=== PATIENT | female | born 1955 | race American Indian/Alaskan Native ===

== ENCOUNTER 2017-03-26 07:38 | Inpatient (IN) | payer OTHER ==
[2017-03-26 07:50] LABS: Hematocrit 38.8 % (30.3-42.9); Hemoglobin 12.8 gm/dl (10.1-14.3); Mean Corpuscular HGB Conc 33 % (30-34); Mean Corpuscular Hemoglobin 29 pg (28-32); Mean Corpuscular Volume 88 fl (79-97); Platelet Count 181 K/mm3 (140-440); Red Cell Distribution Width 19.9 % (13.2-15.2); White Blood Count 5.9 K/mm3 (4.5-11.0)
--- NOTE | 2017-03-26 07:59 | Cat Scan Report ---
CT scan of head without IV contrast: No previous studies available for comparison. History: Neural deficits. Findings: Ventricles are midline in location and dilated. Periventricular areas of low-attenuation. Large ill-defined area of low attenuation left temporoparietal region. No compression of the ventricle. No evidence of hemorrhage. No extra-axial fluid collection. Normal brainstem and cerebellum. Impression: Subacute or chronic ischemia in left temporoparietal region. Clinical correlation and if necessary MRI scan may be advised. Dr. García was informed of the findings at 7:52 AM on 03/26/17. [id number]
[2017-03-26 08:05] LABS: INR 2.21 (0.87-1.13)
[2017-03-26] MEDS ORDERED: BABY ASPIRIN PO ONE (08:06)
--- NOTE | 2017-03-26 08:06 | Emergency Department Report ---
ED Neuro Deficit HPI - General Chief Complaint: Neuro Symptoms/Deficit Stated Complaint: CVA Time Seen by Provider: 03/26/17 07:57 Source: patient, family, EMS (verbal report received from EMS.ems notes not available at time of chart dictation), RN notes reviewed Limitations: Physical Limitation - History of Present Illness Initial Comments: This is a 61-year-old female who was previously unknown to this provider. Primary care physician is with the [facility], has a past medical history of congestive heart failure, unknown what her ejection fraction is, stroke, residual right-sided weakness, currently on pradaxa; the patient's does not know when she last took her dose, and the patient is currently a phasic and not able to tell this provider. Patient is brought to the ER by EMS with concern for stroke. As per verbal report from and EMS, patient last seen normal last night, woke up this morning with left-sided hemiparesis and aphasia. The symptoms are constant, no exacerbating or relieving factors, patient is able to indicate "yes/no" to some questions, indicates no chest pain, shortness of breath is there, no abdominal pain, no urinary symptoms. -: unknown Location: speech, left arm, left leg Presenting Symptoms: Present: Weak/Paralyzed One Side, Unable to Speak Clearly History of same: Yes Place: home Severity: severe On Anticoagulants: Yes Context: other (patient woke up with symptoms) Treatments Prior to Arrival: none - Related Data Allergies/Adverse Reactions: Allergies Allergy/AdvReac Type Severity Reaction Status Date / Time No Known Allergies Allergy Verified 03/26/17 07:39 ED Review of Systems ROS: Stated complaint: CVA Other details as noted in HPI Comment: Unobtainable due to pts medical conditions ED Neuro Physical Exam - General Limitations: Physical Limitation General appearance: alert, anxious, in distress Suspected Stroke: Yes - Head Head exam: Present: atraumatic, normocephalic - Eye Eye exam: Present: normal appearance, PERRL, other (patient moves eyes to the right, but will not follow commands to move ice to the left) - ENT ENT exam: Present: normal orophraynx, mucous membranes moist - Neck Neck exam: Present: normal inspection, full ROM. Absent: tenderness, meningismus - Respiratory Respiratory exam: Present: decreased breath sounds. Absent: respiratory distress - Cardiovascular Cardiovascular Exam: Present: normal rhythm, tachycardia, normal heart sounds. Absent: systolic murmur, diastolic murmur, rubs, gallop - GI/Abdominal GI/Abdominal exam: Present: soft, normal bowel sounds. Absent: distended, tenderness, guarding, rebound, rigid, pulsatile mass - Extremities Exam Extremities exam: Present: normal inspection, pedal edema - Back Exam Back exam: Present: normal inspection. Absent: tenderness - Neurological Exam Neurological exam: Present: alert, motor sensory deficit - NIHSS Assessment Interval: Baseline 1a. Level of Consciousness: alert 1b. LOC Questions: answers no questions correctly 1c. LOC Commands: performs tasks correctly 2. Best Gaze: normal (unable to assess) 3. Visual: no visual loss (unable to assess) 4. Facial Palsy: normal symmetrical movement 5b. Motor Arm Right: no drift 5a. Motor Arm Left: no movement 6a. Motor Leg Left: no movement 6b. Motor Leg Right: no drift 7. Limb Ataxia: amputation 8. Sensory: mild/moderate sensory loss (unable to assess) 9. Best Language: mute/global aphasia 10. Dysarthria: intubated or other barrier 11. Extinction/Inattention: no abnormality - Psychiatric Psychiatric exam: Present: anxious - Skin Skin exam: Present: warm, dry, intact, normal color. Absent: rash ED Course Vital Signs 03/26/17 08:16 Temperature 98.4 F Pulse Rate 115 H Respiratory 18 Rate Blood Pressure 159/115 O2 Sat by Pulse 100 Oximetry - Reevaluation(s) Reevaluation #1: 03/26/17 09:35 Change in plans, [facility] does not have beds available at any of their facilities. [place]/ Dr Allen has authorized the patient to be admitted to this hospital. Case is presented to the nurse practitioner,Jarred Marshall; she accepts the patient' s to the medical service. 03/26/17 09:36 - Lab Data Result diagrams: 03/26/17 07:43 03/26/17 07:43 Lab Results 03/26/17 03/26/17 03/26/17 Range/Units 07:43 07:43 07:43 WBC 5.9 (4.5-11.0) K/mm3 RBC 4.40 (3.65-5.03) M/mm3 Hgb 12.8 (10.1-14.3) gm/dl Hct 38.8 (30.3-42.9) % MCV 88 (79-97) fl MCH 29 (28-32) pg MCHC 33 (30-34) % RDW 19.9 H (13.2-15.2) % Plt Count 181 (140-440) K/mm3 [place] % (Auto) [employer] Caret[employer] PT 25.6 H (12.2-14.9) Sec. INR 2.21 H (0.87-1.13) APTT 122.3 H* (24.2-36.6) Sec. Thrombin Time (15.1-19.6) Sec. Sodium 139 (137-145) mmol/L Potassium 4.1 (3.6-5.0) mmol/L Chloride 101.1 (98-107) mmol/L Carbon Dioxide 27 (22-30) mmol/L Anion Gap 15 mmol/L BUN 13 (7-17) mg/dL Creatinine 1.1 (0.7-1.2) mg/dL Estimated GFR 50 ml/min BUN/Creatinine Ratio 12 % Glucose 93 (65-100) mg/dL Calcium 8.1 L (8.4-10.2) mg/dL Troponin T 0.122 H* (0.00-0.029) ng/mL Triglycerides 80 (2-149) mg/dL Cholesterol 90 (50-199) mg/dL LDL Cholesterol Direct 26 L (50-130) mg/dL HDL Cholesterol 48 (40-59) mg/dL Cholesterol/HDL Ratio 1.87 % 03/26/ Range/Units 08:37 WBC (4.5-11.0) K/mm3 RBC (3.65-5.03) M/mm3 Hgb (10.1-14.3) gm/dl Hct (30.3-42.9) % MCV (79-97) fl MCH (28-32) pg MCHC (30-34) % RDW (13.2-15.2) % Plt Count (140-440) K/mm3 [place] % (Auto) PT (12.2-14.9) Sec. INR (0.87-1.13) APTT (24.2-36.6) Sec. Thrombin Time > 120.0 H (15.1-19.6) Sec. Sodium (137-145) mmol/L Potassium (3.6-5.0) mmol/L Chloride (98-107) mmol/L Carbon Dioxide (22-30) mmol/L Anion Gap mmol/L BUN (7-17) mg/dL Creatinine (0.7-1.2) mg/dL Estimated GFR ml/min BUN/Creatinine Ratio % Glucose (65-100) mg/dL Calcium (8.4-10.2) mg/dL Troponin T (0.00-0.029) ng/mL Triglycerides (2-149) mg/dL Cholesterol (50-199) mg/dL LDL Cholesterol Direct (50-130) mg/dL HDL Cholesterol (40-59) mg/dL Cholesterol/HDL Ratio % - EKG Data -: EKG Interpreted by Md - Radiology Data Radiology results: report reviewed, image reviewed X-ray of the chest demonstrates congestive heart failure. Noncontrast CT scan of the brain suggests subacute left-sided temporoparietal CVA - Medical Decision Making Differential diagnosis: Stroke, pneumonia, congestive heart failure, urinary tract infection Assessment and plan: 61-year-old female with wake-up symptoms, elevated NIH score. Patient has failed swallow screen. She is on systemic anticoagulation, last known ingestion is unknown, INR greater than 2, given wake of symptoms, and the aforementioned, patient is not a TPA candidate for thrombolysis candidate. The patient's CT scan was transmitted to [place], case was discussed with their stroke expert, Dr. Israel, and based on the aforementioned, patient is not deemed to be a candidate for endovascular or rescue salvage therapy. Case is discussed with [facility] physician, Dr. Allen, who in turn has presented the case to their stroke neurologist, Dr. Shah, and the patient is accepted to [facility] for definitive evaluation and management. Also found to be in congestive heart failure, Lasix ordered, rectal aspirin administered. - Core Measures Measure Exclusions: not indicated - Thrombolytic Inclusion/Exclusion Thrombolytic Exclusion Criteria: Symptom Onset > 3 Hours Thrombolytic Contraindications: INR > 1.7 seconds Critical care attestation.: If time is entered above; I have spent that time in minutes in the direct care of this critically ill patient, excluding procedure time. ED Disposition Clinical Impression: CHF (congestive heart failure) CVA (cerebral vascular accident) Qualifiers: CVA mechanism: unspecified Qualified Code(s): I63.9 - Cerebral infarction, unspecified Disposition: DC-09 OP ADMIT IP TO THIS HOSP Is pt being admited?: Yes Does the pt Need Aspirin: Yes Condition: Fair Referrals: HILARIO LOPEZ [Other] - 3-5 Days
[2017-03-26 08:07] LABS: Calcium 8.1 mg/dL (8.4-10.2); Chloride 101.1 mmol/L (98-107); Potassium 4.1 mmol/L (3.6-5.0)
[2017-03-26 08:22] LABS: Partial Thromboplastin Time 122.3 Sec. (24.2-36.6)
--- NOTE | 2017-03-26 08:35 | XRay Report ---
AP CHEST :03/26/17 07:38:00 CLINICAL: Difficulty breathing. COMPARISON:None. FINDINGS: The heart is large. Redistribution of pulmonary blood flow to the upper lobes. Bibasal opacities with silhouetting of the right heart border and opacification of the right costophrenic angle. Less opacification in the left lung base. The left hemidiaphragm is partially imaged and the left costophrenic angle is clear. A band of subsegmental atelectasis in the left lung. No tubes or lines. The bones and soft tissues are normal. IMPRESSION: Congestive heart failure with small pleural effusions, right greater than left. No alveolar pulmonary edema.
[2017-03-26] MEDS ORDERED: ASPIRIN PR ONE (08:59)
[2017-03-26] MEDS ORDERED: LASIX IV ONE (09:13)
[2017-03-26] MEDS ORDERED: MILK OF MAGNESIA PO PRN (10:35)
[2017-03-26] MEDS ORDERED: ZOFRAN IV PRN ×2 (10:35→13:44)
[2017-03-26] MEDS ORDERED: TYLENOL PO PRN (10:35)
[2017-03-26] MEDS ORDERED: DULCOLAX PR PRN (10:35)
[2017-03-26] MEDS ORDERED: REGLAN PO PRN ×2 (11:00→13:53)
[2017-03-26] MEDS ORDERED: PHENERGAN PR PRN (11:00)
[2017-03-26] MEDS ORDERED: SODIUM CHLORIDE FLUSH SYRINGE 10 ML IV PRN (11:00)
--- NOTE | 2017-03-26 11:10 | History and Physical Report ---
<BEBEVI SEXTON - Last Filed: 03/27/17 10:24> History of Present Illness Date of examination: 03/26/17 Date of admission: 03/26/17 10:35 Chief complaint: CVA History of present illness: Patient is a 61 years old female with past medical history hypertension, CHF, hypertension, hyperlipidemia and stroke stroke, residual right-sided weakness, currently on pradaxa. 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 patient is unable to describe exacerbating or relieving factors.Unable to obtain history due to patient's mental status. Per ER physician and charts patient is brought to the ER by EMS with concern for stroke. As per verbal report from and EMS, patient last seen normal last night, woke up this morning with left-sided hemiparesis and aphasia. Past History Past Medical History: heart failure, hypertension, hyperlipidemia Past Surgical History: Other (unable to assess due to patient mental status) Social history: other (unable to assess due to patient mental status) Family history: other (unable to assess due to patient mental status) Medications and Allergies Allergies Allergy/AdvReac Type Severity Reaction Status Date / Time No Known Allergies Allergy Verified 03/26/17 07:39 Home Medications Medication Instructions Recorded Confirmed Last Taken Type AtorvaSTATin [Lipitor] 80 mg PO QHS 03/26/17 03/26/17 Unknown History Dabigatran [Pradaxa] 150 mg PO BID 03/26/17 03/26/17 Unknown History ISOSORBIDE MONOnitrate [Imdur ER] 60 mg PO QDAY 03/26/17 03/26/17 Unknown History Lisinopril [Zestril] 5 mg PO QDAY 03/26/17 03/26/17 Unknown History Metoprolol [Lopressor] 25 mg PO DAILY 03/26/17 03/26/17 Unknown History Potassium Chloride [K-Dur] 20 meq PO QDAY 03/26/17 03/26/17 Unknown History Torsemide [Demadex] 20 mg PO DAILY 03/26/17 03/26/17 Unknown History hydrALAZINE [Apresoline] 25 mg PO BID 03/26/17 03/26/17 Unknown History Active Meds: Active Medications Acetaminophen (Tylenol) 650 mg PO Q4H PRN PRN Reason: Pain MILD(1-3)/Fever >100.5/BURGESS Aspirin (Aspirin) 300 mg GA QDAY KARLENE Atorvastatin Calcium (Lipitor) 80 mg PO QHS KARLENE Bisacodyl (Dulcolax) 10 mg GA QDAY PRN PRN Reason: Constipation unrelieved by MOM Magnesium Hydroxide (Milk Of Magnesia) 30 ml PO Q4H PRN PRN Reason: Constipation Metoclopramide HCl (Reglan) 10 mg PO Q6H PRN PRN Reason: Nausea And Vomiting Ondansetron HCl (Zofran) 4 mg IV Q8H PRN PRN Reason: N/V unrelieved by Reglan Promethazine HCl (Phenergan) 25 mg GA Q6H PRN PRN Reason: Nausea And Vomiting Simvastatin (Zocor) 20 mg PO QHS KARLENE Sodium Chloride (Sodium Chloride Flush Syringe 10 Ml) 10 ml IV PRN PRN PRN Reason: LINE FLUSH Review of Systems ROS unobtainable: due to mental status (unable to assess due to patient mental status) Exam - Constitutional Vitals: Temp Pulse Resp BP Pulse Ox 98.4 F 115 H 18 159/115 100 03/26/17 08:16 03/26/17 08:16 03/26/17 08:16 03/26/17 08:16 03/26/17 08:16 General appearance: Present: other ( Patient aphasic and does not speak) - EENT Eyes: Present: PERRL ENT: hearing intact - Neck Neck: Present: supple - Respiratory Respiratory effort: normal - Cardiovascular Rhythm: regular Heart Sounds: Present: S1 & S2 - Extremities Extremities: abnormal (left side Weakness) Extremity abnormal: other (left-sided weakness) - Abdominal General gastrointestinal: Present: soft, non-tender Female genitourinary: Present: deferred - Rectal Rectal Exam: deferred - Integumentary Integumentary: Present: clear, warm, dry - Musculoskeletal Musculoskeletal: left sided weakness, other (left-sided weakness) - Psychiatric Psychiatric: other (impaired judgment) - Neurologic Neurologic: other (can move right lower and upper extremity) - Allied Health Allied health notes reviewed: nursing Results - Labs CBC & Chem 7: 03/27/17 04:38 03/27/17 04:38 Labs: Laboratory Last Values WBC 5.9 K/mm3 (4.5-11.0) 03/26/17 07:43 RBC 4.40 M/mm3 (3.65-5.03) 03/26/17 07:43 Hgb 12.8 gm/dl (10.1-14.3) 03/26/17 07:43 Hct 38.8 % (30.3-42.9) 03/26/17 07:43 MCV 88 fl (79-97) 03/26/17 07:43 MCH 29 pg (28-32) 03/26/17 07:43 MCHC 33 % (30-34) 03/26/17 07:43 RDW 19.9 % (13.2-15.2) H 03/26/17 07:43 Plt Count 181 K/mm3 (140-440) 03/26/17 07:43 [place] % (Auto) Outreach Consultant 03/26/17 07:43 PT 25.6 Sec. (12.2-14.9) H 03/26/17 07:43 INR 2.21 (0.87-1.13) H 03/26/17 07:43 APTT 122.3 Sec. (24.2-36.6) H* 03/26/17 07:43 Thrombin Time > 120.0 Sec. (15.1-19.6) H 03/26/17 08:37 Sodium 139 mmol/L (137-145) 03/26/17 07:43 Potassium 4.1 mmol/L (3.6-5.0) 03/26/17 07:43 Chloride 101.1 mmol/L (98-107) 03/26/17 07:43 Carbon Dioxide 27 mmol/L (22-30) 03/26/17 07:43 Anion Gap 15 mmol/L 03/26/17 07:43 BUN 13 mg/dL (7-17) 03/26/17 07:43 Creatinine 1.1 mg/dL (0.7-1.2) 03/26/17 07:43 Estimated GFR 50 ml/min 03/26/17 07:43 BUN/Creatinine Ratio 12 % 03/26/17 07:43 Glucose 93 mg/dL (65-100) 03/26/17 07:43 POC Glucose 98 (70-105) 03/26/17 10:07 Calcium 8.1 mg/dL (8.4-10.2) L 03/26/17 07:43 Troponin T 0.122 ng/mL (0.00-0.029) H* 03/26/17 07:43 Triglycerides 80 mg/dL (2-149) 03/26/17 07:43 Cholesterol 90 mg/dL (50-199) 03/26/17 07:43 LDL Cholesterol Direct 26 mg/dL (50-130) L 03/26/17 07:43 HDL Cholesterol 48 mg/dL (40-59) 03/26/17 07:43 Cholesterol/HDL Ratio 1.87 % 03/26/17 07:43 - Imaging and Cardiology CT Scan - head: image reviewed (Noncontrast CT scan of the brain suggests subacute left-sided temporoparietal CVA) Assessment and Plan Assessment and plan: Acute Cerebrovascular accident (CVA) Noncontrast CT scan of the brain suggests subacute left-sided temporoparietal CVA No TPA candidate given wake up with symptoms. In addition, patient not an endovascular candidate given NR greater than 2.. MRI ordered VL carotid ordered Echocardiogram ordered Started on aspirin and hold Pradaxa for Hypercoagulable state Resume statins Frequent neuro checks. Neurology consult Supportive care Left-side Hemiparesis Ethology Cerebrovascular Physical /occupational therapy on board Supportive care Acute on chronic systolic Congestive heart failure Recent Echocardiogram in [place] awaiting for medical report. Restart on Diuresis, beta blockers and ACEI/ARB Strict I&O's and daily weights Low-sodium/cardiac diet/fluid restriction 1200mL in 24 hours. Closely monitor electrolytes Cardiology evaluation Hypertensive urgency/emergency Gently IV hydralazine for SBP> 160 Closely monitor blood pressure Urinary tract infection follow urine cultures Initiated empiric IV Levaquin Gently IV fluid despite of CHF Suspected pneumonia Chest xray shows pleural effusion Initiated empiric IV Levaquin Hypercoagulable state hold Pradaxa for Hypercoagulable state Closely monitor INR DVT prophylaxis SCD for now Advance Directives: Yes VTE prophylaxis?: Mechanical Contraindication Mechanical VTE Prophylaxis: Contraindicated Plan of care discussed with patient/family: Yes <LEE FOSTER R - Last Filed: 03/27/17 10:44> History of Present Illness Date of admission: 03/26/17 10:35 Medications and Allergies Active Meds: Active Medications Acetaminophen (Tylenol) 650 mg PO Q4H PRN PRN Reason: Pain MILD(1-3)/Fever >100.5/BURGESS Atorvastatin Calcium (Lipitor) 80 mg PO QHS [facility] Last Admin: 03/26/17 21:02 Dose: Not Given Bisacodyl (Dulcolax) 10 mg GA QDAY PRN PRN Reason: Constipation unrelieved by MOM Dextrose (D50w (25gm) Syringe) 25 ml IV PRN PRN PRN Reason: Hypoglycemia Levofloxacin/Dextrose (Levaquin 750mg/150ml) 750 mg in 150 mls @ 100 mls/hr IV Q48H KARLENE PRN Reason: Protocol Last Admin: 03/26/17 14:56 Dose: 100 mls/hr Dextrose/Sodium Chloride (D5ns) 1,000 mls @ 75 mls/hr IV DIRECT KARLENE Last Admin: 03/27/17 05:57 Dose: 75 mls/hr Magnesium Hydroxide (Milk Of Magnesia) 30 ml PO Q4H PRN PRN Reason: Constipation Metoclopramide HCl (Reglan) 5 mg PO Q6H PRN PRN Reason: Nausea And Vomiting Ondansetron HCl (Zofran) 4 mg IV Q8H PRN PRN Reason: N/V unrelieved by Reglan Potassium Chloride (K-Dur) 20 meq PO QDAY [facility] Promethazine HCl (Phenergan) 25 mg GA Q6H PRN PRN Reason: Nausea And Vomiting Sodium Chloride (Sodium Chloride Flush Syringe 10 Ml) 10 ml IV PRN PRN PRN Reason: LINE FLUSH Exam - Constitutional Vitals: Temp Pulse Resp BP Pulse Ox 98.1 F 97 H 20 120/66 99 03/27/17 04:39 03/27/17 04:39 03/27/17 04:39 03/27/17 04:39 03/27/17 04:39 Results - Labs CBC & Chem 7: 03/27/17 04:38 03/27/17 04:38 Labs: Laboratory Last Values WBC 5.1 K/mm3 (4.5-11.0) 03/27/17 04:38 RBC 4.37 M/mm3 (3.65-5.03) 03/27/17 04:38 Hgb 12.9 gm/dl (10.1-14.3) 03/27/17 04:38 Hct 38.4 % (30.3-42.9) 03/27/17 04:38 MCV 88 fl (79-97) 03/27/17 04:38 MCH 30 pg (28-32) 03/27/17 04:38 MCHC 34 % (30-34) 03/27/17 04:38 RDW 20.1 % (13.2-15.2) H 03/27/17 04:38 Plt Count 177 K/mm3 (140-440) 03/27/17 04:38 [place] % (Auto) Outreach Consultant 03/27/17 04:38 Add Manual Diff Complete 03/27/17 04:38 Total Counted 100 03/27/17 04:38 Seg Neuts % (Manual) 73.0 % (40.0-70.0) H 03/27/17 04:38 Band Neutrophils % 0 % 03/27/17 04:38 Lymphocytes % (Manual) 18.0 % (13.4-35.0) 03/27/17 04:38 Reactive Lymphs % (Man) 2.0 % 03/27/17 04:38 Monocytes % (Manual) 6.0 % (0.0-7.3) 03/27/17 04:38 Eosinophils % (Manual) 1.0 % (0.0-4.3) 03/27/17 04:38 Basophils % (Manual) 0 % (0.0-1.8) 03/27/17 04:38 Metamyelocytes % 0 % 03/27/17 04:38 Myelocytes % 0 % 03/27/17 04:38 Promyelocytes % 0 % 03/27/17 04:38 Blast Cells % 0 % 03/27/17 04:38 Nucleated RBC % Not Reportable 03/27/17 04:38 Seg Neutrophils # Man 3.7 K/mm3 (1.8-7.7) 03/27/17 04:38 Band Neutrophils # 0.0 K/mm3 03/27/17 04:38 Lymphocytes # (Manual) 0.9 K/mm3 (1.2-5.4) L 03/27/17 04:38 Abs React Lymphs (Man) 0.1 K/mm3 03/27/17 04:38 Monocytes # (Manual) 0.3 K/mm3 (0.0-0.8) 03/27/17 04:38 Eosinophils # (Manual) 0.1 K/mm3 (0.0-0.4) 03/27/17 04:38 Basophils # (Manual) 0.0 K/mm3 (0.0-0.1) 03/27/17 04:38 Metamyelocytes # 0.0 K/mm3 03/27/17 04:38 Myelocytes # 0.0 K/mm3 03/27/17 04:38 Promyelocytes # 0.0 K/mm3 03/27/17 04:38 Blast Cells # 0.0 K/mm3 03/27/17 04:38 WBC Morphology Not Reportable 03/27/17 04:38 Hypersegmented Neuts Not Reportable 03/27/17 04:38 Hyposegmented Neuts Not Reportable 03/27/17 04:38 Hypogranular Neuts Not Reportable 03/27/17 04:38 Smudge Cells Not Reportable 03/27/17 04:38 Toxic Granulation Not Reportable 03/27/17 04:38 Toxic Vacuolation Not Reportable 03/27/17 04:38 Dohle Bodies Not Reportable 03/27/17 04:38 Pelger-Huet Anomaly Not Reportable 03/27/17 04:38 Kristin Rods Not Reportable 03/27/17 04:38 Platelet Estimate Consistent w auto 03/27/17 04:38 Clumped Platelets Not Reportable 03/27/17 04:38 Plt Clumps, EDTA Not Reportable 03/27/17 04:38 Large Platelets Few 03/27/17 04:38 Giant Platelets Not Reportable 03/27/17 04:38 Platelet Satelliting Not Reportable 03/27/17 04:38 Plt Morphology Comment Not Reportable 03/27/17 04:38 RBC Morphology Not Reportable 03/27/17 04:38 Dimorphic RBCs Not Reportable 03/27/17 04:38 Polychromasia Not Reportable 03/27/17 04:38 Hypochromasia 1+ 03/27/17 04:38 Poikilocytosis Not Reportable 03/27/17 04:38 Anisocytosis 1+ 03/27/17 04:38 Microcytosis Not Reportable 03/27/17 04:38 Macrocytosis 1+ 03/27/17 04:38 Spherocytes Not Reportable 03/27/17 04:38 Pappenheimer Bodies Not Reportable 03/27/17 04:38 Sickle Cells Not Reportable 03/27/17 04:38 Target Cells 1+ 03/27/17 04:38 Tear Drop Cells Not Reportable 03/27/17 04:38 Ovalocytes Not Reportable 03/27/17 04:38 Helmet Cells Not Reportable 03/27/17 04:38 [place] Bodies Not Reportable 03/27/17 04:38 [place] Rings Not Reportable 03/27/17 04:38 [place] Cells Not Reportable 03/27/17 04:38 Bite Cells Not Reportable 03/27/17 04:38 Crenated Cell Not Reportable 03/27/17 04:38 Elliptocytes Not Reportable 03/27/17 04:38 Acanthocytes (Spur) Not Reportable 03/27/17 04:38 Rouleaux Not Reportable 03/27/17 04:38 Hemoglobin C Crystals Not Reportable 03/27/17 04:38 Schistocytes Not Reportable 03/27/17 04:38 Malaria parasites Not Reportable 03/27/17 04:38 Wilver Bodies Not Reportable 03/27/17 04:38 Hem Pathologist Commnt No 03/27/17 04:38 PT 22.8 Sec. (12.2-14.9) H 03/27/17 04:38 INR 1.91 (0.87-1.13) H 03/27/17 04:38 APTT 107.4 Sec. (24.2-36.6) H* 03/27/17 04:38 Thrombin Time > 120.0 Sec. (15.1-19.6) H 03/26/17 08:37 Sodium 142 mmol/L (137-145) 03/27/17 04:38 Potassium 3.9 mmol/L (3.6-5.0) 03/27/17 04:38 Chloride 100.0 mmol/L (98-107) 03/27/17 04:38 Carbon Dioxide 27 mmol/L (22-30) 03/27/17 04:38 Anion Gap 19 mmol/L 03/27/17 04:38 BUN 13 mg/dL (7-17) 03/27/17 04:38 Creatinine 1.2 mg/dL (0.7-1.2) 03/27/17 04:38 Estimated GFR 55 ml/min 03/27/17 04:38 BUN/Creatinine Ratio 11 % 03/27/17 04:38 Glucose 120 mg/dL (65-100) H 03/27/17 04:38 POC Glucose 113 (70-105) H 03/27/17 07:32 Calcium 8.2 mg/dL (8.4-10.2) L 03/27/17 04:38 Total Bilirubin 0.90 mg/dL (0.1-1.2) 03/27/17 04:38 AST 39 units/L (5-40) 03/27/17 04:38 ALT 30 units/L (7-56) 03/27/17 04:38 Alkaline Phosphatase 118 units/L (35-129) 03/27/17 04:38 Total Creatine Kinase 84 units/L (30-135) 03/27/17 04:38 CK-MB (CK-2) 2.3 ng/mL (0.0-4.0) 03/27/17 04:38 CK-MB (CK-2) Rel Index 2.7 (0-4) 03/27/17 04:38 Troponin T 0.074 ng/mL (0.00-0.029) H D 03/26/17 14:51 Total Protein 6.0 g/dL (6.3-8.2) L 03/27/17 04:38 Albumin 2.3 g/dL (3.9-5) L 03/27/17 04:38 Albumin/Globulin Ratio 0.6 % 03/27/17 04:38 Triglycerides 80 mg/dL (2-149) 03/26/17 07:43 Cholesterol 90 mg/dL (50-199) 03/26/17 07:43 LDL Cholesterol Direct 26 mg/dL (50-130) L 03/26/17 07:43 HDL Cholesterol 48 mg/dL (40-59) 03/26/17 07:43 Cholesterol/HDL Ratio 1.87 % 03/26/17 07:43 Urine Color Red (Yellow) 03/26/17 12:06 Urine Turbidity Clear (Clear) 03/26/17 12:06 Urine pH 7.0 (5.0-7.0) 03/26/17 12:06 Ur Specific [place] 1.010 (1.003-1.030) 03/26/17 12:06 Urine Protein 100 mg/dl mg/dL (Negative) 03/26/17 12:06 Urine Glucose (UA) Neg mg/dL (Negative) 03/26/17 12:06 Urine Ketones Neg mg/dL (Negative) 03/26/17 12:06 Urine Blood Lg (Negative) 03/26/17 12:06 Urine Nitrite Neg (Negative) 03/26/17 12:06 Urine Bilirubin Neg (Negative) 03/26/17 12:06 Urine Urobilinogen < 2.0 mg/dL (<2.0) 03/26/17 12:06 Ur Leukocyte Esterase Sm (Negative) 03/26/17 12:06 Urine WBC (Auto) > 182.0 /HPF (0.0-6.0) H 03/26/17 12:06 Urine RBC (Auto) > 182.0 /HPF (0.0-6.0) 03/26/17 12:06 U Epithel Cells (Auto) 11.0 /HPF (0-13.0) 03/26/17 12:06 Urine Bacteria (Auto) 1+ /HPF (Negative) 03/26/17 12:06 Assessment and Plan Assessment and plan: I saw and evaluated the patient on 03/26/17. I agree with the findings and the plan of care as documented in the Nurse Practitioner's~note. Will hold aspirin , pradaxa for for Hypercoagulable state .
[2017-03-26 11:44] LABS: Blastocytes % (Manual) 0 %
[2017-03-26 11:45] LABS: Basophils % (Manual) 0 % (0.0-1.8)
[2017-03-26 11:47] LABS: Anisocytosis 1+; Hypochromasia 1+; Macrocytosis 1+
[2017-03-26 11:48] LABS: Diff Status Complete
[2017-03-26 13:24] LABS: Bacteria,Urine 1+ /HPF (Negative); Bilirubin,Urine NEG (Negative); Blood,Urine LG (Negative); Ketones,Urine NEG (Negative); Leukocyte Esterase,Urine SM (Negative); Nitrite,Urine NEG (Negative); Urobilinogen,Urine < 2.0 mg/dL (<2.0)
[2017-03-26 13:34] LABS: RBC,Urine > 182.0 /HPF (0.0-6.0); WBC,Urine > 182.0 /HPF (0.0-6.0)
[2017-03-26] MEDS ORDERED: LEVAQUIN 750MG/150ML 750 MG/150 ML BAG IV SCH (14:15)
[2017-03-26] MEDS ORDERED: D50W (25GM) Vial IV PRN (20:37)
[2017-03-26] MEDS ORDERED: D50W (25GM) Syringe IV ONE (20:49)
[2017-03-26] MEDS ORDERED: D50W (25GM) Syringe IV PRN (20:50)
[2017-03-26] MEDS: D5NS 1,000 ML IV SCH (20:51)
[2017-03-26] MEDS ORDERED: ZOCOR PO SCH (22:00)
[2017-03-27 05:28] LABS: Hematocrit 38.4 % (30.3-42.9); Hemoglobin 12.9 gm/dl (10.1-14.3); Mean Corpuscular HGB Conc 34 % (30-34); Mean Corpuscular Hemoglobin 30 pg (28-32); Mean Corpuscular Volume 88 fl (79-97); Platelet Count 177 K/mm3 (140-440); Red Blood Count 4.37 M/mm3 (3.65-5.03); White Blood Count 5.1 K/mm3 (4.5-11.0)
[2017-03-27 05:31] LABS: Red Cell Distribution Width 20.1 % (13.2-15.2)
[2017-03-27 05:35] LABS: INR 1.91 (0.87-1.13)
[2017-03-27 05:45] LABS: Creatine Kinase MB 2.3 ng/mL (0.0-4.0)
[2017-03-27 05:55] LABS: Albumin 2.3 g/dL (3.9-5); Albumin/Globulin Ratio 0.6 %; Bilirubin,Total 0.9 mg/dL (0.1-1.2); Calcium 8.2 mg/dL (8.4-10.2); Potassium 3.9 mmol/L (3.6-5.0)
[2017-03-27] MEDS: D5NS 1,000 ML IV SCH (05:57)
[2017-03-27 06:07] LABS: Partial Thromboplastin Time 107.4 Sec. (24.2-36.6)
[2017-03-27 07:27] LABS: Blastocytes % (Manual) 0 %
[2017-03-27 07:28] LABS: Anisocytosis 1+; Basophils % (Manual) 0 % (0.0-1.8); Hypochromasia 1+; Macrocytosis 1+; Target Cells 1+
[2017-03-27 07:29] LABS: Diff Status Complete; Large Platelets Few; Platelet Estimate Consistent w Auto
--- NOTE | 2017-03-27 07:33 | Progress Note ---
Hospitalist Physical - Constitutional Vitals: Temp Pulse Resp BP Pulse Ox 98.1 F 97 H 20 120/66 99 03/27/17 04:39 03/27/17 04:39 03/27/17 04:39 03/27/17 04:39 03/27/17 04:39 General appearance: Present: other ( Patient aphasic and does not speak) Results - Labs CBC & Chem 7: 03/27/17 04:38 03/27/17 04:38 Labs: Laboratory Last Values WBC 5.1 K/mm3 (4.5-11.0) 03/27/17 04:38 RBC 4.37 M/mm3 (3.65-5.03) 03/27/17 04:38 Hgb 12.9 gm/dl (10.1-14.3) 03/27/17 04:38 Hct 38.4 % (30.3-42.9) 03/27/17 04:38 MCV 88 fl (79-97) 03/27/17 04:38 MCH 30 pg (28-32) 03/27/17 04:38 MCHC 34 % (30-34) 03/27/17 04:38 RDW 20.1 % (13.2-15.2) H 03/27/17 04:38 Plt Count 177 K/mm3 (140-440) 03/27/17 04:38 [place] % (Auto) Butter Fat Tester 03/27/17 04:38 Add Manual Diff Complete 03/27/17 04:38 Total Counted 100 03/27/17 04:38 Seg Neuts % (Manual) 73.0 % (40.0-70.0) H 03/27/17 04:38 Band Neutrophils % 0 % 03/27/17 04:38 Lymphocytes % (Manual) 18.0 % (13.4-35.0) 03/27/17 04:38 Reactive Lymphs % (Man) 2.0 % 03/27/17 04:38 Monocytes % (Manual) 6.0 % (0.0-7.3) 03/27/17 04:38 Eosinophils % (Manual) 1.0 % (0.0-4.3) 03/27/17 04:38 Basophils % (Manual) 0 % (0.0-1.8) 03/27/17 04:38 Metamyelocytes % 0 % 03/27/17 04:38 Myelocytes % 0 % 03/27/17 04:38 Promyelocytes % 0 % 03/27/17 04:38 Blast Cells % 0 % 03/27/17 04:38 Nucleated RBC % Not Reportable 03/27/17 04:38 Seg Neutrophils # Man 3.7 K/mm3 (1.8-7.7) 03/27/17 04:38 Band Neutrophils # 0.0 K/mm3 03/27/17 04:38 Lymphocytes # (Manual) 0.9 K/mm3 (1.2-5.4) L 03/27/17 04:38 Abs React Lymphs (Man) 0.1 K/mm3 03/27/17 04:38 Monocytes # (Manual) 0.3 K/mm3 (0.0-0.8) 03/27/17 04:38 Eosinophils # (Manual) 0.1 K/mm3 (0.0-0.4) 03/27/17 04:38 Basophils # (Manual) 0.0 K/mm3 (0.0-0.1) 03/27/17 04:38 Metamyelocytes # 0.0 K/mm3 03/27/17 04:38 Myelocytes # 0.0 K/mm3 03/27/17 04:38 Promyelocytes # 0.0 K/mm3 03/27/17 04:38 Blast Cells # 0.0 K/mm3 03/27/17 04:38 WBC Morphology Not Reportable 03/27/17 04:38 Hypersegmented Neuts Not Reportable 03/27/17 04:38 Hyposegmented Neuts Not Reportable 03/27/17 04:38 Hypogranular Neuts Not Reportable 03/27/17 04:38 Smudge Cells Not Reportable 03/27/17 04:38 Toxic Granulation Not Reportable 03/27/17 04:38 Toxic Vacuolation Not Reportable 03/27/17 04:38 Dohle Bodies Not Reportable 03/27/17 04:38 Pelger-Huet Anomaly Not Reportable 03/27/17 04:38 Kristin Rods Not Reportable 03/27/17 04:38 Platelet Estimate Consistent w auto 03/27/17 04:38 Clumped Platelets Not Reportable 03/27/17 04:38 Plt Clumps, EDTA Not Reportable 03/27/17 04:38 Large Platelets Few 03/27/17 04:38 Giant Platelets Not Reportable 03/27/17 04:38 Platelet Satelliting Not Reportable 03/27/17 04:38 Plt Morphology Comment Not Reportable 03/27/17 04:38 RBC Morphology Not Reportable 03/27/17 04:38 Dimorphic RBCs Not Reportable 03/27/17 04:38 Polychromasia Not Reportable 03/27/17 04:38 Hypochromasia 1+ 03/27/17 04:38 Poikilocytosis Not Reportable 03/27/17 04:38 Anisocytosis 1+ 03/27/17 04:38 Microcytosis Not Reportable 03/27/17 04:38 Macrocytosis 1+ 03/27/17 04:38 Spherocytes Not Reportable 03/27/17 04:38 Pappenheimer Bodies Not Reportable 03/27/17 04:38 Sickle Cells Not Reportable 03/27/17 04:38 Target Cells 1+ 03/27/17 04:38 Tear Drop Cells Not Reportable 03/27/17 04:38 Ovalocytes Not Reportable 03/27/17 04:38 Helmet Cells Not Reportable 03/27/17 04:38 [place] Bodies Not Reportable 03/27/17 04:38 [place] Rings Not Reportable 03/27/17 04:38 Lul Cells Not Reportable 03/27/17 04:38 Bite Cells Not Reportable 03/27/17 04:38 Crenated Cell Not Reportable 03/27/17 04:38 Elliptocytes Not Reportable 03/27/17 04:38 Acanthocytes (Spur) Not Reportable 03/27/17 04:38 Rouleaux Not Reportable 03/27/17 04:38 Hemoglobin C Crystals Not Reportable 03/27/17 04:38 Schistocytes Not Reportable 03/27/17 04:38 Malaria parasites Not Reportable 03/27/17 04:38 Wilver Bodies Not Reportable 03/27/17 04:38 Hem Pathologist Commnt No 03/27/17 04:38 PT 22.8 Sec. (12.2-14.9) H 03/27/17 04:38 INR 1.91 (0.87-1.13) H 03/27/17 04:38 APTT 107.4 Sec. (24.2-36.6) H* 03/27/17 04:38 Thrombin Time > 120.0 Sec. (15.1-19.6) H 03/26/17 08:37 Sodium 142 mmol/L (137-145) 03/27/17 04:38 Potassium 3.9 mmol/L (3.6-5.0) 03/27/17 04:38 Chloride 100.0 mmol/L (98-107) 03/27/17 04:38 Carbon Dioxide 27 mmol/L (22-30) 03/27/17 04:38 Anion Gap 19 mmol/L 03/27/17 04:38 BUN 13 mg/dL (7-17) 03/27/17 04:38 Creatinine 1.2 mg/dL (0.7-1.2) 03/27/17 04:38 Estimated GFR 55 ml/min 03/27/17 04:38 BUN/Creatinine Ratio 11 % 03/27/17 04:38 Glucose 120 mg/dL (65-100) H 03/27/17 04:38 POC Glucose 130 (70-105) H 03/26/17 21:30 Calcium 8.2 mg/dL (8.4-10.2) L 03/27/17 04:38 Total Bilirubin 0.90 mg/dL (0.1-1.2) 03/27/17 04:38 AST 39 units/L (5-40) 03/27/17 04:38 ALT 30 units/L (7-56) 03/27/17 04:38 Alkaline Phosphatase 118 units/L (35-129) 03/27/17 04:38 Total Creatine Kinase 84 units/L (30-135) 03/27/17 04:38 CK-MB (CK-2) 2.3 ng/mL (0.0-4.0) 03/27/17 04:38 CK-MB (CK-2) Rel Index 2.7 (0-4) 03/27/17 04:38 Troponin T 0.074 ng/mL (0.00-0.029) H D 03/26/17 14:51 Total Protein 6.0 g/dL (6.3-8.2) L 03/27/17 04:38 Albumin 2.3 g/dL (3.9-5) L 03/27/17 04:38 Albumin/Globulin Ratio 0.6 % 03/27/17 04:38 Triglycerides 80 mg/dL (2-149) 03/26/17 07:43 Cholesterol 90 mg/dL (50-199) 03/26/17 07:43 LDL Cholesterol Direct 26 mg/dL (50-130) L 03/26/17 07:43 HDL Cholesterol 48 mg/dL (40-59) 03/26/17 07:43 Cholesterol/HDL Ratio 1.87 % 03/26/17 07:43 Urine Color Red (Yellow) 03/26/17 12:06 Urine Turbidity Clear (Clear) 03/26/17 12:06 Urine pH 7.0 (5.0-7.0) 03/26/17 12:06 Ur Specific [place] 1.010 (1.003-1.030) 03/26/17 12:06 Urine Protein 100 mg/dl mg/dL (Negative) 03/26/17 12:06 Urine Glucose (UA) Neg mg/dL (Negative) 03/26/17 12:06 Urine Ketones Neg mg/dL (Negative) 03/26/17 12:06 Urine Blood Lg (Negative) 03/26/17 12:06 Urine Nitrite Neg (Negative) 03/26/17 12:06 Urine Bilirubin Neg (Negative) 03/26/17 12:06 Urine Urobilinogen < 2.0 mg/dL (<2.0) 03/26/17 12:06 Ur Leukocyte Esterase Sm (Negative) 03/26/17 12:06 Urine WBC (Auto) > 182.0 /HPF (0.0-6.0) H 03/26/17 12:06 Urine RBC (Auto) > 182.0 /HPF (0.0-6.0) 03/26/17 12:06 U Epithel Cells (Auto) 11.0 /HPF (0-13.0) 03/26/17 12:06 Urine Bacteria (Auto) 1+ /HPF (Negative) 03/26/17 12:06
[2017-03-27] MEDS ORDERED: ASPIRIN PR SCH (10:00)
[2017-03-27] MEDS ORDERED: K-DUR PO SCH (10:00)
--- NOTE | 2017-03-27 13:05 | Magnetic Resonance Report ---
MRI OF THE BRAIN WITHOUT CONTRAST: HISTORY: CVA PROCEDURE: Multiplanar, multisequence MR imaging of the brain without IV contrast was performed. FINDINGS: The CT head without contrast dated 03/26/17 was reviewed. MRI demonstrates a large area of diffusion restriction throughout most of the right MCA distribution measuring 10.5 x 4.9 cm in axial plane. There is diffusion restriction throughout the posterior right frontal lobe, right temporal lobe, right parietal lobe and right basal ganglia. There is mild edema in these areas on the T2 weighted images but no evidence for hemorrhage or significant mass effect. Moderate volume loss and chronic white matter changes are identified. Chronic lacunar infarcts are identified in the bilateral thalami and bilateral ankur. An approximate 4 cm cortical infarct is identified in the left parietal lobe The midline structures are central. The basal cisterns are patent. Normal ventricular size. The orbital cavities and sella turcica demonstrate no abnormality. The visualized paranasal sinuses and mastoid air cells are well aerated. IMPRESSION: Large area diffusion restriction throughout most of the right MCA distribution consistent with a subacute ischemic infarct. Chronic white matter changes and volume loss. Chronic lacunar infarcts in the basal ganglia and ankur. Chronic cortical infarct in the left parietal lobe.
--- NOTE | 2017-03-27 15:08 | Progress Note ---
Assessment and Plan Assessment and plan: Patient is a 61 years old female with past medical history hypertension, CHF, hypertension, hyperlipidemia and stroke stroke, residual right-sided weakness, currently on pradaxa. 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 patient is unable to describe exacerbating or relieving factors.Unable to obtain history due to patient's mental status. Per ER physician and charts patient is brought to the ER by EMS with concern for stroke. As per verbal report from and EMS, patient last seen normal last night, woke up this morning with left-sided hemiparesis and aphasia. Acute Cerebrovascular accident (CVA) Noncontrast CT scan of the brain suggests subacute left-sided temporoparietal CVA No TPA candidate given wake up with symptoms. In addition, patient not an endovascular candidate given NR greater than 2.. MRI revealed large area of diffusion restriction throughout the right MCA distribution consistent with subacute ischemic infarct . VL carotid Echocardiogram with Ef of 10-15% on 03/27/2017 Started on aspirin and hold Pradaxa for Hypercoagulable state Continue statins Frequent neuro checks. Failed swallow evaluation and placed NG tube for now Neurology consult Supportive care Left-side Hemiparesis Ethology Cerebrovascular Physical /occupational therapy on board Supportive care Acute on chronic systolic Congestive heart failure Recent Echocardiogram Ef of 10-15% on 03/27/2017 Restart on Diuresis, beta blockers and ACEI/ARB Strict I&O's and daily weights Low-sodium/cardiac diet/fluid restriction 1200mL in 24 hours. 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 Hospitalist Physical - Constitutional Vitals: Temp Pulse Resp BP Pulse Ox 98.1 F 97 H 20 120/66 99 03/27/17 04:39 03/27/17 04:39 03/27/17 04:39 03/27/17 04:39 03/27/17 04:39 General appearance: Present: other ( Patient aphasic and does not speak) - EENT Eyes: Present: PERRL ENT: hearing intact - Neck Neck: Present: supple - Respiratory Respiratory: bilateral: CTA - Cardiovascular Rhythm: regular Heart Sounds: Present: S1 & S2 - Extremities Extremity abnormal: other (upper and lower extremity weakness) - Abdominal General gastrointestinal: soft, non-tender - Integumentary Integumentary: Present: clear, warm, dry - Psychiatric Psychiatric: other (impiared judgment) - Neurologic Neurologic: other (can move right lower and upper extremity)) - Allied Health Allied health notes reviewed: nursing Results - Labs CBC & Chem 7: 03/27/17 04:38 03/27/17 04:38 Labs: Laboratory Last Values WBC 5.1 K/mm3 (4.5-11.0) 03/27/17 04:38 RBC 4.37 M/mm3 (3.65-5.03) 03/27/17 04:38 Hgb 12.9 gm/dl (10.1-14.3) 03/27/17 04:38 Hct 38.4 % (30.3-42.9) 03/27/17 04:38 MCV 88 fl (79-97) 03/27/17 04:38 MCH 30 pg (28-32) 03/27/17 04:38 MCHC 34 % (30-34) 03/27/17 04:38 RDW 20.1 % (13.2-15.2) H 03/27/17 04:38 Plt Count 177 K/mm3 (140-440) 03/27/17 04:38 [place] % (Auto) Protective Signal Repairer 03/27/17 04:38 Add Manual Diff Complete 03/27/17 04:38 Total Counted 100 03/27/17 04:38 Seg Neuts % (Manual) 73.0 % (40.0-70.0) H 03/27/17 04:38 Band Neutrophils % 0 % 03/27/17 04:38 Lymphocytes % (Manual) 18.0 % (13.4-35.0) 03/27/17 04:38 Reactive Lymphs % (Man) 2.0 % 03/27/17 04:38 Monocytes % (Manual) 6.0 % (0.0-7.3) 03/27/17 04:38 Eosinophils % (Manual) 1.0 % (0.0-4.3) 03/27/17 04:38 Basophils % (Manual) 0 % (0.0-1.8) 03/27/17 04:38 Metamyelocytes % 0 % 03/27/17 04:38 Myelocytes % 0 % 03/27/17 04:38 Promyelocytes % 0 % 03/27/17 04:38 Blast Cells % 0 % 03/27/17 04:38 Nucleated RBC % Not Reportable 03/27/17 04:38 Seg Neutrophils # Man 3.7 K/mm3 (1.8-7.7) 03/27/17 04:38 Band Neutrophils # 0.0 K/mm3 03/27/17 04:38 Lymphocytes # (Manual) 0.9 K/mm3 (1.2-5.4) L 03/27/17 04:38 Abs React Lymphs (Man) 0.1 K/mm3 03/27/17 04:38 Monocytes # (Manual) 0.3 K/mm3 (0.0-0.8) 03/27/17 04:38 Eosinophils # (Manual) 0.1 K/mm3 (0.0-0.4) 03/27/17 04:38 Basophils # (Manual) 0.0 K/mm3 (0.0-0.1) 03/27/17 04:38 Metamyelocytes # 0.0 K/mm3 03/27/17 04:38 Myelocytes # 0.0 K/mm3 03/27/17 04:38 Promyelocytes # 0.0 K/mm3 03/27/17 04:38 Blast Cells # 0.0 K/mm3 03/27/17 04:38 WBC Morphology Not Reportable 03/27/17 04:38 Hypersegmented Neuts Not Reportable 03/27/17 04:38 Hyposegmented Neuts Not Reportable 03/27/17 04:38 Hypogranular Neuts Not Reportable 03/27/17 04:38 Smudge Cells Not Reportable 03/27/17 04:38 Toxic Granulation Not Reportable 03/27/17 04:38 Toxic Vacuolation Not Reportable 03/27/17 04:38 Dohle Bodies Not Reportable 03/27/17 04:38 Pelger-Huet Anomaly Not Reportable 03/27/17 04:38 Kristin Rods Not Reportable 03/27/17 04:38 Platelet Estimate Consistent w auto 03/27/17 04:38 Clumped Platelets Not Reportable 03/27/17 04:38 Plt Clumps, EDTA Not Reportable 03/27/17 04:38 Large Platelets Few 03/27/17 04:38 Giant Platelets Not Reportable 03/27/17 04:38 Platelet Satelliting Not Reportable 03/27/17 04:38 Plt Morphology Comment Not Reportable 03/27/17 04:38 RBC Morphology Not Reportable 03/27/17 04:38 Dimorphic RBCs Not Reportable 03/27/17 04:38 Polychromasia Not Reportable 03/27/17 04:38 Hypochromasia 1+ 03/27/17 04:38 Poikilocytosis Not Reportable 03/27/17 04:38 Anisocytosis 1+ 03/27/17 04:38 Microcytosis Not Reportable 03/27/17 04:38 Macrocytosis 1+ 03/27/17 04:38 Spherocytes Not Reportable 03/27/17 04:38 Pappenheimer Bodies Not Reportable 03/27/17 04:38 Sickle Cells Not Reportable 03/27/17 04:38 Target Cells 1+ 03/27/17 04:38 Tear Drop Cells Not Reportable 03/27/17 04:38 Ovalocytes Not Reportable 03/27/17 04:38 Helmet Cells Not Reportable 03/27/17 04:38 [place] Bodies Not Reportable 03/27/17 04:38 [place] Rings Not Reportable 03/27/17 04:38 Lul Cells Not Reportable 03/27/17 04:38 Bite Cells Not Reportable 03/27/17 04:38 Crenated Cell Not Reportable 03/27/17 04:38 Elliptocytes Not Reportable 03/27/17 04:38 Acanthocytes (Spur) Not Reportable 03/27/17 04:38 Rouleaux Not Reportable 03/27/17 04:38 Hemoglobin C Crystals Not Reportable 03/27/17 04:38 Schistocytes Not Reportable 03/27/17 04:38 Malaria parasites Not Reportable 03/27/17 04:38 Wilver Bodies Not Reportable 03/27/17 04:38 Hem Pathologist Commnt No 03/27/17 04:38 PT 22.8 Sec. (12.2-14.9) H 03/27/17 04:38 INR 1.91 (0.87-1.13) H 03/27/17 04:38 APTT 107.4 Sec. (24.2-36.6) H* 03/27/17 04:38 Thrombin Time > 120.0 Sec. (15.1-19.6) H 03/26/17 08:37 Sodium 142 mmol/L (137-145) 03/27/17 04:38 Potassium 3.9 mmol/L (3.6-5.0) 03/27/17 04:38 Chloride 100.0 mmol/L (98-107) 03/27/17 04:38 Carbon Dioxide 27 mmol/L (22-30) 03/27/17 04:38 Anion Gap 19 mmol/L 03/27/17 04:38 BUN 13 mg/dL (7-17) 03/27/17 04:38 Creatinine 1.2 mg/dL (0.7-1.2) 03/27/17 04:38 Estimated GFR 55 ml/min 03/27/17 04:38 BUN/Creatinine Ratio 11 % 03/27/17 04:38 Glucose 120 mg/dL (65-100) H 03/27/17 04:38 POC Glucose 95 (70-105) 03/27/17 11:50 Calcium 8.2 mg/dL (8.4-10.2) L 03/27/17 04:38 Total Bilirubin 0.90 mg/dL (0.1-1.2) 03/27/17 04:38 AST 39 units/L (5-40) 03/27/17 04:38 ALT 30 units/L (7-56) 03/27/17 04:38 Alkaline Phosphatase 118 units/L (35-129) 03/27/17 04:38 Total Creatine Kinase 84 units/L (30-135) 03/27/17 04:38 CK-MB (CK-2) 2.3 ng/mL (0.0-4.0) 03/27/17 04:38 CK-MB (CK-2) Rel Index 2.7 (0-4) 03/27/17 04:38 Troponin T 0.074 ng/mL (0.00-0.029) H D 03/26/17 14:51 NT-Pro-B Natriuret Pep 15629 pg/mL (0-900) H 03/27/17 04:38 Total Protein 6.0 g/dL (6.3-8.2) L 03/27/17 04:38 Albumin 2.3 g/dL (3.9-5) L 03/27/17 04:38 Albumin/Globulin Ratio 0.6 % 03/27/17 04:38 Triglycerides 80 mg/dL (2-149) 03/26/17 07:43 Cholesterol 90 mg/dL (50-199) 03/26/17 07:43 LDL Cholesterol Direct 26 mg/dL (50-130) L 03/26/17 07:43 HDL Cholesterol 48 mg/dL (40-59) 03/26/17 07:43 Cholesterol/HDL Ratio 1.87 % 03/26/17 07:43 Urine Color Red (Yellow) 03/26/17 12:06 Urine Turbidity Clear (Clear) 03/26/17 12:06 Urine pH 7.0 (5.0-7.0) 03/26/17 12:06 Ur Specific [place] 1.010 (1.003-1.030) 03/26/17 12:06 Urine Protein 100 mg/dl mg/dL (Negative) 03/26/17 12:06 Urine Glucose (UA) Neg mg/dL (Negative) 03/26/17 12:06 Urine Ketones Neg mg/dL (Negative) 03/26/17 12:06 Urine Blood Lg (Negative) 03/26/17 12:06 Urine Nitrite Neg (Negative) 03/26/17 12:06 Urine Bilirubin Neg (Negative) 03/26/17 12:06 Urine Urobilinogen < 2.0 mg/dL (<2.0) 03/26/17 12:06 Ur Leukocyte Esterase Sm (Negative) 03/26/17 12:06 Urine WBC (Auto) > 182.0 /HPF (0.0-6.0) H 03/26/17 12:06 Urine RBC (Auto) > 182.0 /HPF (0.0-6.0) 03/26/17 12:06 U Epithel Cells (Auto) 11.0 /HPF (0-13.0) 03/26/17 12:06 Urine Bacteria (Auto) 1+ /HPF (Negative) 03/26/17 12:06
--- NOTE | 2017-03-27 15:20 | Event Note ---
Date: 03/27/17 Detailed cardiology consultation dictated. Pt is followed by [facility] cardiology. Pt recently discharged from [place] on 03/25/2017 following tx for HF. A: #1: Acute CVA #3: Acute combined systolic and diastolic HF #4: NSTEMI type II - troponins trending down; ECG with NAF #5: Dilated CMP - EF 10-15%; no thrombus visualized on current echo. #6: H/O LV thrombus (diagnosed 07/2016) - has been on Pradaxa #7: CAD, s/p STEMI with PCI of LAD which was 100% occluded, 90% circ, 40% RCA, EF 40% - [place] [facility] [place] #8: CKD #9: Hypercoagulability - INR 2.21 on admission #10: H/o CVA with residual right sided weakness and aphasia #11: DM #12: Accelerated HTN #13: h/o noncompliance due to financial difficulties P: Cont ASA, statin, BB, ACEI, nitrates, IV diuretics. Hold Pradaxa in setting of recent CVA and elevated INR. Await neuro consultation. Dimple PARIS NP / DR. MATAMOROS
[2017-03-27 16:35] VITALS: BP 149/91
--- NOTE | 2017-03-27 17:25 | Consultation ---
History of Present Illness - Reason for Consult Consult date: 03/27/17 stroke - History of Present Illness spoke with Dr. Patel and exam shows lefts ided weakness that is very severe gaze to the right and will not look to the left side.... she is chronically aphasic and not speaking but very lert.... no seizures at present and very much slow to respond the CT/ MRI/ECHO were all reviewed and there are major issues with left and right heart failure as well as valvve dysfunction on the HILDA the pattern of old and new infarcts is considerable.... especially in the new infarct right MCA proxinal due to embolus there is old infarct in the left hemisphere two by my count both appear to be embolic she was recently discharged from [facility] for heart failure in my view needs more effective anticoagulation on transfer back to [facility] Past History Past Medical History: heart failure, hypertension, hyperlipidemia Past Surgical History: Other (unable to assess due to patient mental status) Social history: other (unable to assess due to patient mental status) Family history: other (unable to assess due to patient mental status) Medications and Allergies Allergies Allergy/AdvReac Type Severity Reaction Status Date / Time No Known Allergies Allergy Verified 03/26/17 07:39 Home Medications Medication Instructions Recorded Confirmed Last Taken Type AtorvaSTATin [Lipitor] 80 mg PO QHS 03/26/17 03/26/17 Unknown History Dabigatran [Pradaxa] 150 mg PO BID 03/26/17 03/26/17 Unknown History ISOSORBIDE MONOnitrate [Imdur ER] 60 mg PO QDAY 03/26/17 03/26/17 Unknown History Lisinopril [Zestril] 5 mg PO QDAY 03/26/17 03/26/17 Unknown History Metoprolol [Lopressor] 25 mg PO DAILY 03/26/17 03/26/17 Unknown History Potassium Chloride [K-Dur] 20 meq PO QDAY 03/26/17 03/26/17 Unknown History Torsemide [Demadex] 20 mg PO DAILY 03/26/17 03/26/17 Unknown History hydrALAZINE [Apresoline] 25 mg PO BID 03/26/17 03/26/17 Unknown History Active Meds: Active Medications Acetaminophen (Tylenol) 650 mg PO Q4H PRN PRN Reason: Pain MILD(1-3)/Fever >100.5/BURGESS Aspirin (Aspirin) 300 mg KS QDAY KARLENE Atorvastatin Calcium (Lipitor) 80 mg PO QHS [facility] Last Admin: 03/26/17 21:02 Dose: Not Given Bisacodyl (Dulcolax) 10 mg KS QDAY PRN PRN Reason: Constipation unrelieved by MOM Dextrose (D50w (25gm) Syringe) 25 ml IV PRN PRN PRN Reason: Hypoglycemia Furosemide (Lasix) 20 mg IV QDAY [facility] Levofloxacin/Dextrose (Levaquin 750mg/150ml) 750 mg in 150 mls @ 100 mls/hr IV Q48H KARLENE PRN Reason: Protocol Last Admin: 03/26/17 14:56 Dose: 100 mls/hr Dextrose/Sodium Chloride (D5ns) 1,000 mls @ 75 mls/hr IV DIRECT KARLENE Last Admin: 03/27/17 05:57 Dose: 75 mls/hr Lisinopril (Zestril) 5 mg PO QDAY [facility] Magnesium Hydroxide (Milk Of Magnesia) 30 ml PO Q4H PRN PRN Reason: Constipation Metoclopramide HCl (Reglan) 5 mg PO Q6H PRN PRN Reason: Nausea And Vomiting Metoprolol Succinate (Toprol Xl) 25 mg PO QDAY [facility] Nitroglycerin (Nitro-Bid 2%) 1 inch TP BIDNTG [facility] PRN Reason: Protocol Ondansetron HCl (Zofran) 4 mg IV Q8H PRN PRN Reason: N/V unrelieved by Reglan Potassium Chloride (K-Dur) 20 meq PO QDAY [facility] Promethazine HCl (Phenergan) 25 mg KS Q6H PRN PRN Reason: Nausea And Vomiting Sodium Chloride (Sodium Chloride Flush Syringe 10 Ml) 10 ml IV PRN PRN PRN Reason: LINE FLUSH Exam - Constitutional Vitals: Temp Pulse Resp BP Pulse Ox 99.3 F 50 L 20 149/91 94 03/27/17 16:33 03/27/17 16:33 03/27/17 16:33 03/27/17 16:33 03/27/17 16:33 Results - Labs CBC & Chem 7: 03/27/17 04:38 03/27/17 04:38 Labs: Abnormal lab results 03/26/17 03/26/17 03/27/17 Range/Units 20:35 21:30 04:38 RDW 20.1 H (13.2-15.2) % Seg Neuts % (Manual) 73.0 H (40.0-70.0) % Lymphocytes # (Manual) 0.9 L (1.2-5.4) K/mm3 PT (12.2-14.9) Sec. INR (0.87-1.13) APTT (24.2-36.6) Sec. Glucose (65-100) mg/dL POC Glucose 66 L 130 H (70-105) Calcium (8.4-10.2) mg/dL NT-Pro-B Natriuret Pep (0-900) pg/mL Total Protein (6.3-8.2) g/dL Albumin (3.9-5) g/dL 03/27/17 03/27/17 03/27/17 Range/Units 04:38 04:38 04:38 RDW (13.2-15.2) % Seg Neuts % (Manual) (40.0-70.0) % Lymphocytes # (Manual) (1.2-5.4) K/mm3 PT 22.8 H (12.2-14.9) Sec. INR 1.91 H (0.87-1.13) APTT 107.4 H* (24.2-36.6) Sec. Glucose 120 H (65-100) mg/dL POC Glucose (70-105) Calcium 8.2 L (8.4-10.2) mg/dL NT-Pro-B Natriuret Pep 55539 H (0-900) pg/mL Total Protein 6.0 L (6.3-8.2) g/dL Albumin 2.3 L (3.9-5) g/dL 03/27/17 03/27/17 Range/Units 07:32 15:23 RDW (13.2-15.2) % Seg Neuts % (Manual) (40.0-70.0) % Lymphocytes # (Manual) (1.2-5.4) K/mm3 PT (12.2-14.9) Sec. INR (0.87-1.13) APTT (24.2-36.6) Sec. Glucose (65-100) mg/dL POC Glucose 113 H 116 H (70-105) Calcium (8.4-10.2) mg/dL NT-Pro-B Natriuret Pep (0-900) pg/mL Total Protein (6.3-8.2) g/dL Albumin (3.9-5) g/dL
--- NOTE | 2017-03-27 17:26 | Discharge Summary ---
<LEE FOSTER - Last Filed: 03/27/17 17:23> Providers - Providers Date of Admission: 03/26/17 10:35 Date of discharge: 03/27/17 Attending physician: LEE FOSTER 03/26/17 10:42 Consult to Case Management [CONS] Routine Services Needed at Discharge: Physical Therapy Occupational Therapy Other Notified:: correctional case managermedical affairs manager Therapy Evaluate and Treat [CONS] Routine Comment: Reason For Exam: Neuro deficits Physical Therapy Evaluation and Treat [CONS] Routine Comment: Reason For Exam: Neuro deficits 03/26/17 10:49 Speech Therapy Evaluation and Treat [CONS] Routine Reason For Exam: swallow eval 03/26/17 13:44 Consult to Case Management [CONS] Routine Services Needed at Discharge: Hand Wrapper Operator Notified:: correctional case managermedical affairs manager Therapy Evaluate and Treat [CONS] Routine Comment: Reason For Exam: Neuro deficits Physical Therapy Evaluation and Treat [CONS] Routine Comment: Reason For Exam: Neuro deficits 03/26/17 17:22 Consult to Physician [CONS] Routine Consulting Provider: LETA BELTRAN Reason For Exam: CVA Place consult to:: yes Notified:: y Phone number called:: yes 03/27/17 11:33 Consult to Physician [CONS] Routine Consulting Provider: SHIRA HOLLINS Reason For Exam: elevated troponin Place consult to:: hubert Notified:: yes If yes, spoke with:: fartun Time called:: 13:20 03/27/17 15:53 Consult to Dietitian/Nutrition [CONS] Routine Physician Instructions: Reason For Exam: Reason for Consult: Write/Manage Tube Feeding Hospitalization Condition: Fair Disposition: DC/TX-70 ANOTHER TYPE HLTHCARE Exam - Constitutional Vitals: Temp Pulse Resp BP Pulse Ox 99.3 F 50 L 20 149/91 94 03/27/17 16:33 03/27/17 16:33 03/27/17 16:33 03/27/17 16:33 03/27/17 16:33 Plan Activity: other (bedrest) Diet: per dietitian instruction Follow up with: HILARIO LOPEZ [Other] - 3-5 Days <VI GOMEZ - Last Filed: 03/27/17 21:25> Providers - Providers Date of Admission: 03/26/17 10:35 Attending physician: LEE FOSTER 03/26/17 10:42 Consult to Case Management [CONS] Routine Services Needed at Discharge: Physical Therapy Occupational Therapy Other Notified:: correctional case managermedical affairs manager Therapy Evaluate and Treat [CONS] Routine Comment: Reason For Exam: Neuro deficits Physical Therapy Evaluation and Treat [CONS] Routine Comment: Reason For Exam: Neuro deficits 03/26/17 10:49 Speech Therapy Evaluation and Treat [CONS] Routine Reason For Exam: swallow eval 03/26/17 13:44 Consult to Case Management [CONS] Routine Services Needed at Discharge: Hand Wrapper Operator Notified:: correctional case managermedical affairs manager Therapy Evaluate and Treat [CONS] Routine Comment: Reason For Exam: Neuro deficits Physical Therapy Evaluation and Treat [CONS] Routine Comment: Reason For Exam: Neuro deficits 03/26/17 17:22 Consult to Physician [CONS] Routine Consulting Provider: LETA BELTRAN Reason For Exam: CVA Place consult to:: yes Notified:: y Phone number called:: yes 03/27/17 11:33 Consult to Physician [CONS] Routine Consulting Provider: SHIRA HOLLINS Reason For Exam: elevated troponin Place consult to:: hubert Notified:: yes If yes, spoke with:: fartun Time called:: 13:20 03/27/17 15:53 Consult to Dietitian/Nutrition [CONS] Routine Physician Instructions: Reason For Exam: Reason for Consult: Write/Manage Tube Feeding Exam - Constitutional Vitals: Temp Pulse Resp BP Pulse Ox 99.3 F 50 L 20 149/91 94 03/27/17 16:33 03/27/17 16:33 03/27/17 16:33 03/27/17 16:33 03/27/17 16:33
--- NOTE | 2017-03-27 17:28 | Consultation ---
History of Present Illness - Reason for Consult Consult date: 03/27/17 neuro - History of Present Illness since patient going back to [place] I would perfer they decide on the pradaxa question noted INR is 2.2 in past did have documented ventricular thrombus Past History Past Medical History: heart failure, hypertension, hyperlipidemia Past Surgical History: Other (unable to assess due to patient mental status) Social history: other (unable to assess due to patient mental status) Family history: other (unable to assess due to patient mental status) Medications and Allergies Allergies Allergy/AdvReac Type Severity Reaction Status Date / Time No Known Allergies Allergy Verified 03/26/17 07:39 Home Medications Medication Instructions Recorded Confirmed Last Taken Type AtorvaSTATin [Lipitor] 80 mg PO QHS 03/26/17 03/26/17 Unknown History Dabigatran [Pradaxa] 150 mg PO BID 03/26/17 03/26/17 Unknown History ISOSORBIDE MONOnitrate [Imdur ER] 60 mg PO QDAY 03/26/17 03/26/17 Unknown History Lisinopril [Zestril] 5 mg PO QDAY 03/26/17 03/26/17 Unknown History Metoprolol [Lopressor] 25 mg PO DAILY 03/26/17 03/26/17 Unknown History Potassium Chloride [K-Dur] 20 meq PO QDAY 03/26/17 03/26/17 Unknown History Torsemide [Demadex] 20 mg PO DAILY 03/26/17 03/26/17 Unknown History hydrALAZINE [Apresoline] 25 mg PO BID 03/26/17 03/26/17 Unknown History Aspirin [Aspirin SUPPOS] 300 mg AZ QDAY supp.rect 03/27/17 Unknown Rx D5w/0.9% NaCl [D5ns] 50 ml IV DIRECT #1 bag 03/27/17 Unknown Rx Lisinopril [Zestril TAB] 5 mg PO QDAY tablet 03/27/17 Unknown Rx Metoprolol Xl [Metoprolol 25 mg PO QDAY tablet 03/27/17 Unknown Rx SUCCINATE ER TAB] Active Meds: Active Medications Acetaminophen (Tylenol) 650 mg PO Q4H PRN PRN Reason: Pain MILD(1-3)/Fever >100.5/BURGESS Aspirin (Aspirin) 300 mg AZ QDAY KARLENE Atorvastatin Calcium (Lipitor) 80 mg PO QHS [facility] Last Admin: 03/26/17 21:02 Dose: Not Given Bisacodyl (Dulcolax) 10 mg AZ QDAY PRN PRN Reason: Constipation unrelieved by MOM Dextrose (D50w (25gm) Syringe) 25 ml IV PRN PRN PRN Reason: Hypoglycemia Furosemide (Lasix) 20 mg IV QDAY [facility] Levofloxacin/Dextrose (Levaquin 750mg/150ml) 750 mg in 150 mls @ 100 mls/hr IV Q48H KARLENE PRN Reason: Protocol Last Admin: 03/26/17 14:56 Dose: 100 mls/hr Dextrose/Sodium Chloride (D5ns) 1,000 mls @ 75 mls/hr IV DIRECT KARLENE Last Admin: 03/27/17 05:57 Dose: 75 mls/hr Lisinopril (Zestril) 5 mg PO QDAY [facility] Magnesium Hydroxide (Milk Of Magnesia) 30 ml PO Q4H PRN PRN Reason: Constipation Metoclopramide HCl (Reglan) 5 mg PO Q6H PRN PRN Reason: Nausea And Vomiting Metoprolol Succinate (Toprol Xl) 25 mg PO QDAY [facility] Nitroglycerin (Nitro-Bid 2%) 1 inch TP BIDNTG KARLENE PRN Reason: Protocol Ondansetron HCl (Zofran) 4 mg IV Q8H PRN PRN Reason: N/V unrelieved by Reglan Potassium Chloride (K-Dur) 20 meq PO QDAY [facility] Promethazine HCl (Phenergan) 25 mg AZ Q6H PRN PRN Reason: Nausea And Vomiting Sodium Chloride (Sodium Chloride Flush Syringe 10 Ml) 10 ml IV PRN PRN PRN Reason: LINE FLUSH Exam - Constitutional Vitals: Temp Pulse Resp BP Pulse Ox 99.3 F 50 L 20 149/91 94 03/27/17 16:33 03/27/17 16:33 03/27/17 16:33 03/27/17 16:33 03/27/17 16:33 Results - Labs CBC & Chem 7: 03/27/17 04:38 03/27/17 04:38 Labs: Abnormal lab results 03/26/17 03/26/17 03/27/17 Range/Units 20:35 21:30 04:38 RDW 20.1 H (13.2-15.2) % Seg Neuts % (Manual) 73.0 H (40.0-70.0) % Lymphocytes # (Manual) 0.9 L (1.2-5.4) K/mm3 PT (12.2-14.9) Sec. INR (0.87-1.13) APTT (24.2-36.6) Sec. Glucose (65-100) mg/dL POC Glucose 66 L 130 H (70-105) Calcium (8.4-10.2) mg/dL NT-Pro-B Natriuret Pep (0-900) pg/mL Total Protein (6.3-8.2) g/dL Albumin (3.9-5) g/dL 03/27/17 03/27/17 03/27/17 Range/Units 04:38 04:38 04:38 RDW (13.2-15.2) % Seg Neuts % (Manual) (40.0-70.0) % Lymphocytes # (Manual) (1.2-5.4) K/mm3 PT 22.8 H (12.2-14.9) Sec. INR 1.91 H (0.87-1.13) APTT 107.4 H* (24.2-36.6) Sec. Glucose 120 H (65-100) mg/dL POC Glucose (70-105) Calcium 8.2 L (8.4-10.2) mg/dL NT-Pro-B Natriuret Pep 66204 H (0-900) pg/mL Total Protein 6.0 L (6.3-8.2) g/dL Albumin 2.3 L (3.9-5) g/dL 03/27/17 03/27/17 Range/Units 07:32 15:23 RDW (13.2-15.2) % Seg Neuts % (Manual) (40.0-70.0) % Lymphocytes # (Manual) (1.2-5.4) K/mm3 PT (12.2-14.9) Sec. INR (0.87-1.13) APTT (24.2-36.6) Sec. Glucose (65-100) mg/dL POC Glucose 113 H 116 H (70-105) Calcium (8.4-10.2) mg/dL NT-Pro-B Natriuret Pep (0-900) pg/mL Total Protein (6.3-8.2) g/dL Albumin (3.9-5) g/dL
--- NOTE | 2017-03-27 21:34 | Discharge Summary ---
Providers - Providers Date of Admission: 03/26/17 10:35 Date of discharge: 03/27/17 Attending physician: LEE FOSTER 03/26/17 10:42 Consult to Case Management [CONS] Routine Services Needed at Discharge: Physical Therapy Occupational Therapy Other Notified:: piano case and bench assemblerclinical research manager Therapy Evaluate and Treat [CONS] Routine Comment: Reason For Exam: Neuro deficits Physical Therapy Evaluation and Treat [CONS] Routine Comment: Reason For Exam: Neuro deficits 03/26/17 10:49 Speech Therapy Evaluation and Treat [CONS] Routine Reason For Exam: swallow eval 03/26/17 13:44 Consult to Case Management [CONS] Routine Services Needed at Discharge: Certified Juvenile Probation Officer Notified:: piano case and bench assemblerclinical research manager Therapy Evaluate and Treat [CONS] Routine Comment: Reason For Exam: Neuro deficits Physical Therapy Evaluation and Treat [CONS] Routine Comment: Reason For Exam: Neuro deficits 03/26/17 17:22 Consult to Physician [CONS] Routine Consulting Provider: LETA BELTRAN Reason For Exam: CVA Place consult to:: nikki Notified:: y Phone number called:: yes 03/27/17 11:33 Consult to Physician [CONS] Routine Consulting Provider: SHIRA HOLLINS Reason For Exam: elevated troponin Place consult to:: hubert Notified:: yes If yes, spoke with:: fartun Time called:: 13:20 03/27/17 15:53 Consult to Dietitian/Nutrition [CONS] Routine Physician Instructions: Reason For Exam: Reason for Consult: Write/Manage Tube Feeding Hospitalization Reason for admission: CVA Condition: Fair Hospital course: Patient is a 61 years old female with past medical history hypertension, CHF, hypertension, hyperlipidemia and stroke, residual right-sided weakness, currently on pradaxa. Patient primary care physician is with the [facility]. [facility] does not have beds available at any of their facilities yesterday. [place]/ Dr Allen has authorized the patient to be admitted to [facility]. Patient currently stares off and aphasic and does not speak, but is able to follow commands such as hand business operations coordinator. patient is unable to describe exacerbating or relieving factors. Per ER physician and charts patient is brought to the ER by EMS with concern for stroke. As per verbal report from and EMS, patient last seen normal last night, woke up this morning with left-sided hemiparesis and aphasia. Patient diagnosed with Acute Cerebrovascular accident ( CVA), Left-side Hemiparesis, Acute on chronic systolic Congestive heart failure , Hypertensive urgency/emergency, Urinary tract infection,Hypercoagulable state and Suspected pneumonia. MRI revealed large area of diffusion restriction throughout the right MCA distribution consistent with subacute ischemic infarct. Non contrast CT scan of the brain suggests subacute left-sided temporoparietal CVA. No TPA candidate given wake up with symptoms. In addition, patient not an endovascular candidate given NR greater than 2. Echocardiogram with Ef of 10-15%. VL carotid WNL. Chest xray shows pleural effusion. She was treated with ASA, Statins, Diuresis, beta blockers and ACEI/ARB and IV antibiotics. Hold Pradaxa due to Hypercoagulable state. Patient failed swallow evaluation and placed on NG tube. Yovana co-managed with Neurology.Patient clinically improved and stable for transfer. She is being transferred to [facility] per patient insurance request. Discharged diagnosed Acute Cerebrovascular accident (CVA) Left-side Hemiparesis Acute on chronic systolic Congestive heart failure Hypertensive urgency/emergency Urinary tract infection Hypercoagulable state Disposition: DC/TX-70 ANOTHER TYPE HLTHCARE Time spent for discharge: 37 minutes Core Measure Documentation - Palliative Care Palliative Care/ Comfort Measures: Not Applicable - Core Measures Any of the following diagnoses?: stroke - Stroke Discharge Requirements Statin for LDL = or >70 mg/dl on DC: Yes Anticoag for atrial fib/atrial flutter: Not Applicable (INR 2.4) Antithrombotic for ischemic stroke: No Reason for no antithrombotic on DC: Medical Contraindication (INR>2) Exam - Constitutional Vitals: Temp Pulse Resp BP Pulse Ox 99.3 F 50 L 20 149/91 94 03/27/17 16:33 03/27/17 16:33 03/27/17 16:33 03/27/17 16:33 03/27/17 16:33 General appearance: Present: other (Weak/Paralyzed One Side, Unable to Speak Clearly) - EENT Eyes: Present: PERRL (patient moves eyes to the right, but will not follow commands to move ice to the left)) ENT: hearing intact - Neck Neck: Present: supple - Respiratory Respiratory effort: normal Respiratory: bilateral: CTA - Cardiovascular Rhythm: regular Heart Sounds: Present: S1 & S2 - Extremities Extremities: abnormal (Weak/Paralyzed on left-side) - Abdominal General gastrointestinal: Present: soft, non-tender Female genitourinary: Present: deferred - Rectal Rectal Exam: deferred - Integumentary Integumentary: Present: clear, warm, dry - Musculoskeletal Musculoskeletal: left sided weakness - Psychiatric Psychiatric: other (impaired judgment) - Neurologic Neurologic: focal deficits, other (Moves right upper and lower extremities) - Allied Health Allied health notes reviewed: nursing Plan Activity: fall precautions Diet: low fat, low cholesterol, low salt Follow up with: HILARIO LOPEZ [Other] - 3-5 Days
[2017-03-28] MEDS ORDERED: NITRO-BID 2% TP SCH (06:00)
[2017-03-28] MEDS ORDERED: ZESTRIL PO SCH (10:00)
[2017-03-28] MEDS ORDERED: LASIX IV SCH (10:00)
[2017-03-28] MEDS ORDERED: IMDUR PO SCH (10:00)
[2017-03-28] MEDS ORDERED: ASPIRIN PR SCH (10:00)
[2017-03-28] MEDS ORDERED: TOPROL XL PO SCH (10:00)
--- NOTE | 2017-03-28 15:46 | Consultation ---
DATE OF SERVICE: 03/27/2017 Consultation is requested by Dr. Veronica Patel. CONSULTING PHYSICIAN: Dr. Jeremie Torres. HISTORY OF PRESENT ILLNESS: This is a 61-year-old female, who was admitted to the hospital on 03/26/2017 with history of sudden onset of weakness of the left upper and lower extremities as well as aphasia for further evaluation and management. History is now primarily obtained from the review of records. Family is not available at this time. The patient is also not able to give any history because of the aphasia. The patient was recently admitted to [facility] and was discharged only on 03/25/2017. At the time of discharge, the patient was doing well, although she has prior history of cerebrovascular accident and right hemiparesis. According to the at the time of admission, he told the ER physician that the patient went to bed normally, but in the morning, they found that she was not able to talk and she has weakness on the left upper and lower extremities, so EMS was called and the patient was brought to the Emergency Room. Workup revealed cerebrovascular accident with facial left hemiparesis. The patient is known to have coronary artery disease and has had coronary angioplasty with stent placement and she is also known to have ischemic cardiomyopathy with a history of congestive heart failure, hence cardiac evaluation is requested. At this time, the patient does not appear to be in any acute distress. PAST MEDICAL HISTORY: Includes history of cerebrovascular accident with right hemiparesis, history of coronary artery disease with ST elevation myocardial infarction and PCI of the left anterior descending artery, which was 100% occluded in 07/2016. At that time, the patient also had a 40% right coronary artery lesion. Ejection fraction then was 40%. The patient has history of hypertension, diabetes mellitus, hyperlipidemia, chronic kidney disease. The patient was noted to have dilated cardiomyopathy with ejection fraction of 20% during her most recent admission. The patient apparently had mural thrombus at the time of cerebrovascular accident and so was placed on anticoagulation. FAMILY HISTORY: Unremarkable. SOCIAL HISTORY: The patient is unable to give any history at this time. She is a nonsmoker, nonalcoholic currently. REVIEW OF SYSTEMS: Could not be obtained. ALLERGIES: None known to medications. MEDICATIONS: The patient was on Imdur 60 mg daily, lisinopril 5 mg daily, metoprolol 25 mg daily, KCl 20 mEq daily, torsemide 20 mg daily, hydralazine 25 mg b.i.d., aspirin 81 mg daily, simvastatin 20 mg daily, atorvastatin 80 mg daily. PHYSICAL EXAMINATION: GENERAL: This is a 61-year-old female, well built, well nourished, no acute distress at the present time. The patient is aphasic, unable to give any history. SKIN: Warm and dry. HEENT: Pupils reacting. NECK: Supple. Both carotids well palpable. Faint bilateral carotid bruit noted. No JVD. CHEST: Breath sounds are heard equally well on both sides. No rales or rhonchi. HEART: S1, S2 heard well. She does have a grade 2/6 systolic murmur best heard at the aortic area and left sternal border. No diastolic murmur. No gallop rhythm. ABDOMEN: Soft, nontender. Liver and spleen not palpable. Bowel sounds well heard normally. EXTREMITIES: No edema, no calf tenderness. Good pedal pulses. NEUROLOGICAL: Evaluation revealed left-sided weakness. The patient also has some weakness on the right side. She is aphasic. RECTAL: Not done at this time. PELVIC: Not done at this time. LABORATORY DATA: The patient's hemoglobin was 12.8, hematocrit 38.8. BUN was 13 and creatinine 1.2. Sugar was 120. DIAGNOSTIC DATA: The patient's CT scan of the head suggests subacute left-sided temporoparietal cerebrovascular accident. IMPRESSION: 1. Acute cerebrovascular accident, left sided, with left hemiparesis and aphasia. 2. Buvjv-do-gmyifob systolic heart failure. 3. Accelerated hypertension. 4. History of diabetes mellitus. 5. History of coronary artery disease, status post coronary angioplasty with a stent placement of the left anterior descending in 07/2016. 6. Ischemic cardiomyopathy with ejection fraction of 10% to 15%. 7. History of mural thrombus. PLAN: At this time, the patient's cardiovascular ____ appears stable. Agree with the present management. Monitor the blood pressure and continue medications, keep it under control. Resume medications to treat congestive heart failure and monitor the renal function and potassium closely. I reviewed the echocardiogram. Ejection fraction is down to 10% to 15%. The patient has severe tricuspid regurgitation and moderate mitral regurgitation, but I do not see any definite mural thrombus on the echocardiogram at this time. So, the exact etiology of cerebrovascular accident is unclear. The patient was on anticoagulation. Agree with obtaining carotid studies. Monitor the rhythm closely. Rest of the plan as per orders. Thank you very much for this consultation. We will follow the patient along with you. JOB# [id number] SKYLA/NICHOLE
== END 2017-03-27 17:53 | disposition other institution (70) | DRG 64 ==
LOC: ED 07:38 → 4A 10:35
PROVIDERS: ADMIT Internal Medicine; ATTEND Internal Medicine
DX: I63.9 Cerebral infarction, unspecified (principal); I50.23 Acute on chronic systolic (congestive) heart failure; G81.94 Hemiplegia, unspecified affecting left nondominant side; I16.1 Hypertensive emergency; I11.0 Hypertensive heart disease with heart failure; N39.0 Urinary tract infection, site not specified; D68.59 Other primary thrombophilia; I16.0 Hypertensive urgency; E78.5 Hyperlipidemia, unspecified; I25.5 Ischemic cardiomyopathy; E11.9 Type 2 diabetes mellitus without complications; I25.10 Atherosclerotic heart disease of native coronary artery without angina pectoris; Z98.61 Coronary angioplasty status
CPT/HCPCS: 36415; 70450; 70551; 71010; 80048; 80053; 80061; 81001; 82550; 82553; 82962; 83880; 84484; 85007; 85025; 85610; 85670; 85730; 87086; 93005; 93010; 93306; 93880; 96374; 99285; J1940; J1956; J7042

== ENCOUNTER 2017-07-20 13:57 | Inpatient (IN) | payer MEDICAID, OTHER ==
[2017-07-20 15:10] LABS: Basophils % (Auto) 0.3 % (0.0-1.8); Eosinophils % (Auto) 0.6 % (0.0-4.3); Hemoglobin 12.6 gm/dl (10.1-14.3); Lymphocytes # (Auto) 0.3 K/mm3 (1.2-5.4); Lymphocytes % (Auto) 5.1 % (13.4-35.0); Mean Corpuscular HGB Conc 33 % (30-34); Mean Corpuscular Hemoglobin 29 pg (28-32); Mean Corpuscular Volume 87 fl (79-97); Monocytes # (Auto) 0.9 K/mm3 (0.0-0.8); Monocytes % (Auto) 15.4 % (0.0-7.3); Platelet Count 172 K/mm3 (140-440); Red Blood Count 4.38 M/mm3 (3.65-5.03); Red Cell Distribution Width 17.3 % (13.2-15.2)
[2017-07-20 15:21] LABS: Calcium 9.2 mg/dL (8.4-10.2)
[2017-07-20] MEDS ORDERED: NACL 0.9% 1000 ML 1,000 ML IV ONE (15:29)
--- NOTE | 2017-07-20 15:46 | Emergency Department Report ---
- General Chief complaint: Weakness Stated complaint: GENERAL WEAKNESS Time Seen by Provider: 07/20/17 14:46 Source: patient, EMS Mode of arrival: Stretcher Limitations: Physical Limitation - History of Present Illness Initial comments: Patient is a 61-year-old [place] female past medical history of stroke with residual dyphasia and dysphagia and left sided residual weakness who is ambulatory now at baseline who is presenting with weakness. Patient's states that starting yesterday she was unable to stand on her own and he noticed that she was generally weak. Patient is getting tube feeds because of dysphagia. Patient's states that he doesn't think that she is getting a note nutrients at this time. Patient was weak and dizzy upon standing today and fell backwards. Patient states she has had a dry mouth he denies any nausea vomiting diarrhea fevers or chills. Patient's states that her weakness in her arms and legs relatively at baseline but she is unable to walk without assistance - Related Data Home Medications Medication Instructions Recorded Confirmed Last Taken AtorvaSTATin [Lipitor] 80 mg PO QHS 03/26/17 03/26/17 Unknown Dabigatran [Pradaxa] 150 mg PO BID 03/26/17 03/26/17 Unknown ISOSORBIDE MONOnitrate [Imdur ER] 60 mg PO QDAY 03/26/17 03/26/17 Unknown Lisinopril [Zestril] 5 mg PO QDAY 03/26/17 03/26/17 Unknown Metoprolol [Lopressor] 25 mg PO DAILY 03/26/17 03/26/17 Unknown Potassium Chloride [K-Dur] 20 meq PO QDAY 03/26/17 03/26/17 Unknown Torsemide [Demadex] 20 mg PO DAILY 03/26/17 03/26/17 Unknown hydrALAZINE [Apresoline] 25 mg PO BID 03/26/17 03/26/17 Unknown Previous Rx's Medication Instructions Recorded Last Taken Type Aspirin [Aspirin SUPPOS] 300 mg MS QDAY supp.rect 03/27/17 Unknown Rx D5w/0.9% NaCl [D5ns] 50 ml IV DIRECT #1 bag 03/27/17 Unknown Rx Lisinopril [Zestril TAB] 5 mg PO QDAY tablet 03/27/17 Unknown Rx Metoprolol Xl [Metoprolol 25 mg PO QDAY tablet 03/27/17 Unknown Rx SUCCINATE ER TAB] Allergies Allergy/AdvReac Type Severity Reaction Status Date / Time No Known Allergies Allergy Verified 03/26/17 07:39 ED Review of Systems ROS: Stated complaint: GENERAL WEAKNESS Other details as noted in HPI Comment: All other systems reviewed and negative Constitutional: denies: chills, fever Eyes: denies: eye pain, eye discharge, vision change ENT: denies: ear pain, throat pain Respiratory: denies: cough, shortness of breath, wheezing Cardiovascular: denies: chest pain, palpitations Endocrine: no symptoms reported Gastrointestinal: denies: abdominal pain, nausea, diarrhea Genitourinary: denies: urgency, dysuria, discharge Musculoskeletal: denies: back pain, joint swelling, arthralgia Skin: denies: rash, lesions Neurological: denies: headache, weakness, paresthesias Psychiatric: denies: anxiety, depression Hematological/Lymphatic: denies: easy bleeding, easy bruising ED Past Medical Hx - Past Medical History Previous Medical History?: Yes Hx Hypertension: Yes Hx CVA: Yes (x 2 (last one in 03/2017); dysphasia, G-tube) Hx Heart Attack/AMI: Yes (07/2016) Hx Congestive Heart Failure: Yes Hx Diabetes: Yes Hx Deep Vein Thrombosis: Yes Hx Pulmonary Embolism: No Hx GERD: No Hx Liver Disease: No Hx Renal Disease: No Hx Sickle Cell Disease: No Hx Arthritis: No Hx Headaches / Migraines: No Hx Seizures: No Hx Kidney Stones: No Hx Psychiatric Treatment: No Hx Asthma: No Hx COPD: No Hx Tuberculosis: No Hx HIV: No - Surgical History Hx Open Heart Surgery: No (arterial stent) - Social History Smoking Status: Former Smoker - Medications Home Medications: Home Medications Medication Instructions Recorded Confirmed Last Taken Type AtorvaSTATin [Lipitor] 80 mg PO QHS 03/26/17 03/26/17 Unknown History Dabigatran [Pradaxa] 150 mg PO BID 03/26/17 03/26/17 Unknown History ISOSORBIDE MONOnitrate [Imdur ER] 60 mg PO QDAY 03/26/17 03/26/17 Unknown History Lisinopril [Zestril] 5 mg PO QDAY 03/26/17 03/26/17 Unknown History Metoprolol [Lopressor] 25 mg PO DAILY 03/26/17 03/26/17 Unknown History Potassium Chloride [K-Dur] 20 meq PO QDAY 03/26/17 03/26/17 Unknown History Torsemide [Demadex] 20 mg PO DAILY 03/26/17 03/26/17 Unknown History hydrALAZINE [Apresoline] 25 mg PO BID 03/26/17 03/26/17 Unknown History Aspirin [Aspirin SUPPOS] 300 mg MS QDAY supp.rect 03/27/17 Unknown Rx D5w/0.9% NaCl [D5ns] 50 ml IV DIRECT #1 bag 03/27/17 Unknown Rx Lisinopril [Zestril TAB] 5 mg PO QDAY tablet 03/27/17 Unknown Rx Metoprolol Xl [Metoprolol 25 mg PO QDAY tablet 03/27/17 Unknown Rx SUCCINATE ER TAB] ED Physical Exam - General Limitations: Language Barrier, Physical Limitation General appearance: alert, in no apparent distress - Head Head exam: Present: atraumatic, normocephalic - Eye Eye exam: Present: normal appearance - ENT ENT exam: Present: mucous membranes dry - Neck Neck exam: Present: normal inspection - Respiratory Respiratory exam: Present: normal lung sounds bilaterally. Absent: respiratory distress, wheezes, rales, rhonchi - Cardiovascular Cardiovascular Exam: Present: normal rhythm, tachycardia. Absent: systolic murmur, diastolic murmur, rubs, gallop - GI/Abdominal GI/Abdominal exam: Present: soft, normal bowel sounds. Absent: distended, tenderness, guarding - Extremities Exam Extremities exam: Present: normal inspection - Back Exam Back exam: Present: normal inspection - Neurological Exam Neurological exam: Present: alert, oriented X3, CN II-XII intact, other ( patient is moving all extremities at baseline she has 5 out of 5 strength on the right arm and leg 4 out of 5 strength in the left arm and leg as she is unable to speak words scan makes sounds however. Cranial nerves within normal limits) - Psychiatric Psychiatric exam: Present: normal affect, normal mood - Skin Skin exam: Present: warm, dry, intact, normal color. Absent: rash ED Course Vital Signs 07/20/17 14:17 Pulse Rate 135 H Respiratory 20 Rate Blood Pressure 140/90 O2 Sat by Pulse 99 Oximetry ED Medical Decision Making - Lab Data Result diagrams: 07/20/17 14:51 07/20/17 14:51 - EKG Data -: EKG Interpreted by Me EKG shows normal: axis, intervals, QRS complexes, ST-T waves Rate: tachycardia - Medical Decision Making Patient's is a 61-year-old asthmatic female is on tube feedings secondary to aphasia from a stroke. Patient is unable to stand without assistance today. Patient is noted to have acute renal failure compared to her baseline and her albumin and creatinine are elevated. Patient will be started on fluids in emergency Department be admitted to Dr. Mccall at this time Critical care attestation.: If time is entered above; I have spent that time in minutes in the direct care of this critically ill patient, excluding procedure time. ED Disposition Clinical Impression: Dehydration, Acute renal insufficiency Disposition: DC09 OP ADMIT IP TO THIS HOSP Is pt being admited?: Yes Does the pt Need Aspirin: No Condition: Serious
[2017-07-20] MEDS ORDERED: NACL 0.9% 500 ML 500 ML IV ONE (17:38)
[2017-07-20 18:46] LABS: Hematocrit 34.3 % (30.3-42.9); Hemoglobin 11.4 gm/dl (10.1-14.3); Mean Corpuscular HGB Conc 33 % (30-34); Mean Corpuscular Hemoglobin 29 pg (28-32); Mean Corpuscular Volume 86 fl (79-97); Platelet Count 186 K/mm3 (140-440); Red Blood Count 3.97 M/mm3 (3.65-5.03); Red Cell Distribution Width 17.4 % (13.2-15.2)
[2017-07-20 19:00] LABS: INR 1.08 (0.87-1.13)
[2017-07-20 19:03] LABS: Albumin 3.4 g/dL (3.9-5); Calcium 8.3 mg/dL (8.4-10.2)
[2017-07-20] MEDS ORDERED: TYLENOL PO PRN (19:09)
[2017-07-20] MEDS ORDERED: TYLENOL ONE (19:12)
[2017-07-20] MEDS ORDERED: NACL 0.9% 1000 ML 1,000 ML ONE (19:39)
[2017-07-20 19:58] LABS: Band Neutrophils # (Manual) 0.1 K/mm3; Eosinophils % (Manual) 0 % (0.0-4.3); Myelocytes # (Manual) 0.1 K/mm3; Total Cells Counted 100
[2017-07-20 20:00] LABS: Platelet Estimate Consistent w Auto
[2017-07-20 21:53] LABS: Bilirubin,Urine NEG (Negative); Blood,Urine NEG (Negative); Color,Urine Yellow (Yellow); Nitrite,Urine NEG (Negative)
[2017-07-20] MEDS: HEPARIN SUB-Q SCH (22:49)
--- NOTE | 2017-07-20 23:22 | XRay Report ---
FINAL REPORT PROCEDURE: XR CHEST 1V AP TECHNIQUE: Chest radiograph anteroposterior view. CPT 20358 HISTORY: possible Sepsis COMPARISON: No prior studies are available for comparison. FINDINGS: Heart: Normal. Mediastinum/Vessels: Normal. Lungs/Pleural space: Normal. Bony thorax: No acute osseous abnormality. Life support devices: None. IMPRESSION: No acute cardiopulmonary abnormality.
--- NOTE | 2017-07-20 23:34 | History and Physical Report ---
History of Present Illness Date of examination: 07/20/17 Date of admission: 07/20/17 15:51 Chief complaint: Cc Severe weakness History of present illness: History of Present Illness 61-year-old female with past medical history of stroke with residual dyphasia and dysphagia and left sided residual weakness especially left upper extremity who is ambulatory now at baseline is presenting with weakness and difficulty standing . Patient's states that starting yesterday she was unable to stand on her own and he noticed that she was generally weak. Patient is getting tube feeds because of dysphagia. Patient's states that he doesn't think that she is getting enough nutrients at this time. Patient was weak and dizzy upon standing today and fell backwards. Patient states she has had a dry mouth he denies any nausea vomiting diarrhea fevers or chills. Patient's states that her weakness in her arms and legs relatively at baseline but she is unable to walk without assistance.No fever or chills. Past History Past Medical History: atrial fib, heart failure, hypertension, hyperlipidemia, stroke Past Surgical History: Other (Peg tube) Social history: smoking (in the past) Family history: hypertension Medications and Allergies Allergies Allergy/AdvReac Type Severity Reaction Status Date / Time No Known Allergies Allergy Verified 03/26/17 07:39 Home Medications Medication Instructions Recorded Confirmed Last Taken Type Metoprolol [Lopressor] 12.5 mg PO DAILY 03/26/17 07/20/17 07/06/17 History hydrALAZINE [Apresoline] 25 mg PO TID 03/26/17 07/20/17 07/06/17 History AtorvaSTATin [Lipitor] 40 mg PO QHS 07/20/17 07/20/17 07/06/17 History Rivaroxaban [Xarelto] 15 mg PO DAILY 07/20/17 07/20/17 07/06/17 History Active Meds: Active Medications Acetaminophen (Tylenol) 650 mg PO Q4H PRN PRN Reason: Pain, Mild (1-3) Heparin Sodium (Porcine) (Heparin) 5,000 unit SUB-Q Q8HR KARLENE Last Admin: 07/20/17 22:49 Dose: 5,000 unit Sodium Chloride (Nacl 0.9% 1000 Ml) 1,000 mls @ 150 mls/hr IV DIRECT KARLENE Review of Systems All systems: negative Constitutional: weight loss, no fever, no chills Ears, nose, mouth and throat: no sore throat, no swelling in mouth, no swelling in throat Breasts: deferred Cardiovascular: no chest pain, no orthopnea, no palpitations, no rapid/ irregular heart beat, no edema, no syncope, no lightheadedness, no shortness of breath Respiratory: no cough, no cough with sputum, no excessive sputum, no hemoptysis , no shortness of breath, no dyspnea on exertion Gastrointestinal: no abdominal pain, no nausea, no vomiting, no diarrhea, no constipation, no change in bowel habits, no hematemesis, no coffee ground emesis Genitourinary Female: no pelvic pain, no flank pain, no menorrhagia, no dysuria , no urinary frequency, no urgency, no stress incontinence, no post void dribbling Menstruation: ammenorrhea Rectal: no pain Musculoskeletal: muscle weakness, frequent falls, no neck stiffness, no neck pain, no shooting arm pain, no arm numbness/tingling Integumentary: no rash, no pruritis, no redness, no sores Neurological: balance difficulties, no head injury, no seizures, no syncope Psychiatric: no anxiety, no memory loss, no change in sleep habits, no sleep disturbances, no insomnia Endocrine: no cold intolerance, no heat intolerance, no polyphagia, no excessive thirst Hematologic/Lymphatic: no easy bruising, no easy bleeding Allergic/Immunologic: no urticaria, no allergic rhinitis, no wheezing Exam - Physical Exam Narrative exam: lying in bed comfortably - Constitutional Vitals: Temp Pulse Resp BP Pulse Ox 99.7 F H 108 H 18 135/84 95 07/20/17 21:48 07/20/17 21:48 07/20/17 21:48 07/20/17 21:48 07/20/17 21:48 General appearance: Present: no acute distress, well-nourished - EENT Eyes: Present: PERRL ENT: hearing intact, clear oral mucosa - Neck Neck: Present: supple, normal ROM - Respiratory Respiratory effort: normal Respiratory: bilateral: CTA - Cardiovascular Heart rate: 76 Rhythm: regular Heart Sounds: Present: S1 & S2. Absent: rub, click - Extremities Extremities: no ischemia, pulses intact, pulses symmetrical, No edema Peripheral Pulses: within normal limits - Abdominal General gastrointestinal: Present: soft, non-tender, non-distended, normal bowel sounds, other (Peg tube in place) Female genitourinary: Present: normal - Rectal Rectal Exam: deferred - Integumentary Integumentary: Present: clear, warm, dry - Musculoskeletal Musculoskeletal: strength equal bilaterally, left sided weakness ([place] LUE 2/5 LLE 4/5), generalized weakness - Psychiatric Psychiatric: appropriate mood/affect, intact judgment & insight - Neurologic Neurologic: CNII-XII intact, moves all extremities - Allied Health Allied health notes reviewed: nursing, case management Results - Labs CBC & Chem 7: 07/21/17 00:54 07/21/17 00:54 Labs: Laboratory Last Values WBC 5.2 K/mm3 (4.5-11.0) 07/20/17 18:19 RBC 3.97 M/mm3 (3.65-5.03) 07/20/17 18:19 Hgb 11.4 gm/dl (10.1-14.3) 07/20/17 18:19 Hct 34.3 % (30.3-42.9) 07/20/17 18:19 MCV 86 fl (79-97) 07/20/17 18:19 MCH 29 pg (28-32) 07/20/17 18:19 MCHC 33 % (30-34) 07/20/17 18:19 RDW 17.4 % (13.2-15.2) H 07/20/17 18:19 Plt Count 186 K/mm3 (140-440) 07/20/17 18:19 Lymph % (Auto) 5.1 % (13.4-35.0) L 07/20/17 14:51 [place] % (Auto) [employer] 07/20/17 18:19 Eos % (Auto) 0.6 % (0.0-4.3) 07/20/17 14:51 Baso % (Auto) 0.3 % (0.0-1.8) 07/20/17 14:51 Lymph # 0.3 K/mm3 (1.2-5.4) L 07/20/17 14:51 [place] # 0.9 K/mm3 (0.0-0.8) H 07/20/17 14:51 Eos # 0.0 K/mm3 (0.0-0.4) 07/20/17 14:51 Baso # 0.0 K/mm3 (0.0-0.1) 07/20/17 14:51 Add Manual Diff Complete 07/20/17 18:19 Total Counted 100 07/20/17 18:19 Seg Neutrophils % 78.6 % (40.0-70.0) H 07/20/17 14:51 Seg Neuts % (Manual) 90.0 % (40.0-70.0) H 07/20/17 18:19 Band Neutrophils % 1.0 % 07/20/17 18:19 Lymphocytes % (Manual) 2.0 % (13.4-35.0) L 07/20/17 18:19 Reactive Lymphs % (Man) 0 % 07/20/17 18:19 Monocytes % (Manual) 5.0 % (0.0-7.3) 07/20/17 18:19 Eosinophils % (Manual) 0 % (0.0-4.3) 07/20/17 18:19 Basophils % (Manual) 1.0 % (0.0-1.8) 07/20/17 18:19 Metamyelocytes % 0 % 07/20/17 18:19 Myelocytes % 1.0 % 07/20/17 18:19 Promyelocytes % 0 % 07/20/17 18:19 Blast Cells % 0 % 07/20/17 18:19 Nucleated RBC % Not Reportable 07/20/17 18:19 Seg Neutrophils # 4.4 K/mm3 (1.8-7.7) 07/20/17 14:51 Seg Neutrophils # Man 4.7 K/mm3 (1.8-7.7) 07/20/17 18:19 Band Neutrophils # 0.1 K/mm3 07/20/17 18:19 Lymphocytes # (Manual) 0.1 K/mm3 (1.2-5.4) L 07/20/17 18:19 Abs React Lymphs (Man) 0.0 K/mm3 07/20/17 18:19 Monocytes # (Manual) 0.3 K/mm3 (0.0-0.8) 07/20/17 18:19 Eosinophils # (Manual) 0.0 K/mm3 (0.0-0.4) 07/20/17 18:19 Basophils # (Manual) 0.1 K/mm3 (0.0-0.1) 07/20/17 18:19 Metamyelocytes # 0.0 K/mm3 07/20/17 18:19 Myelocytes # 0.1 K/mm3 07/20/17 18:19 Promyelocytes # 0.0 K/mm3 07/20/17 18:19 Blast Cells # 0.0 K/mm3 07/20/17 18:19 WBC Morphology Not Reportable 07/20/17 18:19 Hypersegmented Neuts Not Reportable 07/20/17 18:19 Hyposegmented Neuts Not Reportable 07/20/17 18:19 Hypogranular Neuts Not Reportable 07/20/17 18:19 Smudge Cells Not Reportable 07/20/17 18:19 Toxic Granulation Not Reportable 07/20/17 18:19 Toxic Vacuolation Not Reportable 07/20/17 18:19 Dohle Bodies Not Reportable 07/20/17 18:19 Pelger-Huet Anomaly Not Reportable 07/20/17 18:19 Kristin Rods Not Reportable 07/20/17 18:19 Platelet Estimate Consistent w auto 07/20/17 18:19 Clumped Platelets Not Reportable 07/20/17 18:19 Plt Clumps, EDTA Not Reportable 07/20/17 18:19 Large Platelets Not Reportable 07/20/17 18:19 Giant Platelets Not Reportable 07/20/17 18:19 Platelet Satelliting Not Reportable 07/20/17 18:19 Plt Morphology Comment Not Reportable 07/20/17 18:19 RBC Morphology Not Reportable 07/20/17 18:19 Dimorphic RBCs Not Reportable 07/20/17 18:19 Polychromasia Not Reportable 07/20/17 18:19 Hypochromasia Not Reportable 07/20/17 18:19 Poikilocytosis Not Reportable 07/20/17 18:19 Anisocytosis Not Reportable 07/20/17 18:19 Microcytosis Not Reportable 07/20/17 18:19 Macrocytosis Not Reportable 07/20/17 18:19 Spherocytes Not Reportable 07/20/17 18:19 Pappenheimer Bodies Not Reportable 07/20/17 18:19 Sickle Cells Not Reportable 07/20/17 18:19 Target Cells Not Reportable 07/20/17 18:19 Tear Drop Cells Not Reportable 07/20/17 18:19 Ovalocytes Not Reportable 07/20/17 18:19 Helmet Cells Not Reportable 07/20/17 18:19 [place] Bodies Not Reportable 07/20/17 18:19 [place] Rings Not Reportable 07/20/17 18:19 Lul Cells Not Reportable 07/20/17 18:19 Bite Cells Not Reportable 07/20/17 18:19 Crenated Cell Not Reportable 07/20/17 18:19 Elliptocytes Not Reportable 07/20/17 18:19 Acanthocytes (Spur) Not Reportable 07/20/17 18:19 Rouleaux Not Reportable 07/20/17 18:19 Hemoglobin C Crystals Not Reportable 07/20/17 18:19 Schistocytes Not Reportable 07/20/17 18:19 Malaria parasites Not Reportable 07/20/17 18:19 Wilver Bodies Not Reportable 07/20/17 18:19 Hem Pathologist Commnt No 07/20/17 18:19 PT 14.6 Sec. (12.2-14.9) 07/20/17 18:19 INR 1.08 (0.87-1.13) 07/20/17 18:19 VBG pH 7.413 (7.320-7.420) 07/20/17 18:19 Sodium 136 mmol/L (137-145) L 07/20/17 18:19 Potassium 4.8 mmol/L (3.6-5.0) 07/20/17 18:19 Chloride 99.0 mmol/L (98-107) 07/20/17 18:19 Carbon Dioxide 21 mmol/L (22-30) L 07/20/17 18:19 Anion Gap 21 mmol/L 07/20/17 18:19 BUN 39 mg/dL (7-17) H 07/20/17 18:19 Creatinine 1.3 mg/dL (0.7-1.2) H 07/20/17 18:19 Estimated GFR 50 ml/min 07/20/17 18:19 BUN/Creatinine Ratio 30 % 07/20/17 18:19 Glucose 111 mg/dL (65-100) H 07/20/17 18:19 POC Glucose 113 (70-105) H 07/20/17 20:39 Lactic Acid 0.80 mmol/L (0.7-2.0) 07/20/17 21:02 Calcium 8.3 mg/dL (8.4-10.2) L 07/20/17 18:19 Total Bilirubin 0.30 mg/dL (0.1-1.2) 07/20/17 18:19 AST 73 units/L (5-40) H 07/20/17 18:19 ALT 63 units/L (7-56) H 07/20/17 18:19 Alkaline Phosphatase 192 units/L (35-129) H 07/20/17 18:19 Total Protein 7.1 g/dL (6.3-8.2) 07/20/17 18:19 Albumin 3.4 g/dL (3.9-5) L 07/20/17 18:19 Albumin/Globulin Ratio 0.9 % 07/20/17 18:19 Urine Color Yellow (Yellow) 07/20/17 21:33 Urine Turbidity Clear (Clear) 07/20/17 21:33 Urine pH 6.0 (5.0-7.0) 07/20/17 21:33 Ur Specific [place] 1.015 (1.003-1.030) 07/20/17 21:33 Urine Protein 30 mg/dl mg/dL (Negative) 07/20/17 21:33 Urine Glucose (UA) Neg mg/dL (Negative) 07/20/17 21:33 Urine Ketones Neg mg/dL (Negative) 07/20/17 21:33 Urine Blood Neg (Negative) 07/20/17 21:33 Urine Nitrite Neg (Negative) 07/20/17 21:33 Urine Bilirubin Neg (Negative) 07/20/17 21:33 Urine Urobilinogen 2.0 mg/dL (<2.0) 07/20/17 21:33 Ur Leukocyte Esterase Neg (Negative) 07/20/17 21:33 Urine WBC (Auto) 1.0 /HPF (0.0-6.0) 07/20/17 21:33 Urine RBC (Auto) 2.0 /HPF (0.0-6.0) 07/20/17 21:33 - Imaging and Cardiology EKG: report reviewed Chest x-ray: report reviewed Assessment and Plan Advance Directives: Yes (Full code) VTE prophylaxis?: Chemical Plan of care discussed with patient/family: Yes - Patient Problems (1) DENISE (acute kidney injury) Current Visit: Yes Status: Acute Plan to address problem: IV fluids for now Possible ATN /Vasomotor nephropathy (2) Myopathy Current Visit: Yes Status: Acute Plan to address problem: Sec to Statins Will stop statins Transaminases high sec to statins Check Creatine kinase (3) Hyperkalemia Current Visit: Yes Status: Acute Plan to address problem: Should correct with IV fluids. Mild. No Kayexalate or calcium gluconate given (4) Dehydration Current Visit: Yes Status: Acute Plan to address problem: iV fluids for now (5) CHF (congestive heart failure) Current Visit: No Status: Acute (6) CVA (cerebral vascular accident) Current Visit: No Status: Chronic Qualifiers: CVA mechanism: thrombosis Laterality of affected vessel: right Plan to address problem: With Left sided weakness PT ordered (7) HTN (hypertension) Current Visit: Yes Status: Chronic Qualifiers: Hypertension type: essential hypertension Qualified Code(s): I10 - Essential (primary) hypertension Plan to address problem: Cont antihypertensives (8) Hyperlipidemia Current Visit: Yes Status: Chronic Qualifiers: Hyperlipidemia type: mixed hyperlipidemia Qualified Code(s): E78.2 - Mixed hyperlipidemia Plan to address problem: Stop statins--- may be causing myopathy. (9) Transaminitis Current Visit: Yes Status: Acute Plan to address problem: Secondary to statins. Stop statins. Check hepatitis profile to make sure there is no hepatitis B or C (10) DVT prophylaxis Current Visit: Yes Status: Acute Plan to address problem: Patient already on xarelto
[2017-07-21] MEDS ORDERED: TYLENOL PO PRN (00:35)
[2017-07-21] MEDS ORDERED: MORPHINE IV PRN (00:35)
[2017-07-21] MEDS ORDERED: DULCOLAX PR PRN (00:35)
[2017-07-21] MEDS ORDERED: ZOFRAN IV PRN (00:35)
[2017-07-21] MEDS ORDERED: DILAUDID IV PRN (00:35)
[2017-07-21] MEDS ORDERED: MILK OF MAGNESIA PO PRN (00:35)
[2017-07-21] MEDS: PEPCID IV SCH ×3 (01:28→21:55)
[2017-07-21] MEDS: D5NS 1,000 ML IV SCH ×3 (01:29→15:07)
[2017-07-21 01:45] LABS: Hematocrit 28.2 % (30.3-42.9); Hemoglobin 9.1 gm/dl (10.1-14.3); Mean Corpuscular HGB Conc 32 % (30-34); Mean Corpuscular Hemoglobin 29 pg (28-32); Mean Corpuscular Volume 88 fl (79-97); Platelet Count 137 K/mm3 (140-440); Red Blood Count 3.19 M/mm3 (3.65-5.03); Red Cell Distribution Width 17.1 % (13.2-15.2)
[2017-07-21 02:03] LABS: Alanine Aminotransferase 42 units/L (7-56); BUN/Creatinine Ratio 29; Blood Urea Nitrogen 26 mg/dL (7-17); Calcium 6.2 mg/dL (8.4-10.2); Hemolysis Index 24
[2017-07-21 03:04] LABS: Eosinophils % (Manual) 0 % (0.0-4.3); Platelet Estimate Consistent w Auto; Total Cells Counted 100
[2017-07-21] MEDS: HEPARIN SUB-Q SCH (06:00)
[2017-07-21] MEDS ORDERED: SIMPLE SYRUP FEEDTUBE PRN ×4 (07:43→14:35)
[2017-07-21] MEDS ORDERED: PANCREAZE DR 10,500 UNIT FEEDTUBE PRN ×2 (07:43→14:35)
[2017-07-21] MEDS ORDERED: SODIUM BICARBONATE FEEDTUBE PRN ×2 (07:43→14:35)
[2017-07-21] MEDS: APRESOLINE PO SCH ×3 (08:00→21:56)
--- NOTE | 2017-07-21 08:03 | Progress Note ---
Assessment and Plan - Patient Problems (1) DENISE (acute kidney injury) Current Visit: Yes Status: Acute Plan to address problem: IV fluids for now Possible ATN /Vasomotor nephropathy BUN/creatinine improved from 41/1.4-to 26/0.9 (2) Myopathy Current Visit: Yes Status: Acute Plan to address problem: Sec to Statins Will stop statins Transaminases high sec to statins Check Creatine kinase (3) Hyperkalemia Current Visit: Yes Status: Acute Plan to address problem: Should correct with IV fluids. Mild. No Kayexalate or calcium gluconate given (4) Dehydration Current Visit: Yes Status: Acute Plan to address problem: iV fluids for now (5) CHF (congestive heart failure) Current Visit: No Status: Acute (6) CVA (cerebral vascular accident) Current Visit: No Status: Chronic Qualifiers: CVA mechanism: thrombosis Laterality of affected vessel: right Plan to address problem: With Left sided weakness PT ordered (7) HTN (hypertension) Current Visit: Yes Status: Chronic Qualifiers: Hypertension type: essential hypertension Qualified Code(s): I10 - Essential (primary) hypertension Plan to address problem: Cont antihypertensives (8) Hyperlipidemia Current Visit: Yes Status: Chronic Qualifiers: Hyperlipidemia type: mixed hyperlipidemia Plan to address problem: Stop statins--- may be causing myopathy. (9) Transaminitis Current Visit: Yes Status: Acute Plan to address problem: Secondary to statins. Stop statins. Check hepatitis profile to make sure there is no hepatitis B or C. liver enzymes improved (10) Hypokalemia Current Visit: Yes Status: Acute Plan to address problem: Supplement with potassium (11) DVT prophylaxis Current Visit: Yes Status: Acute Plan to address problem: Patient already on xarelto Subjective Date of service: 07/21/17 Principal diagnosis: Acute kidney injury, myopathy and transaminitis Interval history: Patient doing better. Says that she feels stronger. Objective - Exam Narrative Exam: lying in bed comfortably - Constitutional Vitals: Vital Signs - 12hr 07/20/17 07/20/17 07/20/17 20:00 20:10 20:14 Temperature 103.0 F H Pulse Rate 120 H Respiratory 20 Rate Respiratory Rate [Denies Pain] Blood Pressure 123/82 123/82 Blood Pressure 141/95 [Right] O2 Sat by Pulse 100 99 98 Oximetry 07/20/17 07/20/1718 20:30 20:45 21:00 Temperature Pulse Rate Respiratory Rate Respiratory Rate [Denies Pain] Blood Pressure 122/79 127/80 126/81 Blood Pressure [Right] O2 Sat by Pulse Oximetry 07/20/17 07/20/17 07/20/17 21:15 21:24 21:31 Temperature Pulse Rate Respiratory Rate Respiratory Rate [Denies Pain] Blood Pressure 129/75 129/75 129/75 Blood Pressure [Right] O2 Sat by Pulse 90 73 L Oximetry 07/20/17 07/20/17 07/20/17 21:48 22:00 23:31 Temperature 99.7 F H 98.8 F Pulse Rate 108 H 103 H Respiratory 18 18 17 Rate Respiratory 18 Rate [Denies Pain] Blood Pressure 135/84 126/83 Blood Pressure [Right] O2 Sat by Pulse 95 99 Oximetry 07/21/17 04:18 Temperature 99.2 F Pulse Rate 116 H Respiratory 16 Rate Respiratory Rate [Denies Pain] Blood Pressure 134/95 Blood Pressure [Right] O2 Sat by Pulse 96 Oximetry General appearance: Present: no acute distress, well-nourished - EENT Eyes: PERRL, EOM intact ENT: hearing intact, clear oral mucosa Ears: bilateral: normal - Neck Neck: supple, normal ROM - Respiratory Respiratory effort: normal Respiratory: bilateral: CTA - Breasts Breasts: normal - Cardiovascular Heart rate: 100 Rhythm: regular Heart Sounds: Present: S1 & S2. Absent: gallop, rub Extremities: no ischemia, pulses intact, No edema, normal color, Full ROM - Gastrointestinal General gastrointestinal: Present: soft, non-tender, non-distended, normal bowel sounds - Genitourinary Female genitourinary: normal - Integumentary Integumentary: clear, warm, dry - Musculoskeletal Musculoskeletal: 1, strength equal bilaterally - Neurologic Neurologic: CNII-XII intact, focal deficits (left upper extremity weakness 2/5 power left lower extremity 4/5 power), moves all extremities, gait normal (able to walk but with circumduction gait and slowly) - Psychiatric Psychiatric: memory intact, appropriate mood/affect, intact judgment & insight - Allied health notes Allied health notes reviewed: nursing, case management - Labs CBC & Chem 7: 07/21/17 00:54 07/21/17 00:54 Labs: Abnormal lab results 07/20/17 07/20/17 07/20/17 Range/Units 14:51 14:51 18:19 WBC (4.5-11.0) K/mm3 RBC (3.65-5.03) M/mm3 Hgb (10.1-14.3) gm/dl Hct (30.3-42.9) % RDW 17.3 H 17.4 H (13.2-15.2) % Plt Count (140-440) K/mm3 Lymph % (Auto) 5.1 L (13.4-35.0) % [place] % (Auto) 15.4 H (0.0-7.3) % Lymph # 0.3 L (1.2-5.4) K/mm3 [place] # 0.9 H (0.0-0.8) K/mm3 Seg Neutrophils % 78.6 H (40.0-70.0) % Seg Neuts % (Manual) 90.0 H (40.0-70.0) % Lymphocytes % (Manual) 2.0 L (13.4-35.0) % Monocytes % (Manual) (0.0-7.3) % Lymphocytes # (Manual) 0.1 L (1.2-5.4) K/mm3 Sodium 136 L (137-145) mmol/L Potassium 5.3 H (3.6-5.0) mmol/L Chloride 97.8 L (98-107) mmol/L Carbon Dioxide (22-30) mmol/L BUN 41 H (7-17) mg/dL Creatinine 1.4 H (0.7-1.2) mg/dL Glucose 129 H (65-100) mg/dL POC Glucose (70-105) Calcium (8.4-10.2) mg/dL AST (5-40) units/L ALT (7-56) units/L Alkaline Phosphatase (35-129) units/L Total Protein (6.3-8.2) g/dL Albumin (3.9-5) g/dL 07/20/17 07/20/17 07/21/17 Range/Units 18:19 20:39 00:54 WBC 3.1 L (4.5-11.0) K/mm3 RBC 3.19 L (3.65-5.03) M/mm3 Hgb 9.1 L (10.1-14.3) gm/dl Hct 28.2 L D (30.3-42.9) % RDW 17.1 H (13.2-15.2) % Plt Count 137 L (140-440) K/mm3 Lymph % (Auto) (13.4-35.0) % [place] % (Auto) (0.0-7.3) % Lymph # (1.2-5.4) K/mm3 [place] # (0.0-0.8) K/mm3 Seg Neutrophils % (40.0-70.0) % Seg Neuts % (Manual) 80.0 H (40.0-70.0) % Lymphocytes % (Manual) 5.0 L (13.4-35.0) % Monocytes % (Manual) 14.0 H (0.0-7.3) % Lymphocytes # (Manual) 0.2 L (1.2-5.4) K/mm3 Sodium 136 L (137-145) mmol/L Potassium (3.6-5.0) mmol/L Chloride (98-107) mmol/L Carbon Dioxide 21 L (22-30) mmol/L BUN 39 H (7-17) mg/dL Creatinine 1.3 H (0.7-1.2) mg/dL Glucose 111 H (65-100) mg/dL POC Glucose 113 H (70-105) Calcium 8.3 L (8.4-10.2) mg/dL AST 73 H (5-40) units/L ALT 63 H (7-56) units/L Alkaline Phosphatase 192 H (35-129) units/L Total Protein (6.3-8.2) g/dL Albumin 3.4 L (3.9-5) g/dL 07/21/17 Range/Units 00:54 WBC (4.5-11.0) K/mm3 RBC (3.65-5.03) M/mm3 Hgb (10.1-14.3) gm/dl Hct (30.3-42.9) % RDW (13.2-15.2) % Plt Count (140-440) K/mm3 Lymph % (Auto) (13.4-35.0) % [place] % (Auto) (0.0-7.3) % Lymph # (1.2-5.4) K/mm3 [place] # (0.0-0.8) K/mm3 Seg Neutrophils % (40.0-70.0) % Seg Neuts % (Manual) (40.0-70.0) % Lymphocytes % (Manual) (13.4-35.0) % Monocytes % (Manual) (0.0-7.3) % Lymphocytes # (Manual) (1.2-5.4) K/mm3 Sodium (137-145) mmol/L Potassium 3.4 L D (3.6-5.0) mmol/L Chloride 109.3 H (98-107) mmol/L Carbon Dioxide 19 L (22-30) mmol/L BUN 26 H (7-17) mg/dL Creatinine (0.7-1.2) mg/dL Glucose (65-100) mg/dL POC Glucose (70-105) Calcium 6.2 L D (8.4-10.2) mg/dL AST 49 H (5-40) units/L ALT (7-56) units/L Alkaline Phosphatase (35-129) units/L Total Protein 5.3 L D (6.3-8.2) g/dL Albumin 2.0 L (3.9-5) g/dL - Imaging and cardiology EKG: report reviewed (sinus tachycardia nonspecific ST-T wave changes)
[2017-07-21] MEDS: XARELTO PO SCH (10:00)
[2017-07-21] MEDS: LOPRESSOR PO SCH (10:00)
[2017-07-21 11:40] LABS: Hepatitis A Antibody IgM Non-Reactive (NonReactive); Hepatitis B Core IgM Non-Reactive (NonReactive); Hepatitis B Surface Antigen Non-Reactive (Negative); Hepatitis C Virus Antibody Non-Reactive (NonReactive)
[2017-07-22] MEDS: D5NS 1,000 ML IV SCH (02:47)
[2017-07-22 04:33] LABS: Hematocrit 39.9 % (30.3-42.9); Hemoglobin 13.3 gm/dl (10.1-14.3); Mean Corpuscular HGB Conc 33 % (30-34); Mean Corpuscular Hemoglobin 29 pg (28-32); Mean Corpuscular Volume 86 fl (79-97); Platelet Count 186 K/mm3 (140-440); Red Blood Count 4.63 M/mm3 (3.65-5.03); Red Cell Distribution Width 17.5 % (13.2-15.2)
[2017-07-22 04:58] LABS: BUN/Creatinine Ratio 25; Blood Urea Nitrogen 27 mg/dL (7-17); Calcium 8.2 mg/dL (8.4-10.2); Hemolysis Index 19
[2017-07-22 05:35] LABS: Band Neutrophils # (Manual) 0.4 K/mm3; Eosinophils % (Manual) 0 % (0.0-4.3); Total Cells Counted 100
[2017-07-22 05:36] LABS: Platelet Estimate Consistent w Auto
[2017-07-22] MEDS: APRESOLINE PO SCH ×3 (08:35→21:53)
[2017-07-22] MEDS: PEPCID PO SCH ×2 (10:00→21:48)
[2017-07-22] MEDS: LOPRESSOR PO SCH (10:00)
[2017-07-22] MEDS: XARELTO PO SCH (10:00)
--- NOTE | 2017-07-22 12:54 | Progress Note ---
<ALLYN ROSADO - Last Filed: 07/22/17 16:13> Assessment and Plan Assessment and plan: 61-year-old female with past medical history of stroke with residual dysphagia and left sided residual weakness especially left upper extremity who is ambulatory now at baseline is presenting with weakness and difficulty standing . Patient's states that starting the day before hospital admission she was unable to stand on her own and he noticed that she was generally weak. Patient is getting tube feeds because of dysphagia. Patient's states that he doesn't think that she is getting enough nutrients at this time. Patient was weak and dizzy upon standing day of admission and fell backwards. Patient states she has had a dry mouth he denies any nausea vomiting diarrhea fevers or chills. Patient's states that her weakness in her arms and legs relatively at baseline but she is unable to walk without assistance.No fever or chills. Sepsis likely viral Start IV antibiotics, antipyretics, supportive care, Flu antigen neg ID consulted DENISE (acute kidney injury) Possible ATN /Vasomotor nephropathy BUN/creatinine stable for now will continue to monitor improved from 41/1.4-to 26/0.9 Hyperglycemia A1C5.4, likely secondary to D5 administration, D5 d/cd Hyperkalemia Now stable continue to monitor, corrected with IV fluids, Mild. No Kayexalate or calcium gluconate given Dehydration from Continue iV fluids for now CHF (congestive heart failure) Echo 1017 showed ejection fraction 10-15% with combined systolic and diastolic heart failure Continue Beta Teresa Strict I&O's and daily weights Low-sodium/cardiac diet/fluid restriction 1200mL in 24 hours. Closely monitor electrolytes CVA (cerebral vascular accident) With Left sided weakness CT head, PT ordered HTN (hypertension) Cont antihypertensives Hyperlipidemia Stop statins--- may be causing myopathy. Transaminitis Secondary to statins. Stop statins. negative hepatitis panel to make sure there is no hepatitis B or C. liver enzymes improved Hypokalemia Stable now, Supplement with potassium PRN Severe Malnutrition Nutrition consulted DVT prophylaxis Patient already on xarelto History Interval history: Patient was seen and examined. Follow up on chief complaint of weakness. She denies chest pain, shortness of breath, nausea vomiting. Labs and nursing notes reviewed. Hospitalist Physical - Constitutional Vitals: Temp Pulse Resp BP Pulse Ox 98.3 F 101 H 20 114/77 100 07/22/17 07:24 07/22/17 07:24 07/22/17 07:24 07/22/17 08:35 07/22/17 07:24 General appearance: Present: no acute distress, well-nourished - EENT Eyes: Present: PERRL, EOM intact ENT: hearing intact, clear oral mucosa - Neck Neck: Present: supple, normal ROM - Respiratory Respiratory effort: normal Respiratory: bilateral: CTA - Cardiovascular Rhythm: regular Heart Sounds: Present: S1 & S2 - Extremities Extremities: no ischemia, No edema - Abdominal General gastrointestinal: soft, non-tender, non-distended - Integumentary Integumentary: Present: clear, warm, dry - Psychiatric Psychiatric: cooperative - Neurologic Neurologic: CNII-XII intact, focal deficits (LUE weakness L>R) - Allied Health Allied health notes reviewed: nursing Results - Labs CBC & Chem 7: 07/22/17 04:12 07/22/17 04:12 Labs: Laboratory Last Values WBC 2.8 K/mm3 (4.5-11.0) L 07/22/17 04:12 RBC 4.63 M/mm3 (3.65-5.03) 07/22/17 04:12 Hgb 13.3 gm/dl (10.1-14.3) D 07/22/17 04:12 Hct 39.9 % (30.3-42.9) D 07/22/17 04:12 MCV 86 fl (79-97) 07/22/17 04:12 MCH 29 pg (28-32) 07/22/17 04:12 MCHC 33 % (30-34) 07/22/17 04:12 RDW 17.5 % (13.2-15.2) H 07/22/17 04:12 Plt Count 186 K/mm3 (140-440) 07/22/17 04:12 Lymph % (Auto) 5.1 % (13.4-35.0) L 07/20/17 14:51 Benson % (Auto) Election Clerk 07/22/17 04:12 Eos % (Auto) 0.6 % (0.0-4.3) 07/20/17 14:51 Baso % (Auto) 0.3 % (0.0-1.8) 07/20/17 14:51 Lymph # 0.3 K/mm3 (1.2-5.4) L 07/20/17 14:51 Benson # 0.9 K/mm3 (0.0-0.8) H 07/20/17 14:51 Eos # 0.0 K/mm3 (0.0-0.4) 07/20/17 14:51 Baso # 0.0 K/mm3 (0.0-0.1) 07/20/17 14:51 Add Manual Diff Complete 07/22/17 04:12 Total Counted 100 07/22/17 04:12 Seg Neutrophils % 78.6 % (40.0-70.0) H 07/20/17 14:51 Seg Neuts % (Manual) 58.0 % (40.0-70.0) 07/22/17 04:12 Band Neutrophils % 13.0 % 07/22/17 04:12 Lymphocytes % (Manual) 21.0 % (13.4-35.0) 07/22/17 04:12 Reactive Lymphs % (Man) 0 % 07/22/17 04:12 Monocytes % (Manual) 7.0 % (0.0-7.3) 07/22/17 04:12 Eosinophils % (Manual) 0 % (0.0-4.3) 07/22/17 04:12 Basophils % (Manual) 1.0 % (0.0-1.8) 07/22/17 04:12 Metamyelocytes % 0 % 07/22/17 04:12 Myelocytes % 0 % 07/22/17 04:12 Promyelocytes % 0 % 07/22/17 04:12 Blast Cells % 0 % 07/22/17 04:12 Nucleated RBC % Not Reportable 07/22/17 04:12 Seg Neutrophils # 4.4 K/mm3 (1.8-7.7) 07/20/17 14:51 Seg Neutrophils # Man 1.6 K/mm3 (1.8-7.7) L 07/22/17 04:12 Band Neutrophils # 0.4 K/mm3 07/22/17 04:12 Lymphocytes # (Manual) 0.6 K/mm3 (1.2-5.4) L 07/22/17 04:12 Abs React Lymphs (Man) 0.0 K/mm3 07/22/17 04:12 Monocytes # (Manual) 0.2 K/mm3 (0.0-0.8) 07/22/17 04:12 Eosinophils # (Manual) 0.0 K/mm3 (0.0-0.4) 07/22/17 04:12 Basophils # (Manual) 0.0 K/mm3 (0.0-0.1) 07/22/17 04:12 Metamyelocytes # 0.0 K/mm3 07/22/17 04:12 Myelocytes # 0.0 K/mm3 07/22/17 04:12 Promyelocytes # 0.0 K/mm3 07/22/17 04:12 Blast Cells # 0.0 K/mm3 07/22/17 04:12 WBC Morphology Not Reportable 07/22/17 04:12 Hypersegmented Neuts Not Reportable 07/22/17 04:12 Hyposegmented Neuts Not Reportable 07/22/17 04:12 Hypogranular Neuts Not Reportable 07/22/17 04:12 Smudge Cells Not Reportable 07/22/17 04:12 Toxic Granulation Not Reportable 07/22/17 04:12 Toxic Vacuolation Not Reportable 07/22/17 04:12 Dohle Bodies Not Reportable 07/22/17 04:12 Pelger-Huet Anomaly Not Reportable 07/22/17 04:12 Kristin Rods Not Reportable 07/22/17 04:12 Platelet Estimate Consistent w auto 07/22/17 04:12 Clumped Platelets Not Reportable 07/22/17 04:12 Plt Clumps, EDTA Not Reportable 07/22/17 04:12 Large Platelets Not Reportable 07/22/17 04:12 Giant Platelets Not Reportable 07/22/17 04:12 Platelet Satelliting Not Reportable 07/22/17 04:12 Plt Morphology Comment Not Reportable 07/22/17 04:12 RBC Morphology Not Reportable 07/22/17 04:12 Dimorphic RBCs Not Reportable 07/22/17 04:12 Polychromasia Not Reportable 07/22/17 04:12 Hypochromasia Not Reportable 07/22/17 04:12 Poikilocytosis Not Reportable 07/22/17 04:12 Anisocytosis Not Reportable 07/22/17 04:12 Microcytosis Not Reportable 07/22/17 04:12 Macrocytosis Not Reportable 07/22/17 04:12 Spherocytes Not Reportable 07/22/17 04:12 Pappenheimer Bodies Not Reportable 07/22/17 04:12 Sickle Cells Not Reportable 07/22/17 04:12 Target Cells Not Reportable 07/22/17 04:12 Tear Drop Cells Not Reportable 07/22/17 04:12 Ovalocytes Not Reportable 07/22/17 04:12 Helmet Cells Not Reportable 07/22/17 04:12 [place] Bodies Not Reportable 07/22/17 04:12 Edison Rings Not Reportable 07/22/17 04:12 [place] Cells Not Reportable 07/22/17 04:12 Bite Cells Not Reportable 07/22/17 04:12 Crenated Cell Not Reportable 07/22/17 04:12 Elliptocytes Not Reportable 07/22/17 04:12 Acanthocytes (Spur) Not Reportable 07/22/17 04:12 Rouleaux Not Reportable 07/22/17 04:12 Hemoglobin C Crystals Not Reportable 07/22/17 04:12 Schistocytes Not Reportable 07/22/17 04:12 Malaria parasites Not Reportable 07/22/17 04:12 Wilver Bodies Not Reportable 07/22/17 04:12 Hem Pathologist Commnt No 07/22/17 04:12 PT 14.6 Sec. (12.2-14.9) 07/20/17 18:19 INR 1.08 (0.87-1.13) 07/20/17 18:19 VBG pH 7.413 (7.320-7.420) 07/20/17 18:19 Sodium 136 mmol/L (137-145) L 07/22/17 04:12 Potassium 4.4 mmol/L (3.6-5.0) D 07/22/17 04:12 Chloride 104.1 mmol/L (98-107) 07/22/17 04:12 Carbon Dioxide 20 mmol/L (22-30) L 07/22/17 04:12 Anion Gap 16 mmol/L 07/22/17 04:12 BUN 27 mg/dL (7-17) H 07/22/17 04:12 Creatinine 1.1 mg/dL (0.7-1.2) 07/22/17 04:12 Estimated GFR > 60 ml/min 07/22/17 04:12 BUN/Creatinine Ratio 25 % 07/22/17 04:12 Glucose 134 mg/dL (65-100) H 07/22/17 04:12 POC Glucose 167 (70-105) H 07/22/17 11:20 Hemoglobin A1c 5.4 % (4-6) 07/21/17 00:54 Lactic Acid 0.80 mmol/L (0.7-2.0) 07/20/17 21:02 Calcium 8.2 mg/dL (8.4-10.2) L D 07/22/17 04:12 Phosphorus 2.70 mg/dL (2.5-4.5) 07/22/17 04:12 Magnesium 1.90 mg/dL (1.7-2.3) 07/22/17 04:12 Total Bilirubin 0.30 mg/dL (0.1-1.2) 07/21/17 00:54 AST 49 units/L (5-40) H 07/21/17 00:54 ALT 42 units/L (7-56) 07/21/17 00:54 Alkaline Phosphatase 124 units/L (35-129) 07/21/17 00:54 Total Creatine Kinase 175 units/L (30-135) H 07/21/17 09:22 Total Protein 5.3 g/dL (6.3-8.2) L D 07/21/17 00:54 Albumin 2.0 g/dL (3.9-5) L 07/21/17 00:54 Albumin/Globulin Ratio 0.6 % 07/21/17 00:54 Urine Color Yellow (Yellow) 07/20/17 21:33 Urine Turbidity Clear (Clear) 07/20/17 21:33 Urine pH 6.0 (5.0-7.0) 07/20/17 21:33 Ur Specific [place] 1.015 (1.003-1.030) 07/20/17 21:33 Urine Protein 30 mg/dl mg/dL (Negative) 07/20/17 21:33 Urine Glucose (UA) Neg mg/dL (Negative) 07/20/17 21:33 Urine Ketones Neg mg/dL (Negative) 07/20/17 21:33 Urine Blood Neg (Negative) 07/20/17 21:33 Urine Nitrite Neg (Negative) 07/20/17 21:33 Urine Bilirubin Neg (Negative) 07/20/17 21:33 Urine Urobilinogen 2.0 mg/dL (<2.0) 07/20/17 21:33 Ur Leukocyte Esterase Neg (Negative) 07/20/17 21:33 Urine WBC (Auto) 1.0 /HPF (0.0-6.0) 07/20/17 21:33 Urine RBC (Auto) 2.0 /HPF (0.0-6.0) 07/20/17 21:33 Hepatitis A IgM Ab Non-reactive (NonReactive) 07/21/17 09:22 Hep Bs Antigen Non-reactive (Negative) 07/21/17 09:22 Hep B Core IgM Ab Non-reactive (NonReactive) 07/21/17 09:22 Hepatitis C Antibody Non-reactive (NonReactive) 07/21/17 09:22 <BETHANY PAVON R - Last Filed: 07/22/17 18:37> Assessment and Plan Assessment and plan: I saw and evaluated the patient. I agree with the findings and the plan of care as documented in the Nurse Practitioner's~note, with the following corrections and additions. Hospitalist Physical - Constitutional Vitals: Temp Pulse Resp BP Pulse Ox 101.1 F H 111 H 20 129/86 92 07/22/17 16:20 07/22/17 16:20 07/22/17 16:20 07/22/17 16:20 07/22/17 16:20 Results - Labs CBC & Chem 7: 07/22/17 04:12 07/22/17 04:12 Labs: Laboratory Last Values WBC 2.8 K/mm3 (4.5-11.0) L 07/22/17 04:12 RBC 4.63 M/mm3 (3.65-5.03) 07/22/17 04:12 Hgb 13.3 gm/dl (10.1-14.3) D 07/22/17 04:12 Hct 39.9 % (30.3-42.9) D 07/22/17 04:12 MCV 86 fl (79-97) 07/22/17 04:12 MCH 29 pg (28-32) 07/22/17 04:12 MCHC 33 % (30-34) 07/22/17 04:12 RDW 17.5 % (13.2-15.2) H 07/22/17 04:12 Plt Count 186 K/mm3 (140-440) 07/22/17 04:12 Lymph % (Auto) 5.1 % (13.4-35.0) L 07/20/17 14:51 Benson % (Auto) Election Clerk 07/22/17 04:12 Eos % (Auto) 0.6 % (0.0-4.3) 07/20/17 14:51 Baso % (Auto) 0.3 % (0.0-1.8) 07/20/17 14:51 Lymph # 0.3 K/mm3 (1.2-5.4) L 07/20/17 14:51 Benson # 0.9 K/mm3 (0.0-0.8) H 07/20/17 14:51 Eos # 0.0 K/mm3 (0.0-0.4) 07/20/17 14:51 Baso # 0.0 K/mm3 (0.0-0.1) 07/20/17 14:51 Add Manual Diff Complete 07/22/17 04:12 Total Counted 100 07/22/17 04:12 Seg Neutrophils % 78.6 % (40.0-70.0) H 07/20/17 14:51 Seg Neuts % (Manual) 58.0 % (40.0-70.0) 07/22/17 04:12 Band Neutrophils % 13.0 % 07/22/17 04:12 Lymphocytes % (Manual) 21.0 % (13.4-35.0) 07/22/17 04:12 Reactive Lymphs % (Man) 0 % 07/22/17 04:12 Monocytes % (Manual) 7.0 % (0.0-7.3) 07/22/17 04:12 Eosinophils % (Manual) 0 % (0.0-4.3) 07/22/17 04:12 Basophils % (Manual) 1.0 % (0.0-1.8) 07/22/17 04:12 Metamyelocytes % 0 % 07/22/17 04:12 Myelocytes % 0 % 07/22/17 04:12 Promyelocytes % 0 % 07/22/17 04:12 Blast Cells % 0 % 07/22/17 04:12 Nucleated RBC % Not Reportable 07/22/17 04:12 Seg Neutrophils # 4.4 K/mm3 (1.8-7.7) 07/20/17 14:51 Seg Neutrophils # Man 1.6 K/mm3 (1.8-7.7) L 07/22/17 04:12 Band Neutrophils # 0.4 K/mm3 07/22/17 04:12 Lymphocytes # (Manual) 0.6 K/mm3 (1.2-5.4) L 07/22/17 04:12 Abs React Lymphs (Man) 0.0 K/mm3 07/22/17 04:12 Monocytes # (Manual) 0.2 K/mm3 (0.0-0.8) 07/22/17 04:12 Eosinophils # (Manual) 0.0 K/mm3 (0.0-0.4) 07/22/17 04:12 Basophils # (Manual) 0.0 K/mm3 (0.0-0.1) 07/22/17 04:12 Metamyelocytes # 0.0 K/mm3 07/22/17 04:12 Myelocytes # 0.0 K/mm3 07/22/17 04:12 Promyelocytes # 0.0 K/mm3 07/22/17 04:12 Blast Cells # 0.0 K/mm3 07/22/17 04:12 WBC Morphology Not Reportable 07/22/17 04:12 Hypersegmented Neuts Not Reportable 07/22/17 04:12 Hyposegmented Neuts Not Reportable 07/22/17 04:12 Hypogranular Neuts Not Reportable 07/22/17 04:12 Smudge Cells Not Reportable 07/22/17 04:12 Toxic Granulation Not Reportable 07/22/17 04:12 Toxic Vacuolation Not Reportable 07/22/17 04:12 Dohle Bodies Not Reportable 07/22/17 04:12 Pelger-Huet Anomaly Not Reportable 07/22/17 04:12 Kristin Rods Not Reportable 07/22/17 04:12 Platelet Estimate Consistent w auto 07/22/17 04:12 Clumped Platelets Not Reportable 07/22/17 04:12 Plt Clumps, EDTA Not Reportable 07/22/17 04:12 Large Platelets Not Reportable 07/22/17 04:12 Giant Platelets Not Reportable 07/22/17 04:12 Platelet Satelliting Not Reportable 07/22/17 04:12 Plt Morphology Comment Not Reportable 07/22/17 04:12 RBC Morphology Not Reportable 07/22/17 04:12 Dimorphic RBCs Not Reportable 07/22/17 04:12 Polychromasia Not Reportable 07/22/17 04:12 Hypochromasia Not Reportable 07/22/17 04:12 Poikilocytosis Not Reportable 07/22/17 04:12 Anisocytosis Not Reportable 07/22/17 04:12 Microcytosis Not Reportable 07/22/17 04:12 Macrocytosis Not Reportable 07/22/17 04:12 Spherocytes Not Reportable 07/22/17 04:12 Pappenheimer Bodies Not Reportable 07/22/17 04:12 Sickle Cells Not Reportable 07/22/17 04:12 Target Cells Not Reportable 07/22/17 04:12 Tear Drop Cells Not Reportable 07/22/17 04:12 Ovalocytes Not Reportable 07/22/17 04:12 Helmet Cells Not Reportable 07/22/17 04:12 [place] Bodies Not Reportable 07/22/17 04:12 Edison Rings Not Reportable 07/22/17 04:12 [place] Cells Not Reportable 07/22/17 04:12 Bite Cells Not Reportable 07/22/17 04:12 Crenated Cell Not Reportable 07/22/17 04:12 Elliptocytes Not Reportable 07/22/17 04:12 Acanthocytes (Spur) Not Reportable 07/22/17 04:12 Rouleaux Not Reportable 07/22/17 04:12 Hemoglobin C Crystals Not Reportable 07/22/17 04:12 Schistocytes Not Reportable 07/22/17 04:12 Malaria parasites Not Reportable 07/22/17 04:12 Wilver Bodies Not Reportable 07/22/17 04:12 Hem Pathologist Commnt No 07/22/17 04:12 PT 14.6 Sec. (12.2-14.9) 07/20/17 18:19 INR 1.08 (0.87-1.13) 07/20/17 18:19 VBG pH 7.413 (7.320-7.420) 07/20/17 18:19 Sodium 136 mmol/L (137-145) L 07/22/17 04:12 Potassium 4.4 mmol/L (3.6-5.0) D 07/22/17 04:12 Chloride 104.1 mmol/L (98-107) 07/22/17 04:12 Carbon Dioxide 20 mmol/L (22-30) L 07/22/17 04:12 Anion Gap 16 mmol/L 07/22/17 04:12 BUN 27 mg/dL (7-17) H 07/22/17 04:12 Creatinine 1.1 mg/dL (0.7-1.2) 07/22/17 04:12 Estimated GFR > 60 ml/min 07/22/17 04:12 BUN/Creatinine Ratio 25 % 07/22/17 04:12 Glucose 134 mg/dL (65-100) H 07/22/17 04:12 POC Glucose 115 (70-105) H 07/22/17 17:03 Hemoglobin A1c 5.4 % (4-6) 07/21/17 00:54 Lactic Acid 0.80 mmol/L (0.7-2.0) 07/20/17 21:02 Calcium 8.2 mg/dL (8.4-10.2) L D 07/22/17 04:12 Phosphorus 2.70 mg/dL (2.5-4.5) 07/22/17 04:12 Magnesium 1.90 mg/dL (1.7-2.3) 07/22/17 04:12 Total Bilirubin 0.30 mg/dL (0.1-1.2) 07/21/17 00:54 AST 49 units/L (5-40) H 07/21/17 00:54 ALT 42 units/L (7-56) 07/21/17 00:54 Alkaline Phosphatase 124 units/L (35-129) 07/21/17 00:54 Total Creatine Kinase 175 units/L (30-135) H 07/21/17 09:22 Total Protein 5.3 g/dL (6.3-8.2) L D 07/21/17 00:54 Albumin 2.0 g/dL (3.9-5) L 07/21/17 00:54 Albumin/Globulin Ratio 0.6 % 07/21/17 00:54 Urine Color Yellow (Yellow) 07/20/17 21:33 Urine Turbidity Clear (Clear) 07/20/17 21:33 Urine pH 6.0 (5.0-7.0) 07/20/17 21:33 Ur Specific [place] 1.015 (1.003-1.030) 07/20/17 21:33 Urine Protein 30 mg/dl mg/dL (Negative) 07/20/17 21:33 Urine Glucose (UA) Neg mg/dL (Negative) 07/20/17 21:33 Urine Ketones Neg mg/dL (Negative) 07/20/17 21:33 Urine Blood Neg (Negative) 07/20/17 21:33 Urine Nitrite Neg (Negative) 07/20/17 21:33 Urine Bilirubin Neg (Negative) 07/20/17 21:33 Urine Urobilinogen 2.0 mg/dL (<2.0) 07/20/17 21:33 Ur Leukocyte Esterase Neg (Negative) 07/20/17 21:33 Urine WBC (Auto) 1.0 /HPF (0.0-6.0) 07/20/17 21:33 Urine RBC (Auto) 2.0 /HPF (0.0-6.0) 07/20/17 21:33 Hepatitis A IgM Ab Non-reactive (NonReactive) 07/21/17 09:22 Hep Bs Antigen Non-reactive (Negative) 07/21/17 09:22 Hep B Core IgM Ab Non-reactive (NonReactive) 07/21/17 09:22 Hepatitis C Antibody Non-reactive (NonReactive) 07/21/17 09:22
[2017-07-22] MEDS ORDERED: TAMIFLU PO SCH (14:00)
[2017-07-22] MEDS: NACL 0.9% 1000 ML 1,000 ML IV SCH (18:01)
--- NOTE | 2017-07-22 19:18 | Consultation ---
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 Patient's did not note any fever, chills, cough, runny nose, abdominal pain, N/V/D at home. She has a PEG tube for feedings. In the ED, temp 103.2, HR 135, R20, O2 sat 99%, BP 140/90/ WBC 5.6. Hg 12.6. Plat 172. Sodium 136. K 5.3. Creat 1.4. AST 73. ALT 63. UA neg. Viral hepatitis panel neg. CXR neg. Influenza antigen neg. Microbiology: Blood cultures: 07/20 ngtd Influenza 07/20 neg Current Antimicrobials: Tamiflu 07/22 Previous Antimicrobials: Past History Past Medical History: atrial fib, heart failure, hypertension, hyperlipidemia, stroke Past Surgical History: Other (Peg tube) Social history: smoking (in the past) Family history: hypertension Medications and Allergies Allergies Allergy/AdvReac Type Severity Reaction Status Date / Time No Known Allergies Allergy Verified 03/26/17 07:39 Home Medications Medication Instructions Recorded Confirmed Last Taken Type Metoprolol [Lopressor] 12.5 mg PO DAILY 03/26/17 07/20/17 07/06/17 History hydrALAZINE [Apresoline] 25 mg PO TID 03/26/17 07/20/17 07/06/17 History AtorvaSTATin [Lipitor] 40 mg PO QHS 07/20/17 07/20/17 07/06/17 History Rivaroxaban [Xarelto] 15 mg PO DAILY 07/20/17 07/20/17 07/06/17 History Active Meds: Active Medications Acetaminophen (Tylenol) 650 mg PO Q4H PRN PRN Reason: Pain MILD(1-3)/Fever >100.5/BURGESS Last Admin: 07/21/17 16:09 Dose: 650 mg Lipase/Protease/Amylase (Pancreaze Dr 10,500 Unit) 1 each FEEDTUBE PRN PRN PRN Reason: For Clogged Feeding Tube Bisacodyl (Dulcolax) 10 mg ND QDAY PRN PRN Reason: Constipation unrelieved by MOM Famotidine (Pepcid) 10 mg PO BID [facility] Hydralazine HCl (Apresoline) 25 mg PO TID [facility] Last Admin: 07/22/17 08:35 Dose: 25 mg Hydromorphone HCl (Dilaudid) 0.5 mg IV Q3H PRN PRN Reason: Pain , Severe (7-10) Sodium Chloride (Nacl 0.9% 1000 Ml) 1,000 mls @ 150 mls/hr IV DIRECT [facility] Last Admin: 07/22/17 18:01 Dose: 150 mls/hr Magnesium Hydroxide (Milk Of Magnesia) 30 ml PO Q4H PRN PRN Reason: Constipation Metoprolol Tartrate (Lopressor) 12.5 mg PO DAILY [facility] Last Admin: 07/21/17 10:00 Dose: Not Given Morphine Sulfate (Morphine) 2 mg IV Q4H PRN PRN Reason: Pain, Moderate (4-6) Ondansetron HCl (Zofran) 4 mg IV Q8H PRN PRN Reason: N/V unrelieved by Reglan Oseltamivir Phosphate (Tamiflu) 75 mg PO BID [facility] Stop: 07/26/17 22:01 Rivaroxaban (Xarelto) 15 mg PO DAILY [facility] PRN Reason: Protocol Last Admin: 07/21/17 10:00 Dose: Not Given Simple Syrup (Simple Syrup) 15 ml FEEDTUBE PRN PRN PRN Reason: Hypoglycemia Simple Syrup (Simple Syrup) 30 ml FEEDTUBE PRN PRN PRN Reason: Hypoglycemia Sodium Bicarbonate (Sodium Bicarbonate) 325 mg FEEDTUBE PRN PRN PRN Reason: For Clogged Feeding Tube Physical Examination - Physical Exam Narrative exam: General appearance: alert non verbal Eyes: anicteric right sclerae edema, moist conjunctivae; no lid-lag; PERRLA HENT: Atraumatic; oropharynx limited Neck: Trachea midline; supple, no thyromegaly or lymphadenopathy Lungs: CV: RRR, + murmurs Abdomen: Soft, non-tender; no masses or hepatosplenomegaly +PEG Extremities: mildly contracted minimal edema Skin: Normal temperature, turgor and texture; no rash, ulcers or subcutaneous nodules Psych: non verbal. Neuro: alert hemiplegia Lines: - Constitutional Vitals: Vital Signs Temp Pulse Resp BP Pulse Ox 101.1 F H 111 H 20 129/86 92 07/22/17 16:20 07/22/17 16:20 07/22/17 16:20 07/22/17 16:20 07/22/17 16:20 Temperature -Last 24 Hours Temperature 101.1 F Temperature 99.9 F Temperature 98.3 F Temperature 100.5 F Temperature 100.1 F Temperature 99.0 F Results - Labs CBC & Chem 7: 07/22/17 04:12 07/22/17 04:12 Labs: Abnormal lab results 07/22/17 07/22/17 07/22/17 Range/Units 04:12 04:12 06:56 WBC 2.8 L (4.5-11.0) K/mm3 RDW 17.5 H (13.2-15.2) % Seg Neutrophils # Man 1.6 L (1.8-7.7) K/mm3 Lymphocytes # (Manual) 0.6 L (1.2-5.4) K/mm3 Sodium 136 L (137-145) mmol/L Carbon Dioxide 20 L (22-30) mmol/L BUN 27 H (7-17) mg/dL Glucose 134 H (65-100) mg/dL POC Glucose 152 H (70-105) Calcium 8.2 L D (8.4-10.2) mg/dL 07/22/17 07/22/17 Range/Units 11:20 17:03 WBC (4.5-11.0) K/mm3 RDW (13.2-15.2) % Seg Neutrophils # Man (1.8-7.7) K/mm3 Lymphocytes # (Manual) (1.2-5.4) K/mm3 Sodium (137-145) mmol/L Carbon Dioxide (22-30) mmol/L BUN (7-17) mg/dL Glucose (65-100) mg/dL POC Glucose 167 H 115 H (70-105) Calcium (8.4-10.2) mg/dL Assessment and Plan Assessment: 1) SIRS: Present on admission, manifested by fever, tachycardi. Etiology Unclear. DDx likely more Influenza vs asp pneumonia 2) Presumed influenza: despite influenza antigen negative (false negative are common) 3) Recent CVA with dysathria and dysphagia s/p PEG 4) Hyponatremia 5) Elevated LFTs: from viral infection, viral hepatitis panel neg Plan: -follow-up blood cultures -check C-reactive protein (CRP) -check influenza antigen PCR in nasopharinx -repeat CXR -continue tamiflu - day 1 of 5 -add clindamycin - will stop if repeat CXR neg -monitor fever which is already improving -droplets precautions Thank you for your consultation, will follow up with you. Nahomi Hadley MD Infectious Diseases Specialist [facility] [phone] O [phone]
[2017-07-22] MEDS: CLEOCIN 600 MG/50 mL 600 MG/50 ML BAG IV SCH (21:46)
[2017-07-22] MEDS ORDERED: TYLENOL PO PRN (22:00)
[2017-07-23] MEDS: TAMIFLU PO SCH ×3 (00:23→23:13)
--- NOTE | 2017-07-23 02:20 | XRay Report ---
FINAL REPORT PROCEDURE: XR CHEST ROUTINE 2V TECHNIQUE: PA and lateral chest radiographs were obtained. CPT 00685 HISTORY: eval for asp pneumonia COMPARISON: 07/20/2017 FINDINGS: Heart: Normal. Mediastinum/Vessels: Normal. Lungs/Pleural space: Mild atelectasis bilateral lower lungs. No effusion or pneumothorax. Bony thorax: No acute osseous abnormality. Other: IMPRESSION: Mild atelectasis bilateral lower lungs..
[2017-07-23] MEDS: NACL 0.9% 1000 ML 1,000 ML IV SCH ×2 (06:22→21:51)
[2017-07-23] MEDS: CLEOCIN 600 MG/50 mL 600 MG/50 ML BAG IV SCH (06:22)
[2017-07-23] MEDS: LOPRESSOR PO SCH (09:34)
[2017-07-23] MEDS: APRESOLINE PO SCH ×3 (09:35→21:46)
[2017-07-23] MEDS: XARELTO PO SCH (09:36)
[2017-07-23] MEDS: PEPCID PO SCH ×2 (09:36→21:44)
--- NOTE | 2017-07-23 10:32 | Progress Note ---
Assessment and Plan Assessment: 1) SIRS: still fever, tachycardia. Etiology Unclear. Suspicion for Influenza -repeat CX-ray 07/22 showed mild atelectasis in bilateral lungs -blood cultures 07/20 ngtd -CRP = 2.5 2) Presumed influenza: despite influenza antigen negative (false negative are common) 3) Recent CVA with dysathria and dysphagia s/p PEG 4) Hyponatremia, not better 5) Elevated LFTs: from viral infection, viral hepatitis panel neg Plan: -check influenza antigen PCR in nasopharinx -pending, it takes 3 days to result -continue tamiflu - day 2 of 5, pt refused todays dose -stop clindamycin - in view of negative c x-ray -continue to monitor fever -droplets precautions -if no fever for 48 hrs ok to discharge Thank you for your consultation, will follow up with you. Bob Cordero NP-C for Dr. Nahomi Hadley MD Infectious Diseases Specialist [facility] M [phone] O [phone] Subjective Date of service: 07/23/17 Principal diagnosis: Acute kidney injury, myopathy and transaminitis Interval history: spouse stated that he doesn't want his taking any tamiflu if she does not have the flu Microbiology: Blood cultures: 07/20 ngtd Influenza 07/20 neg Current Antimicrobials: Tamiflu 07/22 Previous Antimicrobials: clindamycin 07/22 Objective - Exam Narrative Exam: General appearance: alert Eyes: anicteric right sclerae edema, moist conjunctivae; no lid-lag; PERRLA HENT: Atraumatic; oropharynx limited Neck: Trachea midline; supple, no thyromegaly or lymphadenopathy Lungs: CV: RRR, + murmurs Abdomen: Soft, non-tender; no masses or hepatosplenomegaly +PEG Extremities: mildly contracted minimal edema Skin: Normal temperature, turgor and texture; no rash, ulcers or subcutaneous nodules Psych: crying Neuro: alert hemiplegia Lines: - Constitutional Vitals: Vital Signs Temp Pulse Resp BP Pulse Ox 100.3 F H 95 H 18 109/76 100 07/23/17 07:56 07/23/17 07:56 07/23/17 07:56 07/23/17 07:56 07/23/17 07:56 Temperature -Last 24 Hours Temperature 100.3 F Temperature 98.6 F Temperature 98.8 F Temperature 100.1 F Temperature 101.1 F Temperature 99.9 F - Labs CBC & Chem 7: 07/22/17 04:12 07/22/17 04:12 Labs: Abnormal lab results 07/22/17 07/22/17 07/22/17 Range/Units 11:20 17:03 19:56 POC Glucose 167 H 115 H (70-105) C-Reactive Protein 2.50 H (0.00-1.30) mg/dL 07/23/17 Range/Units 00:20 POC Glucose 112 H (70-105) C-Reactive Protein (0.00-1.30) mg/dL
--- NOTE | 2017-07-23 14:23 | Progress Note ---
<ALLYN ROSADO - Last Filed: 07/23/17 14:13> Assessment and Plan Assessment and plan: 61-year-old female with past medical history of stroke with residual dysphagia and left sided residual weakness especially left upper extremity who is ambulatory now at baseline is presenting with weakness and difficulty standing . Patient's states that starting the day before hospital admission she was unable to stand on her own and he noticed that she was generally weak. Patient is getting tube feeds because of dysphagia. Patient's states that he doesn't think that she is getting enough nutrients at this time. Patient was weak and dizzy upon standing day of admission and fell backwards. Patient states she has had a dry mouth he denies any nausea vomiting diarrhea fevers or chills. Patient's states that her weakness in her arms and legs relatively at baseline but she is unable to walk without assistance.No fever or chills. Sepsis likely viral Start IV antibiotics, antipyretics, supportive care, Flu antigen neg Patient refused Tamiflu ID following recommendations: -check influenza antigen PCR in nasopharinx -pending, it takes 3 days to result -continue tamiflu - day 2 of , pt refused todays dose -stop clindamycin - in view of negative c x-ray -continue to monitor fever -droplets precautions -if no fever for 48 hrs ok to discharge DENISE (acute kidney injury) Possible ATN /Vasomotor nephropathy BUN/creatinine stable for now will continue to monitor improved from 41/1.4-to 26/0.9 Hyperglycemia A1C5.4, likely secondary to D5 administration, D5 d/cd Hyperkalemia Now stable continue to monitor, corrected with IV fluids, Mild. No Kayexalate or calcium gluconate given Dehydration from Continue iV fluids for now CHF (congestive heart failure) Echo 1017 showed ejection fraction 10-15% with combined systolic and diastolic heart failure Continue Beta Teresa Strict I&O's and daily weights Low-sodium/cardiac diet/fluid restriction 1200mL in 24 hours. Closely monitor electrolytes CVA (cerebral vascular accident) With Left sided weakness CT head refused, PT following HTN (hypertension) Cont antihypertensives Hyperlipidemia Stop statins--- may be causing myopathy. Transaminitis Secondary to statins. Stop statins. negative hepatitis panel to make sure there is no hepatitis B or C. liver enzymes improved Hypokalemia Stable now, Supplement with potassium PRN Severe Malnutrition Nutrition consulted DVT prophylaxis Patient already on xarelto History Interval history: Patient was seen and examined with at bedside. Follow up on chief complaint of weakness. She denies chest pain, shortness of breath, nausea vomiting. Labs and nursing notes reviewed. Hospitalist Physical - Constitutional Vitals: Temp Pulse Resp BP Pulse Ox 98.1 F 80 18 109/74 100 07/23/17 12:23 07/23/17 12:23 07/23/17 12:23 07/23/17 12:23 07/23/17 12:23 General appearance: Present: no acute distress, well-nourished - EENT Eyes: Present: PERRL, EOM intact ENT: hearing intact, clear oral mucosa, poor dentition - Neck Neck: Present: supple, normal ROM - Respiratory Respiratory effort: normal Respiratory: bilateral: CTA - Cardiovascular Rhythm: regular Heart Sounds: Present: S1 & S2 - Extremities Extremities: no ischemia, No edema - Abdominal General gastrointestinal: soft, non-tender, non-distended - Integumentary Integumentary: Present: clear, warm, dry - Psychiatric Psychiatric: cooperative - Neurologic Neurologic: focal deficits, moves all extremities (generalized weakness left greater than right) - Allied Health Allied health notes reviewed: nursing Results - Labs CBC & Chem 7: 07/22/17 04:12 07/22/17 04:12 Labs: Laboratory Last Values WBC 2.8 K/mm3 (4.5-11.0) L 07/22/17 04:12 RBC 4.63 M/mm3 (3.65-5.03) 07/22/17 04:12 Hgb 13.3 gm/dl (10.1-14.3) D 07/22/17 04:12 Hct 39.9 % (30.3-42.9) D 07/22/17 04:12 MCV 86 fl (79-97) 07/22/17 04:12 MCH 29 pg (28-32) 07/22/17 04:12 MCHC 33 % (30-34) 07/22/17 04:12 RDW 17.5 % (13.2-15.2) H 07/22/17 04:12 Plt Count 186 K/mm3 (140-440) 07/22/17 04:12 Lymph % (Auto) 5.1 % (13.4-35.0) L 07/20/17 14:51 Waller % (Auto) Design Agent 07/22/17 04:12 Eos % (Auto) 0.6 % (0.0-4.3) 07/20/17 14:51 Baso % (Auto) 0.3 % (0.0-1.8) 07/20/17 14:51 Lymph # 0.3 K/mm3 (1.2-5.4) L 07/20/17 14:51 Waller # 0.9 K/mm3 (0.0-0.8) H 07/20/17 14:51 Eos # 0.0 K/mm3 (0.0-0.4) 07/20/17 14:51 Baso # 0.0 K/mm3 (0.0-0.1) 07/20/17 14:51 Add Manual Diff Complete 07/22/17 04:12 Total Counted 100 07/22/17 04:12 Seg Neutrophils % 78.6 % (40.0-70.0) H 07/20/17 14:51 Seg Neuts % (Manual) 58.0 % (40.0-70.0) 07/22/17 04:12 Band Neutrophils % 13.0 % 07/22/17 04:12 Lymphocytes % (Manual) 21.0 % (13.4-35.0) 07/22/17 04:12 Reactive Lymphs % (Man) 0 % 07/22/17 04:12 Monocytes % (Manual) 7.0 % (0.0-7.3) 07/22/17 04:12 Eosinophils % (Manual) 0 % (0.0-4.3) 07/22/17 04:12 Basophils % (Manual) 1.0 % (0.0-1.8) 07/22/17 04:12 Metamyelocytes % 0 % 07/22/17 04:12 Myelocytes % 0 % 07/22/17 04:12 Promyelocytes % 0 % 07/22/17 04:12 Blast Cells % 0 % 07/22/17 04:12 Nucleated RBC % Not Reportable 07/22/17 04:12 Seg Neutrophils # 4.4 K/mm3 (1.8-7.7) 07/20/17 14:51 Seg Neutrophils # Man 1.6 K/mm3 (1.8-7.7) L 07/22/17 04:12 Band Neutrophils # 0.4 K/mm3 07/22/17 04:12 Lymphocytes # (Manual) 0.6 K/mm3 (1.2-5.4) L 07/22/17 04:12 Abs React Lymphs (Man) 0.0 K/mm3 07/22/17 04:12 Monocytes # (Manual) 0.2 K/mm3 (0.0-0.8) 07/22/17 04:12 Eosinophils # (Manual) 0.0 K/mm3 (0.0-0.4) 07/22/17 04:12 Basophils # (Manual) 0.0 K/mm3 (0.0-0.1) 07/22/17 04:12 Metamyelocytes # 0.0 K/mm3 07/22/17 04:12 Myelocytes # 0.0 K/mm3 07/22/17 04:12 Promyelocytes # 0.0 K/mm3 07/22/17 04:12 Blast Cells # 0.0 K/mm3 07/22/17 04:12 WBC Morphology Not Reportable 07/22/17 04:12 Hypersegmented Neuts Not Reportable 07/22/17 04:12 Hyposegmented Neuts Not Reportable 07/22/17 04:12 Hypogranular Neuts Not Reportable 07/22/17 04:12 Smudge Cells Not Reportable 07/22/17 04:12 Toxic Granulation Not Reportable 07/22/17 04:12 Toxic Vacuolation Not Reportable 07/22/17 04:12 Dohle Bodies Not Reportable 07/22/17 04:12 Pelger-Huet Anomaly Not Reportable 07/22/17 04:12 Kristin Rods Not Reportable 07/22/17 04:12 Platelet Estimate Consistent w auto 07/22/17 04:12 Clumped Platelets Not Reportable 07/22/17 04:12 Plt Clumps, EDTA Not Reportable 07/22/17 04:12 Large Platelets Not Reportable 07/22/17 04:12 Giant Platelets Not Reportable 07/22/17 04:12 Platelet Satelliting Not Reportable 07/22/17 04:12 Plt Morphology Comment Not Reportable 07/22/17 04:12 RBC Morphology Not Reportable 07/22/17 04:12 Dimorphic RBCs Not Reportable 07/22/17 04:12 Polychromasia Not Reportable 07/22/17 04:12 Hypochromasia Not Reportable 07/22/17 04:12 Poikilocytosis Not Reportable 07/22/17 04:12 Anisocytosis Not Reportable 07/22/17 04:12 Microcytosis Not Reportable 07/22/17 04:12 Macrocytosis Not Reportable 07/22/17 04:12 Spherocytes Not Reportable 07/22/17 04:12 Pappenheimer Bodies Not Reportable 07/22/17 04:12 Sickle Cells Not Reportable 07/22/17 04:12 Target Cells Not Reportable 07/22/17 04:12 Tear Drop Cells Not Reportable 07/22/17 04:12 Ovalocytes Not Reportable 07/22/17 04:12 Helmet Cells Not Reportable 07/22/17 04:12 [place] Bodies Not Reportable 07/22/17 04:12 [place] Rings Not Reportable 07/22/17 04:12 [place] Cells Not Reportable 07/22/17 04:12 Bite Cells Not Reportable 07/22/17 04:12 Crenated Cell Not Reportable 07/22/17 04:12 Elliptocytes Not Reportable 07/22/17 04:12 Acanthocytes (Spur) Not Reportable 07/22/17 04:12 Rouleaux Not Reportable 07/22/17 04:12 Hemoglobin C Crystals Not Reportable 07/22/17 04:12 Schistocytes Not Reportable 07/22/17 04:12 Malaria parasites Not Reportable 07/22/17 04:12 Wilver Bodies Not Reportable 07/22/17 04:12 Hem Pathologist Commnt No 07/22/17 04:12 PT 14.6 Sec. (12.2-14.9) 07/20/17 18:19 INR 1.08 (0.87-1.13) 07/20/17 18:19 VBG pH 7.413 (7.320-7.420) 07/20/17 18:19 Sodium 136 mmol/L (137-145) L 07/22/17 04:12 Potassium 4.4 mmol/L (3.6-5.0) D 07/22/17 04:12 Chloride 104.1 mmol/L (98-107) 07/22/17 04:12 Carbon Dioxide 20 mmol/L (22-30) L 07/22/17 04:12 Anion Gap 16 mmol/L 07/22/17 04:12 BUN 27 mg/dL (7-17) H 07/22/17 04:12 Creatinine 1.1 mg/dL (0.7-1.2) 07/22/17 04:12 Estimated GFR > 60 ml/min 07/22/17 04:12 BUN/Creatinine Ratio 25 % 07/22/17 04:12 Glucose 134 mg/dL (65-100) H 07/22/17 04:12 POC Glucose 138 (70-105) H 07/23/17 12:07 Hemoglobin A1c 5.4 % (4-6) 07/21/17 00:54 Lactic Acid 0.80 mmol/L (0.7-2.0) 07/20/17 21:02 Calcium 8.2 mg/dL (8.4-10.2) L D 07/22/17 04:12 Phosphorus 2.70 mg/dL (2.5-4.5) 07/22/17 04:12 Magnesium 1.90 mg/dL (1.7-2.3) 07/22/17 04:12 Total Bilirubin 0.30 mg/dL (0.1-1.2) 07/21/17 00:54 AST 49 units/L (5-40) H 07/21/17 00:54 ALT 42 units/L (7-56) 07/21/17 00:54 Alkaline Phosphatase 124 units/L (35-129) 07/21/17 00:54 Total Creatine Kinase 175 units/L (30-135) H 07/21/17 09:22 C-Reactive Protein 2.50 mg/dL (0.00-1.30) H 07/22/17 19:56 Total Protein 5.3 g/dL (6.3-8.2) L D 07/21/17 00:54 Albumin 2.0 g/dL (3.9-5) L 07/21/17 00:54 Albumin/Globulin Ratio 0.6 % 07/21/17 00:54 Urine Color Yellow (Yellow) 07/20/17 21:33 Urine Turbidity Clear (Clear) 07/20/17 21:33 Urine pH 6.0 (5.0-7.0) 07/20/17 21:33 Ur Specific [place] 1.015 (1.003-1.030) 07/20/17 21:33 Urine Protein 30 mg/dl mg/dL (Negative) 07/20/17 21:33 Urine Glucose (UA) Neg mg/dL (Negative) 07/20/17 21:33 Urine Ketones Neg mg/dL (Negative) 07/20/17 21:33 Urine Blood Neg (Negative) 07/20/17 21:33 Urine Nitrite Neg (Negative) 07/20/17 21:33 Urine Bilirubin Neg (Negative) 07/20/17 21:33 Urine Urobilinogen 2.0 mg/dL (<2.0) 07/20/17 21:33 Ur Leukocyte Esterase Neg (Negative) 07/20/17 21:33 Urine WBC (Auto) 1.0 /HPF (0.0-6.0) 07/20/17 21:33 Urine RBC (Auto) 2.0 /HPF (0.0-6.0) 07/20/17 21:33 Hepatitis A IgM Ab Non-reactive (NonReactive) 07/21/17 09:22 Hep Bs Antigen Non-reactive (Negative) 07/21/17 09:22 Hep B Core IgM Ab Non-reactive (NonReactive) 07/21/17 09:22 Hepatitis C Antibody Non-reactive (NonReactive) 07/21/17 09:22 <BETHANY PAVON R - Last Filed: 07/23/17 16:20> Assessment and Plan Assessment and plan: I saw and evaluated the patient. I agree with the findings and the plan of care as documented in the PA's~note, D/W , He refused Tamiflu, no one told me the side effects. When I tried to explain to him the side effect, benefits but he cut me off. I am trying to explain, but he starts yelling and doesn't listen to reason. He refused CT scan , he refused LP to further explain the fever. "we aint going on ifs, if this, if that". He also refused Xarelto because no antidote, he maybe wants Warfarin. When I tried to explain every medication side effect, states, "I already know the side effects, if I ain't know I wouldn't speak on it." He says he researched the medications. He wants to take home. He said she never been on Aspirin. 02 weaned off. Hospitalist Physical - Constitutional Vitals: Temp Pulse Resp BP Pulse Ox 98.8 F 84 16 91/76 99 07/23/17 15:29 07/23/17 15:29 07/23/17 15:29 07/23/17 15:29 07/23/17 15:29 Results - Labs CBC & Chem 7: 07/22/17 04:12 07/22/17 04:12 Labs: Laboratory Last Values WBC 2.8 K/mm3 (4.5-11.0) L 07/22/17 04:12 RBC 4.63 M/mm3 (3.65-5.03) 07/22/17 04:12 Hgb 13.3 gm/dl (10.1-14.3) D 07/22/17 04:12 Hct 39.9 % (30.3-42.9) D 07/22/17 04:12 MCV 86 fl (79-97) 07/22/17 04:12 MCH 29 pg (28-32) 07/22/17 04:12 MCHC 33 % (30-34) 07/22/17 04:12 RDW 17.5 % (13.2-15.2) H 07/22/17 04:12 Plt Count 186 K/mm3 (140-440) 07/22/17 04:12 Lymph % (Auto) 5.1 % (13.4-35.0) L 07/20/17 14:51 Waller % (Auto) Design Agent 07/22/17 04:12 Eos % (Auto) 0.6 % (0.0-4.3) 07/20/17 14:51 Baso % (Auto) 0.3 % (0.0-1.8) 07/20/17 14:51 Lymph # 0.3 K/mm3 (1.2-5.4) L 07/20/17 14:51 Waller # 0.9 K/mm3 (0.0-0.8) H 07/20/17 14:51 Eos # 0.0 K/mm3 (0.0-0.4) 07/20/17 14:51 Baso # 0.0 K/mm3 (0.0-0.1) 07/20/17 14:51 Add Manual Diff Complete 07/22/17 04:12 Total Counted 100 07/22/17 04:12 Seg Neutrophils % 78.6 % (40.0-70.0) H 07/20/17 14:51 Seg Neuts % (Manual) 58.0 % (40.0-70.0) 07/22/17 04:12 Band Neutrophils % 13.0 % 07/22/17 04:12 Lymphocytes % (Manual) 21.0 % (13.4-35.0) 07/22/17 04:12 Reactive Lymphs % (Man) 0 % 07/22/17 04:12 Monocytes % (Manual) 7.0 % (0.0-7.3) 07/22/17 04:12 Eosinophils % (Manual) 0 % (0.0-4.3) 07/22/17 04:12 Basophils % (Manual) 1.0 % (0.0-1.8) 07/22/17 04:12 Metamyelocytes % 0 % 07/22/17 04:12 Myelocytes % 0 % 07/22/17 04:12 Promyelocytes % 0 % 07/22/17 04:12 Blast Cells % 0 % 07/22/17 04:12 Nucleated RBC % Not Reportable 07/22/17 04:12 Seg Neutrophils # 4.4 K/mm3 (1.8-7.7) 07/20/17 14:51 Seg Neutrophils # Man 1.6 K/mm3 (1.8-7.7) L 07/22/17 04:12 Band Neutrophils # 0.4 K/mm3 07/22/17 04:12 Lymphocytes # (Manual) 0.6 K/mm3 (1.2-5.4) L 07/22/17 04:12 Abs React Lymphs (Man) 0.0 K/mm3 07/22/17 04:12 Monocytes # (Manual) 0.2 K/mm3 (0.0-0.8) 07/22/17 04:12 Eosinophils # (Manual) 0.0 K/mm3 (0.0-0.4) 07/22/17 04:12 Basophils # (Manual) 0.0 K/mm3 (0.0-0.1) 07/22/17 04:12 Metamyelocytes # 0.0 K/mm3 07/22/17 04:12 Myelocytes # 0.0 K/mm3 07/22/17 04:12 Promyelocytes # 0.0 K/mm3 07/22/17 04:12 Blast Cells # 0.0 K/mm3 07/22/17 04:12 WBC Morphology Not Reportable 07/22/17 04:12 Hypersegmented Neuts Not Reportable 07/22/17 04:12 Hyposegmented Neuts Not Reportable 07/22/17 04:12 Hypogranular Neuts Not Reportable 07/22/17 04:12 Smudge Cells Not Reportable 07/22/17 04:12 Toxic Granulation Not Reportable 07/22/17 04:12 Toxic Vacuolation Not Reportable 07/22/17 04:12 Dohle Bodies Not Reportable 07/22/17 04:12 Pelger-Huet Anomaly Not Reportable 07/22/17 04:12 Kristin Rods Not Reportable 07/22/17 04:12 Platelet Estimate Consistent w auto 07/22/17 04:12 Clumped Platelets Not Reportable 07/22/17 04:12 Plt Clumps, EDTA Not Reportable 07/22/17 04:12 Large Platelets Not Reportable 07/22/17 04:12 Giant Platelets Not Reportable 07/22/17 04:12 Platelet Satelliting Not Reportable 07/22/17 04:12 Plt Morphology Comment Not Reportable 07/22/17 04:12 RBC Morphology Not Reportable 07/22/17 04:12 Dimorphic RBCs Not Reportable 07/22/17 04:12 Polychromasia Not Reportable 07/22/17 04:12 Hypochromasia Not Reportable 07/22/17 04:12 Poikilocytosis Not Reportable 07/22/17 04:12 Anisocytosis Not Reportable 07/22/17 04:12 Microcytosis Not Reportable 07/22/17 04:12 Macrocytosis Not Reportable 07/22/17 04:12 Spherocytes Not Reportable 07/22/17 04:12 Pappenheimer Bodies Not Reportable 07/22/17 04:12 Sickle Cells Not Reportable 07/22/17 04:12 Target Cells Not Reportable 07/22/17 04:12 Tear Drop Cells Not Reportable 07/22/17 04:12 Ovalocytes Not Reportable 07/22/17 04:12 Helmet Cells Not Reportable 07/22/17 04:12 [place] Bodies Not Reportable 07/22/17 04:12 [place] Rings Not Reportable 07/22/17 04:12 [place] Cells Not Reportable 07/22/17 04:12 Bite Cells Not Reportable 07/22/17 04:12 Crenated Cell Not Reportable 07/22/17 04:12 Elliptocytes Not Reportable 07/22/17 04:12 Acanthocytes (Spur) Not Reportable 07/22/17 04:12 Rouleaux Not Reportable 07/22/17 04:12 Hemoglobin C Crystals Not Reportable 07/22/17 04:12 Schistocytes Not Reportable 07/22/17 04:12 Malaria parasites Not Reportable 07/22/17 04:12 Wilver Bodies Not Reportable 07/22/17 04:12 Hem Pathologist Commnt No 07/22/17 04:12 PT 14.6 Sec. (12.2-14.9) 07/20/17 18:19 INR 1.08 (0.87-1.13) 07/20/17 18:19 VBG pH 7.413 (7.320-7.420) 07/20/17 18:19 Sodium 136 mmol/L (137-145) L 07/22/17 04:12 Potassium 4.4 mmol/L (3.6-5.0) D 07/22/17 04:12 Chloride 104.1 mmol/L (98-107) 07/22/17 04:12 Carbon Dioxide 20 mmol/L (22-30) L 07/22/17 04:12 Anion Gap 16 mmol/L 07/22/17 04:12 BUN 27 mg/dL (7-17) H 07/22/17 04:12 Creatinine 1.1 mg/dL (0.7-1.2) 07/22/17 04:12 Estimated GFR > 60 ml/min 07/22/17 04:12 BUN/Creatinine Ratio 25 % 07/22/17 04:12 Glucose 134 mg/dL (65-100) H 07/22/17 04:12 POC Glucose 138 (70-105) H 07/23/17 12:07 Hemoglobin A1c 5.4 % (4-6) 07/21/17 00:54 Lactic Acid 0.80 mmol/L (0.7-2.0) 07/20/17 21:02 Calcium 8.2 mg/dL (8.4-10.2) L D 07/22/17 04:12 Phosphorus 2.70 mg/dL (2.5-4.5) 07/22/17 04:12 Magnesium 1.90 mg/dL (1.7-2.3) 07/22/17 04:12 Total Bilirubin 0.30 mg/dL (0.1-1.2) 07/21/17 00:54 AST 49 units/L (5-40) H 07/21/17 00:54 ALT 42 units/L (7-56) 07/21/17 00:54 Alkaline Phosphatase 124 units/L (35-129) 07/21/17 00:54 Total Creatine Kinase 175 units/L (30-135) H 07/21/17 09:22 C-Reactive Protein 2.50 mg/dL (0.00-1.30) H 07/22/17 19:56 Total Protein 5.3 g/dL (6.3-8.2) L D 07/21/17 00:54 Albumin 2.0 g/dL (3.9-5) L 07/21/17 00:54 Albumin/Globulin Ratio 0.6 % 07/21/17 00:54 Urine Color Yellow (Yellow) 07/20/17 21:33 Urine Turbidity Clear (Clear) 07/20/17 21:33 Urine pH 6.0 (5.0-7.0) 07/20/17 21:33 Ur Specific [place] 1.015 (1.003-1.030) 07/20/17 21:33 Urine Protein 30 mg/dl mg/dL (Negative) 07/20/17 21:33 Urine Glucose (UA) Neg mg/dL (Negative) 07/20/17 21:33 Urine Ketones Neg mg/dL (Negative) 07/20/17 21:33 Urine Blood Neg (Negative) 07/20/17 21:33 Urine Nitrite Neg (Negative) 07/20/17 21:33 Urine Bilirubin Neg (Negative) 07/20/17 21:33 Urine Urobilinogen 2.0 mg/dL (<2.0) 07/20/17 21:33 Ur Leukocyte Esterase Neg (Negative) 07/20/17 21:33 Urine WBC (Auto) 1.0 /HPF (0.0-6.0) 07/20/17 21:33 Urine RBC (Auto) 2.0 /HPF (0.0-6.0) 07/20/17 21:33 Hepatitis A IgM Ab Non-reactive (NonReactive) 07/21/17 09:22 Hep Bs Antigen Non-reactive (Negative) 07/21/17 09:22 Hep B Core IgM Ab Non-reactive (NonReactive) 07/21/17 09:22 Hepatitis C Antibody Non-reactive (NonReactive) 07/21/17 09:22
[2017-07-23] MEDS ORDERED: XARELTO PO SCH (18:00)
[2017-07-24] MEDS: NACL 0.9% 1000 ML 1,000 ML IV SCH (08:05)
[2017-07-24] MEDS: APRESOLINE PO SCH (09:19)
[2017-07-24] MEDS: TAMIFLU PO SCH (10:00)
[2017-07-24 10:02] VITALS: BP 142/96
[2017-07-24] MEDS: PEPCID PO SCH (11:32)
[2017-07-24] MEDS: LOPRESSOR PO SCH (11:32)
--- NOTE | 2017-07-24 12:37 | Discharge Summary ---
<ALLYN ROSADO - Last Filed: 07/24/17 12:23> Providers - Providers Date of Admission: 07/20/17 15:51 Date of discharge: 07/24/17 Attending physician: BETHANY PAVON 07/21/17 07:43 Consult to Dietitian/Nutrition [CONS] Routine Physician Instructions: Reason For Exam: Reason for Consult: Write/Manage Tube Feeding 07/21/17 07:57 Physical Therapy Evaluation and Treat [CONS] Routine Comment: Reason For Exam: CVA and debility Mode of Transport?: Wheelchair 07/22/17 13:17 Consult to Physician [CONS] Routine Consulting Provider: BRENDEN SMYTH Reason For Exam: Why fever? Place consult to:: Dr Maria Notified:: yes Comment:: DR Maria here to see patient now 07/22/17 13:28 Consult to Dietitian/Nutrition [CONS] Routine Physician Instructions: Reason For Exam: Reason for Consult: Malnutrition Primary care physician: MIGEL POTTER Hospitalization Condition: Fair Pertinent studies: Initial Chest x-ray showed No acute cardiopulmonary abnormality. Repeat chest x-ray showed Mild atelectasis bilateral lower lungs. Hospital course: 61-year-old female who presented to the ER with weakness and difficulty standing. Sepsis likely viral Start IV antibiotics, antipyretics, supportive care, Flu antigen neg Patient refused Tamiflu ID following recommendations: -check influenza antigen PCR in nasopharinx -pending, it takes 3 days to result -continue tamiflu - day 2 of 5, pt refused todays dose -stop clindamycin - in view of negative c x-ray -continue to monitor fever -droplets precautions -if no fever for 48 hrs ok to discharge DENISE (acute kidney injury) Possible ATN /Vasomotor nephropathy BUN/creatinine stable for now will continue to monitor improved from 41/1.4-to 26/0.9 Hyperglycemia A1C 5.4, likely secondary to D5 administration, D5 d/cd Hyperkalemia Now stable continue to monitor, corrected with IV fluids, Mild. No Kayexalate or calcium gluconate given Dehydration from Continue iV fluids for now CHF (congestive heart failure) Echo 1017 showed ejection fraction 10-15% with combined systolic and diastolic heart failure Continue Beta Teresa Strict I&O's and daily weights Low-sodium/cardiac diet/fluid restriction 1200mL in 24 hours. Closely monitor electrolytes CVA (cerebral vascular accident) With Left sided weakness CT head refused, PT following HTN (hypertension) Cont antihypertensives Hyperlipidemia Stop statins--- may be causing myopathy. Transaminitis Low suspicion that it was secondary to statins. Statins restarted. negative hepatitis panel to make sure there is no hepatitis B or C. liver enzymes improved Hypokalemia Stable now, Supplement with potassium PRN Severe Malnutrition Nutrition consulted DVT prophylaxis Patient already on xarelto Disposition: DC/[place]-06 HOME UNDER [facility] Time spent for discharge: 35 minutes Core Measure Documentation - Palliative Care Palliative Care/ Comfort Measures: Not Applicable - Core Measures Any of the following diagnoses?: none Exam - Constitutional Vitals: Temp Pulse Resp BP Pulse Ox 98.7 F 90 18 142/96 86 07/24/17 09:42 07/24/17 09:42 07/24/17 09:42 07/24/17 09:42 07/24/17 09:42 General appearance: Present: no acute distress, well-nourished - EENT Eyes: Present: PERRL ENT: hearing intact, clear oral mucosa - Neck Neck: Present: supple, normal ROM - Respiratory Respiratory effort: normal Respiratory: bilateral: diminished - Cardiovascular Heart Sounds: Present: S1 & S2. Absent: rub, click - Extremities Extremities: pulses symmetrical, No edema Peripheral Pulses: within normal limits - Abdominal General gastrointestinal: Present: soft, non-tender, non-distended, normal bowel sounds - Integumentary Integumentary: Present: clear, warm, dry - Musculoskeletal Musculoskeletal: strength equal bilaterally, generalized weakness (L>R) - Psychiatric Psychiatric: appropriate mood/affect, cooperative - Neurologic Neurologic: CNII-XII intact, focal deficits, moves all extremities - Allied Health Allied health notes reviewed: nursing, case management Plan Activity: no driving until cleared by PCP, fall precautions, other (No strenuous activity until cleared by PCP) Follow up with: MIGEL POTTER MD [Primary Care Provider] - 7 Days Prescriptions: AtorvaSTATin [Lipitor] 40 mg PO QHS #30 tablet hydrALAZINE [Apresoline TAB] 25 mg PO TID #90 tablet Metoprolol [Lopressor TAB] 12.5 mg PO DAILY #30 tablet Rivaroxaban [Xarelto] 15 mg PO DAILY #30 tablet <BETHANY PAVON R - Last Filed: 07/24/17 13:26> Providers - Providers Date of Admission: 07/20/17 15:51 Attending physician: BETHANY PAVON 07/21/17 07:43 Consult to Dietitian/Nutrition [CONS] Routine Physician Instructions: Reason For Exam: Reason for Consult: Write/Manage Tube Feeding 07/21/17 07:57 Physical Therapy Evaluation and Treat [CONS] Routine Comment: Reason For Exam: CVA and debility Mode of Transport?: Wheelchair 07/22/17 13:17 Consult to Physician [CONS] Routine Consulting Provider: BRENDEN SMYTH Reason For Exam: Why fever? Place consult to:: Dr Maria Notified:: yes Comment:: DR Maria here to see patient now 07/22/17 13:28 Consult to Dietitian/Nutrition [CONS] Routine Physician Instructions: Reason For Exam: Reason for Consult: Malnutrition Primary care physician: MIGEL POTTER Hospitalization Hospital course: 61-year-old female with past medical history of stroke with residual dysphagia and left sided residual weakness especially left upper extremity who is ambulatory now at baseline is presenting with weakness and difficulty standing . Patient's states that starting the day before hospital admission she was unable to stand on her own and he noticed that she was generally weak. Patient is getting tube feeds because of dysphagia. Patient's states that he doesn't think that she is getting enough nutrients at this time. Patient was weak and dizzy upon standing day of admission and fell backwards. Patient states she has had a dry mouth he denies any nausea vomiting diarrhea fevers or chills. Patient's states that her weakness in her arms and legs relatively at baseline but she is unable to walk without assistance.No fever or chills. Sepsis likely viral Start IV antibiotics, antipyretics, supportive care, Flu antigen neg Patient refused Tamiflu ID following recommendations: -check influenza antigen PCR in nasopharinx -pending, it takes 3 days to result -continue tamiflu - day 2 of 5, pt refused todays dose -stop clindamycin - in view of negative c x-ray -continue to monitor fever -droplets precautions -if no fever for 48 hrs ok to discharge DENISE (acute kidney injury) Possible ATN /Vasomotor nephropathy BUN/creatinine stable for now will continue to monitor improved from 41/1.4-to 26/0.9 Hyperglycemia A1C5.4, likely secondary to D5 administration, D5 d/cd Hyperkalemia Now stable continue to monitor, corrected with IV fluids, Mild. No Kayexalate or calcium gluconate given Dehydration from Continue iV fluids for now CHF (congestive heart failure) Echo 1017 showed ejection fraction 10-15% with combined systolic and diastolic heart failure Continue Beta Teresa Strict I&O's and daily weights Low-sodium/cardiac diet/fluid restriction 1200mL in 24 hours. Closely monitor electrolytes CVA (cerebral vascular accident) With Left sided weakness CT head refused, PT following HTN (hypertension) Cont antihypertensives Hyperlipidemia Stop statins--- may be causing myopathy. Transaminitis Secondary to statins. Stop statins. negative hepatitis panel to make sure there is no hepatitis B or C. liver enzymes improved Hypokalemia Stable now, Supplement with potassium PRN Severe Malnutrition Nutrition consulted DVT prophylaxis Patient already on xarelto I saw and evaluated the patient. I agree with the findings and the plan of care as documented in the PA's~note, D/W , He refused Tamiflu, no one told me the side effects. When I tried to explain to him the side effect, benefits but he cut me off. I am trying to explain, but he starts yelling and doesn't listen to reason. He refused CT scan , he refused LP to further explain the fever. "we aint going on ifs, if this, if that". He also refused Xarelto because no antidote, he maybe wants Warfarin. When I tried to explain every medication side effect, states, "I already know the side effects, if I ain't know I wouldn't speak on it." He says he researched the medications. He wants to take home. He said she never been on Aspirin, He decided against Coumadin, stating, "Until i can fiqure out, gone ahead and give her the Xarelto" 02 weaned off. He refuses to take her home 07/23/17. Exam - Constitutional Vitals: Temp Pulse Resp BP Pulse Ox 98.7 F 90 18 142/96 86 07/24/17 09:42 07/24/17 09:42 07/24/17 09:42 07/24/17 09:42 07/24/17 09:42
== END 2017-07-24 15:53 | disposition home health service (06) | DRG 871 ==
LOC: ED 13:57 → 3A 15:51
PROVIDERS: ADMIT Internal Medicine; ATTEND Internal Medicine
DX: A41.89 Other specified sepsis (principal); E43 Unspecified severe protein-calorie malnutrition; N17.0 Acute kidney failure with tubular necrosis; Z68.1 Body mass index [BMI] 19.9 or less, adult; I69.354 Hemiplegia and hemiparesis following cerebral infarction affecting left non-dominant side; E86.0 Dehydration; I25.2 Old myocardial infarction; I11.0 Hypertensive heart disease with heart failure; I50.9 Heart failure, unspecified; Z87.891 Personal history of nicotine dependence; Z79.82 Long term (current) use of aspirin; Z82.49 Family history of ischemic heart disease and other diseases of the circulatory system; G72.9 Myopathy, unspecified; E78.5 Hyperlipidemia, unspecified; E11.65 Type 2 diabetes mellitus with hyperglycemia; E87.6 Hypokalemia
CPT/HCPCS: 36415; 71045; 71046; 80048; 80053; 80074; 81001; 82140; 82550; 82805; 82962; 83036; 83735; 84100; 85007; 85025; 85610; 86140; 87040; 87086; 87400; 93005; 93010; 96360; 96361; J1644; J7030; J7042

== ENCOUNTER 2018-07-03 11:58 | Inpatient (IN) | payer BC ==
[2018-07-03] MEDS ORDERED: ASPIRIN PO ONE (12:41)
[2018-07-03 13:24] LABS: Basophils # (Auto) 0.1 K/mm3 (0.0-0.1); Basophils % (Auto) 1.7 % (0.0-1.8); Eosinophils # (Auto) 0.1 K/mm3 (0.0-0.4); Eosinophils % (Auto) 1.2 % (0.0-4.3); Hematocrit 40.2 % (30.3-42.9); Hemoglobin 13.1 gm/dl (10.1-14.3); Lymphocytes # (Auto) 1.8 K/mm3 (1.2-5.4); Lymphocytes % (Auto) 35.8 % (13.4-35.0); Mean Corpuscular HGB Conc 33 % (30-34); Mean Corpuscular Volume 88 fl (79-97); Monocytes # (Auto) 0.4 K/mm3 (0.0-0.8); Monocytes % (Auto) 8.5 % (0.0-7.3); Platelet Count 230 K/mm3 (140-440); Red Blood Count 4.56 M/mm3 (3.65-5.03); Red Cell Distribution Width 17.4 % (13.2-15.2)
[2018-07-03 13:39] LABS: Calcium 9.4 mg/dL (8.4-10.2)
--- NOTE | 2018-07-03 13:39 | Emergency Department Report ---
HPI - General Chief Complaint: High BP Time Seen by Provider: 07/03/18 13:23 - HPI HPI: Room 4 The patient is a 62-year-old female presenting with a chief complaint of shortness of breath. The patient states for the past 4-5 days she's had increased work of breathing and complained of shortness of breath. The spouse states the patient coughs with meals. There has been no history of fever. Patient denies chest pain. The patient denies any new weakness. Location: Lung Duration: 4-5 days Quality: Shortness of breath Severity: Moderate Modifying factors: [see above] Context: [see above] Mode of transportation: [not driving] ED Past Medical Hx - Past Medical History Hx Hypertension: Yes Hx CVA: Yes (x 2 (last one in 03/2017); dysphasia, G-tube) Hx Heart Attack/AMI: Yes Hx Congestive Heart Failure: Yes Hx Diabetes: Yes Hx Deep Vein Thrombosis: Yes - Surgical History Hx Coronary Stent: Yes - Family History Family history: no significant - Social History Smoking Status: Former Smoker (none 5 years) Substance Use Type: None (denies illicit drug use) - Medications Home Medications: Home Medications Medication Instructions Recorded Confirmed Last Taken Type AtorvaSTATin [Lipitor] 40 mg PO QHS #30 tablet 05/19/18 Unknown Rx Metoprolol Xl [Metoprolol 25 mg PO QDAY #30 tablet 05/19/18 Unknown Rx SUCCINATE ER TAB] Rivaroxaban [Xarelto] 10 mg PO QDAY #30 tablet 05/19/18 Unknown Rx Sennosides Tab [Senokot] 8.6 mg PO QHS #30 tablet 05/19/18 Unknown Rx amLODIPine [Norvasc] 5 mg PO QDAY #30 tablet 05/19/18 Unknown Rx ED Review of Systems ROS: Stated complaint: HYPERTENSION Other details as noted in HPI Constitutional: denies: fever Eyes: denies: eye pain ENT: denies: throat pain Respiratory: cough, shortness of breath Cardiovascular: denies: chest pain Endocrine: no symptoms reported Gastrointestinal: denies: abdominal pain Genitourinary: denies: dysuria Musculoskeletal: denies: back pain Neurological: denies: weakness Physical Exam - Physical Exam Vital Signs: Vital Signs 07/03/18 12:34 Temperature 98.1 F Pulse Rate 108 H Blood Pressure 179/125 O2 Sat by Pulse 96 Oximetry Physical Exam: GENERAL: The patient is well-developed well-nourished female lying on stretcher not appearing to be in acute distress. [] HEENT: Normocephalic. Atraumatic. Extraocular motions are intact. Patient has moist mucous membranes. NECK: Supple. Trachea midline CHEST/LUNGS: No crackles auscultated. Patient exhibited transient increased work of breathing HEART/CARDIOVASCULAR: Regular. There is tachycardia. There is no gallop rub or murmur. ABDOMEN: Abdomen is soft, nontender. Patient has normal bowel sounds. There is no abdominal distention. SKIN: There is no rash. There is no edema. There is no diaphoresis. NEURO: The patient is awake, alert, and oriented. The patient is cooperative. The patient has a left-sided facial droop, paralysis of left upper extremity weakness in the left leg which have not changed since her last CVA. The patient is able to hold the left lower extremity at 30 but it drifts down without hitting the bed at 5 seconds. Patient able to hold her right lower extremity at 30 for 5 second count MUSCULOSKELETAL: There is no evidence of acute injury. ED Course Vital Signs 07/03/18 12:34 Temperature 98.1 F Pulse Rate 108 H Blood Pressure 179/125 O2 Sat by Pulse 96 Oximetry ED Medical Decision Making - Lab Data Result diagrams: 07/03/18 13:15 07/03/18 13:15 Laboratory Tests 07/03/18 07/03/18 07/03/18 13:15 13:15 13:35 WBC 5.0 RBC 4.56 Hgb 13.1 Hct 40.2 MCV 88 MCH 29 MCHC 33 RDW 17.4 H Plt Count 230 Lymph % (Auto) 35.8 H [place] % (Auto) 8.5 H Eos % (Auto) 1.2 Baso % (Auto) 1.7 Lymph # 1.8 [place] # 0.4 Eos # 0.1 Baso # 0.1 Seg Neutrophils % 52.8 Seg Neutrophils # 2.6 D-Dimer Sodium 142 Potassium 5.4 H Chloride 104.5 Carbon Dioxide 23 Anion Gap 20 BUN 14 Creatinine 1.3 H Estimated GFR 50 BUN/Creatinine Ratio 11 Glucose 101 H Calcium 9.4 Total Creatine Kinase 78 CK-MB (CK-2) 1.9 CK-MB (CK-2) Rel Index 2.4 Troponin T 0.027 NT-Pro-B Natriuret Pep 00363 H 07/03/18 13:42 WBC RBC Hgb Hct MCV MCH MCHC RDW Plt Count Lymph % (Auto) [place] % (Auto) Eos % (Auto) Baso % (Auto) Lymph # [place] # Eos # Baso # Seg Neutrophils % Seg Neutrophils # D-Dimer 135.00 Sodium Potassium Chloride Carbon Dioxide Anion Gap BUN Creatinine Estimated GFR BUN/Creatinine Ratio Glucose Calcium Total Creatine Kinase CK-MB (CK-2) CK-MB (CK-2) Rel Index Troponin T NT-Pro-B Natriuret Pep - EKG Data -: EKG Interpreted by Me EKG shows normal: sinus rhythm Rate: normal - EKG Data When compared to previous EKG there are: previous EKG unavailable Interpretation: nonspecific ST-T wave arielle (flat T waves in leads 1 and aVL) - Radiology Data Radiology results: report reviewed (chest x-ray), image reviewed (chest x-ray) interpreted by me: Chest x-ray-no focal infiltrate, no pneumothorax [facility] [address] [place] [address] XRay Report Signed Patient: VILMA GREEN MR#: [id number] : 1955 Acct:[id number] Age/Sex: 62 / F ADM Date: 07/03/18 Loc: ED Attending Dr: Ordering Physician: TERA VENTURA MD Date of Service: 07/03/18 Procedure(s): XR chest 1V ap Accession Number(s): [id number] cc: TERA VENTURA MD Fluoro Time In Minutes: FINAL REPORT EXAM: XR CHEST 1V AP HISTORY: shortness of breath TECHNIQUE: Chest, portable PRIORS: 07/22/2017 FINDINGS: There is unchanged cardiomegaly. There is no vascular congestion or infiltrate. I cannot confirm pleural effusion. There is no pneumothorax. IMPRESSION: Unchanged cardiomegaly. There is no acute abnormality identified. Transcribed By: ZACHARIAH Dictated By: HERMELINDA HUSAIN MD Electronically Authenticated By: HERMELINDA HUSAIN MD Signed Date/Time: 07/03/181441 DD/ 43 TD/TT: 07/03/181443 - Differential Diagnosis pneumonia, aspiration, bronchitis, PE Critical care attestation.: If time is entered above; I have spent that time in minutes in the direct care of this critically ill patient, excluding procedure time. ED Disposition Clinical Impression: Shortness of breath, Hypoxia, Hyperkalemia Disposition: OP ADMIT IP TO THIS HOSP Is pt being admited?: Yes Does the pt Need Aspirin: Yes Condition: Fair Referrals: PRIMARY CARE,MD [Primary Care Provider] - 3-5 Days Time of Disposition: 14:53 (hospitalist paged (Dr Haro))
[2018-07-03 14:07] LABS: Creatine Kinase MB 1.9 ng/mL (0.0-4.0)
[2018-07-03] MEDS ORDERED: CATAPRES PO ONE (14:27)
--- NOTE | 2018-07-03 14:42 | XRay Report ---
FINAL REPORT EXAM: XR CHEST 1V AP HISTORY: shortness of breath TECHNIQUE: Chest, portable PRIORS: 07/22/2017 FINDINGS: There is unchanged cardiomegaly. There is no vascular congestion or infiltrate. I cannot confirm pleu ral effusion. There is no pneumothorax. IMPRESSION: Unchanged cardiomegaly. There is no acute abnormality identified.
[2018-07-03] MEDS ORDERED: LASIX IV ONE (14:51)
[2018-07-03] MEDS ORDERED: PROVENTIL IH ONE (14:54)
[2018-07-03] MEDS ORDERED: TYLENOL PO PRN (15:23)
[2018-07-03] MEDS ORDERED: SODIUM CHLORIDE FLUSH SYRINGE 10 ML IV PRN (15:23)
[2018-07-03] MEDS ORDERED: PROVENTIL IH PRN (15:23)
[2018-07-03] MEDS ORDERED: ZOFRAN IV PRN (15:23)
--- NOTE | 2018-07-03 15:23 | History and Physical Report ---
History of Present Illness Chief complaint: I cant breathe History of present illness: 62 YO Female with HTN, CVA with LHP and Dysphagia, VA, CHF, DM, DVT, CAD S/P Stent Placement presents to ED for evaluation. Pt states that she has experienced shortness of breath over the past 5 days with persistent symptoms over the same time frame. Pt acknowledges Orthopnea/PND, Dypsnea with exertion, Decreased Exercise tolerance. Pt denies fever, chills, CP, Palpitations, NVD, Trauma, Skin rash, prolonged travel/immobility, unilateral leg pain, calf pain, productive cough, or recent ill contacts. EMS notified, and upon arrival the patient was found to be in distress. Pt transported to [facility] for further care and evaluation. Pt seen and evaluated in ED and found to have CHF Decompensation, Acute Respiratory Failure. Pt admitted to telemetry and initiated on CHF protocol. Cardiology consulted in ED. Past History Past Medical History: acute VA, CAD, diabetes, DVT, heart failure, hypertension, stroke Past Surgical History: Other (Stent, G tube) Social history: , lives with family. denies: smoking Family history: diabetes, hypertension Medications and Allergies Allergies Allergy/AdvReac Type Severity Reaction Status Date / Time No Known Allergies Allergy Verified 03/26/17 07:39 Home Medications Medication Instructions Recorded Confirmed Last Taken Type No Known Home Medications [No 07/03/18 07/03/18 Unknown History Reported Home Medications] Review of Systems Constitutional: no weight loss, no weight gain, no fever, no chills Ears, nose, mouth and throat: no deferred, no ear pain, no tinnitis, no decreased hearing Breasts: no change in shape, no swelling, no mass Cardiovascular: orthopnea, shortness of breath, dyspnea on exertion, paroxysmal nocturnal dyspnea, decreased exercise tolerance Respiratory: no cough, no cough with sputum, no excessive sputum, no hemoptysis Gastrointestinal: no nausea, no vomiting, no diarrhea, no constipation Genitourinary Female: no pelvic pain, no flank pain, no menorrhagia, no dysuria Rectal: no pain, no incontinence, no bleeding Musculoskeletal: no neck stiffness, no neck pain, no shooting arm pain, no arm numbness/tingling, no low back pain Integumentary: no rash, no pruritis, no redness, no sores, no wounds Neurological: no head injury, no transient paralysis, no paralysis, no weakness, no parathesias, no numbness, no tingling, no seizures, no syncope Psychiatric: no memory loss, no change in sleep habits, no sleep disturbances, no insomnia, no hypersomnia Endocrine: no cold intolerance, no heat intolerance, no polyphagia, no excessive thirst, no polydipsia, no polyuria Hematologic/Lymphatic: no easy bruising, no easy bleeding, no lymphadenopathy, no lymphedema Allergic/Immunologic: no urticaria, no allergic rhinitis, no wheezing, no persistent infections, no anaphylaxis, no angioedema Exam - Constitutional Vitals: Temp Pulse Resp BP Pulse Ox 98.1 F 80 18 152/125 95 07/03/18 12:34 07/03/18 15:21 07/03/18 15:21 07/03/18 15:09 07/03/18 15:09 General appearance: Present: mild distress, cachectic - EENT Eyes: Present: PERRL ENT: hearing intact, clear oral mucosa - Neck Neck: Present: supple, normal ROM - Respiratory Respiratory effort: normal Respiratory: bilateral: CTA - Cardiovascular Heart Sounds: Present: S1 & S2. Absent: rub, click - Extremities Extremities: pulses symmetrical, No edema Peripheral Pulses: within normal limits - Abdominal General gastrointestinal: Present: soft, non-tender, non-distended, normal bowel sounds Female genitourinary: Present: normal - Integumentary Integumentary: Present: clear, warm, dry - Musculoskeletal Musculoskeletal: gait normal, strength equal bilaterally - Psychiatric Psychiatric: appropriate mood/affect, intact judgment & insight - Neurologic Neurologic: CNII-XII intact, moves all extremities Results - Labs CBC & Chem 7: 07/03/18 13:15 07/03/18 13:15 Labs: Abnormal lab results 07/03/18 07/03/18 07/03/18 Range/Units 13:15 13:15 13:35 RDW 17.4 H (13.2-15.2) % Lymph % (Auto) 35.8 H (13.4-35.0) % [place] % (Auto) 8.5 H (0.0-7.3) % Potassium 5.4 H (3.6-5.0) mmol/L Creatinine 1.3 H (0.7-1.2) mg/dL Glucose 101 H (65-100) mg/dL NT-Pro-B Natriuret Pep 27720 H (0-900) pg/mL Assessment and Plan - Patient Problems (1) CHF (congestive heart failure) Current Visit: No Status: Chronic Qualifiers: Heart failure type: combined systolic and diastolic Heart failure chronici ty: acute Qualified Code(s): I50.41 - Acute combined systolic (congestive) and diastolic (congestive) heart failure Plan to address problem: Admit to telemetry, strict I/O, daily weight, afterload reduction, cardiology consulted in ED, chest x ray, BNP, (2) Respiratory failure Current Visit: Yes Status: Acute Qualifiers: Chronicity: acute Respiratory failure complication: hypoxia Qualified Code(s): J96.01 - Acute respiratory failure with hypoxia Plan to address problem: Supplemental oxygen, nebulizer therapy, chest x ray, NIPPV as clinically indicated, (3) Hyperkalemia Current Visit: Yes Status: Acute Plan to address problem: repeat potassium level, (4) ARF (acute renal failure) with tubular necrosis Current Visit: Yes Status: Acute Plan to address problem: IVF resuscitation therapy, monitor uop q shift, (5) DVT prophylaxis Current Visit: No Status: Acute Plan to address problem: SCD to ble while in bed.
[2018-07-03] MEDS: PEPCID PO SCH (16:14)
[2018-07-04] MEDS: PEPCID PO SCH ×3 (06:20→22:00)
[2018-07-04] MEDS: SODIUM CHLORIDE FLUSH SYRINGE 10 ML IV SCH ×2 (06:29→09:43)
[2018-07-04] MEDS: LASIX IV SCH ×2 (06:29→17:42)
--- NOTE | 2018-07-04 10:51 | Progress Note ---
Assessment and Plan Assessment and plan: 62-year-old woman who presented with shortness of breath, hasbeen coughing during meals CXR; no acute findings Past medical history includes hypertension, cad: history of [place], CHF, w hx of LV thrombosis, diabetes, history of DVT, history of multiple CVA, most recent was in April 2018, now on xarelto non-adherece to meds her has not been giving her any of her meds, despite her being dc with meds, he claims she was dc from acute rehab with no meds, but on [employer], there is a med list and prescriptions for all her meds Acute on chronic CHF, EF 10% hypercoaguable state, hx of LV thrombus -on xarelto -cardiology consult, cont lasix Acute respiratory failure, with hypoxia cont oxygen Hyperkalemia Now resolved Acute kidney injury, due to vasomotor nephropathy monitor cr, judicious use of diuretics Dysphagia; ST consult DVT prophylaxis; chemical History Interval history: unable to articulate how she is feeling due to expressive aphasia has been coughing when eating -no fever, no seizure -no agitation, no vomiting, no obvious discomfort Hospitalist Physical - Physical exam Narrative exam: General appearance: Present: mild distress, cachectic - EENT Eyes: Present: PERRL ENT: hearing intact, clear oral mucosa - Neck Neck: Present: supple, normal ROM - Respiratory Respiratory effort: normal Respiratory: bilateral: basilar crackles - Cardiovascular Heart Sounds: Present: S1 & S2. Absent: rub, click - Extremities Extremities: pulses symmetrical, No edema Peripheral Pulses: within normal limits - Abdominal General gastrointestinal: Present: soft, non-tender, non-distended, normal bowel sounds Female genitourinary: Present: normal - Integumentary Integumentary: Present: clear, warm, dry - Musculoskeletal Musculoskeletal: gait normal, strength equal bilaterally - Psychiatric Psychiatric: calm and cooperative - Neurologic Neurologic: left hemiplegia, expressive aphasia - Constitutional Vitals: Temp Pulse Resp BP Pulse Ox 98.8 F 72 17 146/105 99 07/04/18 09:11 07/04/18 09:58 07/04/18 09:58 07/04/18 08:47 07/04/18 09:58 General appearance: Present: mild distress, cachectic Results - Labs CBC & Chem 7: 07/03/18 13:15 07/04/18 09:31 Labs: Laboratory Last Values WBC 5.0 K/mm3 (4.5-11.0) 07/03/18 13:15 RBC 4.56 M/mm3 (3.65-5.03) 07/03/18 13:15 Hgb 13.1 gm/dl (10.1-14.3) 07/03/18 13:15 Hct 40.2 % (30.3-42.9) 07/03/18 13:15 MCV 88 fl (79-97) 07/03/18 13:15 MCH 29 pg (28-32) 07/03/18 13:15 MCHC 33 % (30-34) 07/03/18 13:15 RDW 17.4 % (13.2-15.2) H 07/03/18 13:15 Plt Count 230 K/mm3 (140-440) 07/03/18 13:15 Lymph % (Auto) 35.8 % (13.4-35.0) H 07/03/18 13:15 [place] % (Auto) 8.5 % (0.0-7.3) H 07/03/18 13:15 Eos % (Auto) 1.2 % (0.0-4.3) 07/03/18 13:15 Baso % (Auto) 1.7 % (0.0-1.8) 07/03/18 13:15 Lymph # 1.8 K/mm3 (1.2-5.4) 07/03/18 13:15 [place] # 0.4 K/mm3 (0.0-0.8) 07/03/18 13:15 Eos # 0.1 K/mm3 (0.0-0.4) 07/03/18 13:15 Baso # 0.1 K/mm3 (0.0-0.1) 07/03/18 13:15 Seg Neutrophils % 52.8 % (40.0-70.0) 07/03/18 13:15 Seg Neutrophils # 2.6 K/mm3 (1.8-7.7) 07/03/18 13:15 D-Dimer 135.00 ng/mlDDU (0-234) 07/03/18 13:42 Sodium 142 mmol/L (137-145) 07/03/18 13:15 Potassium 4.4 mmol/L (3.6-5.0) 07/04/18 09:31 Chloride 104.5 mmol/L (98-107) 07/03/18 13:15 Carbon Dioxide 23 mmol/L (22-30) 07/03/18 13:15 Anion Gap 20 mmol/L 07/03/18 13:15 BUN 14 mg/dL (7-17) 07/03/18 13:15 Creatinine 1.3 mg/dL (0.7-1.2) H 07/03/18 13:15 Estimated GFR 50 ml/min 07/03/18 13:15 BUN/Creatinine Ratio 11 % 07/03/18 13:15 Glucose 101 mg/dL (65-100) H 07/03/18 13:15 Calcium 9.4 mg/dL (8.4-10.2) 07/03/18 13:15 Total Creatine Kinase 78 units/L (30-135) 07/03/18 13:35 CK-MB (CK-2) 1.9 ng/mL (0.0-4.0) 07/03/18 13:35 CK-MB (CK-2) Rel Index 2.4 (0-4) 07/03/18 13:35 Troponin T 0.027 ng/mL (0.00-0.029) 07/04/18 09:31 NT-Pro-B Natriuret Pep 59599 pg/mL (0-900) H 07/03/18 13:35
--- NOTE | 2018-07-04 13:39 | Consultation ---
History of Present Illness Consult date: 07/04/18 Consult reason: congestive heart failure History of present illness: 62 YO female with a past medical history of CAD s/p STEMI with PCI of LAD which was 100% occluded, 90% circ, 40% RCA, EF 40% - done at [facility] 07/2016, dilated CMP, LV thrombus (diagnosed 07/2016), CVA with residual right sided weakness and dysarthria, HTN, DM, CKD. She is currently admitted because her noticed that she has been coughing more frequently - especially when she eats or drinks something. He was concerned about aspiration and brought her to the hospital. She has not experienced unusual chest pain, dyspnea, or orthopnea. Her BNP is elevated. Echo done on 04/27/2018 showed EF 15-20%, severe 4 chamber dilated CMP, mild to mod LVH, mod MR, mod to severe TR, severe pulm HTN with RVSP 63mmHg, small hemodynamically insignificant pericardial effusion, negative contrast bubble study. ECG reveals sinus rhythm, left atrial enlargement, prior inferior HI. Past History Past Medical History: acute HI, CAD, diabetes, DVT, heart failure, hypertension, stroke Past Surgical History: PTCA, Other (Stent, G tube) Social history: , lives with family. denies: smoking Family history: diabetes, hypertension Medications and Allergies Allergies Allergy/AdvReac Type Severity Reaction Status Date / Time No Known Allergies Allergy Verified 03/26/17 07:39 Home Medications Medication Instructions Recorded Confirmed Last Taken Type Atorvastatin Calcium [Lipitor] 40 mg PO DAILY 07/04/18 07/04/18 Unknown History Metoprolol [Lopressor] 25 mg PO DAILY 07/04/18 07/04/18 Unknown History Rivaroxaban [Xarelto] 10 mg PO QDAY 07/04/18 07/04/18 Unknown History Sennosides [Senokot] 8.6 mg PO QHS 07/04/18 07/04/18 Unknown History amLODIPine [Norvasc] 5 mg PO DAILY 07/04/18 07/04/18 Unknown History Active Meds: Active Medications Acetaminophen (Tylenol) 650 mg PO Q4H PRN PRN Reason: Pain MILD(1-3)/Fever >100.5/BURGESS Albuterol (Proventil) 2.5 mg IH Q4H PRN PRN Reason: Shortness Of Breath Famotidine (Pepcid) 20 mg PO BID [facility] Last Admin: 07/04/18 09:43 Dose: 20 mg Documented by: Furosemide (Lasix) 20 mg IV BID@0600,1800 [facility] Last Admin: 07/04/18 06:29 Dose: 20 mg Documented by: Ondansetron HCl (Zofran) 4 mg IV Q8H PRN PRN Reason: Nausea And Vomiting Sodium Chloride (Sodium Chloride Flush Syringe 10 Ml) 10 ml IV BID [facility] Last Admin: 07/04/18 09:43 Dose: 10 ml Documented by: Sodium Chloride (Sodium Chloride Flush Syringe 10 Ml) 10 ml IV PRN PRN PRN Reason: LINE FLUSH Review of Systems All systems: negative (per hpi) Physical Examination Vital Signs Temp Pulse BP Pulse Ox 98.1 F 108 H 179/125 96 07/03/18 12:34 07/03/18 12:34 07/03/18 12:34 07/03/18 12:34 HEENT: Positive: PERRL Neck: Positive: neck supple Cardiac: Positive: Reg Rate and Rhythm, Systolic Murmur (II/ HSM apex) Lungs: Positive: clear to auscultation Abdomen: Positive: Soft, Active Bowel Sounds Extremities: Absent: edema Results 07/03/18 13:15 07/04/18 09:31 Cardiac Enzymes 07/03/18 Range/Units 13:35 CK-MB (CK-2) 1.9 (0.0-4.0) ng/mL Comprehensive Metabolic Panel 07/03/18 07/04/18 Range/Units 13:15 09:31 Sodium 142 (137-145) mmol/L Potassium 5.4 H 4.4 (3.6-5.0) mmol/L Chloride 104.5 (98-107) mmol/L Carbon Dioxide 23 (22-30) mmol/L BUN 14 (7-17) mg/dL Creatinine 1.3 H (0.7-1.2) mg/dL Glucose 101 H (65-100) mg/dL Calcium 9.4 (8.4-10.2) mg/dL Assessment and Plan Possible dysphagia Acute on chronic systolic heart failure Ischemic cardiomyopathy CAD s/p PCI S/P CVA Htn DM Recommend: Continue medical therapy for ischemic cardiomyopathy Swallow/speech therapy evaluation
[2018-07-04] MEDS ORDERED: APRESOLINE IV PRN (18:23)
[2018-07-04] MEDS: XARELTO PO SCH (19:00)
[2018-07-04] MEDS: NORVASC PO SCH (20:00)
[2018-07-04] MEDS: LOPRESSOR PO SCH (22:00)
[2018-07-04] MEDS: SENOKOT PO SCH (22:00)
[2018-07-05] MEDS: LASIX IV SCH (05:57)
[2018-07-05] MEDS: SODIUM CHLORIDE FLUSH SYRINGE 10 ML IV SCH ×3 (05:58→22:00)
[2018-07-05 06:20] LABS: Calcium 9.1 mg/dL (8.4-10.2)
--- NOTE | 2018-07-05 09:23 | Progress Note ---
Assessment and Plan Hypertension -now controlled Possible dysphagia Acute on chronic systolic heart failure Ischemic cardiomyopathy CAD s/p PCI Prior CVA DM Recommend: Continue medical therapy for ischemic cardiomyopathy and coronary artery disease and tolerated. Subjective Date of service: 07/05/18 Interval history: Patient denies chest pain and shortness of breath. Objective Vital Signs Temp Pulse Pulse Resp BP BP Pulse Ox 07/05/18 07:40 97.4 F L 72 16 136/92 96 07/05/18 05:44 97.8 F 65 20 132/86 99 07/05/18 02:00 84 07/04/18 23:01 98.0 F 65 20 130/57 98 07/04/18 22:00 74 18 98 07/04/18 19:40 98.0 F 84 20 102/55 100 07/04/18 18:00 80 07/04/18 17:32 87 18 99 07/04/18 11:48 97.7 F 81 18 135/100 142/106 99 07/04/18 09:58 72 17 99 07/04/18 09:56 72 - Physical Examination General: No Apparent Distress HEENT: Positive: PERRL Neck: Positive: trachea midline Cardiac: Positive: Reg Rate and Rhythm Lungs: Positive: Decreased Breath Sounds Neuro: Positive: Weakness (left sided residual) Abdomen: Positive: Active Bowel Sounds Extremities: Absent: edema - Labs and Meds Comprehensive Metabolic Panel 07/04/18 07/05/18 Range/Units 09:31 05:19 Sodium 142 (137-145) mmol/L Potassium 4.4 3.9 (3.6-5.0) mmol/L Chloride 104.7 (98-107) mmol/L Carbon Dioxide 23 (22-30) mmol/L BUN 14 (7-17) mg/dL Creatinine 1.4 H (0.7-1.2) mg/dL Glucose 68 (65-100) mg/dL Calcium 9.1 (8.4-10.2) mg/dL
--- NOTE | 2018-07-05 11:25 | Progress Note ---
Assessment and Plan Assessment and plan: 62-year-old woman who presented with shortness of breath, has been coughing during meals CXR; no acute findings Past medical history includes hypertension, cad: history of [place], CHF, w hx of LV thrombosis, diabetes, history of DVT, history of multiple CVA, most recent was in April 2018, now on xarelto non-adherece to meds her has not been giving her any of her meds, despite her being dc with meds, he claims she was dc from acute rehab with no meds, but on [email or web address], there is a med list and prescriptions for all her meds all her meds were restarted, home health for med mgt to ensure improved adherence as is not reliable, dw Case management- [place] Acute on chronic CHF, EF 10% hypercoaguable state, hx of LV thrombus -on xarelto -cardiology consult, received lasix, now euvolemic, dc iv lasix due to bump in cr Acute respiratory failure, with hypoxia now weaned off oxygen Hyperkalemia Now resolved after receiving lasix Acute kidney injury, due to vasomotor nephropathy monitor cr, dc lasix now Dysphagia; ST consult, awaiting recs DVT prophylaxis; con xarelto History Interval history: unable to articulate how she is feeling due to expressive aphasia has been coughing when eating -no fever, no seizure -no agitation, no vomiting, no obvious discomfort Hospitalist Physical - Physical exam Narrative exam: General appearance: Present: mild distress, cachectic - EENT Eyes: Present: PERRL ENT: hearing intact, clear oral mucosa - Neck Neck: Present: supple, normal ROM - Respiratory Respiratory effort: normal Respiratory: bilateral: basilar crackles - Cardiovascular Heart Sounds: Present: S1 & S2. Absent: rub, click - Extremities Extremities: pulses symmetrical, No edema Peripheral Pulses: within normal limits - Abdominal General gastrointestinal: Present: soft, non-tender, non-distended, normal bowel sounds Female genitourinary: Present: normal - Integumentary Integumentary: Present: clear, warm, dry - Musculoskeletal Musculoskeletal: gait normal, strength equal bilaterally - Psychiatric Psychiatric: calm and cooperative - Neurologic Neurologic: left hemiplegia, expressive aphasia - Constitutional Vitals: Temp Pulse Resp BP Pulse Ox 97.4 F L 72 16 136/92 96 07/05/18 07:40 07/05/18 07:40 01/14/19 07:40 07/05/18 07:40 07/05/18 07:40 General appearance: Present: mild distress, cachectic Results - Labs CBC & Chem 7: 07/03/18 13:15 07/05/18 05:19 Labs: Laboratory Last Values WBC 5.0 K/mm3 (4.5-11.0) 07/03/18 13:15 RBC 4.56 M/mm3 (3.65-5.03) 07/03/18 13:15 Hgb 13.1 gm/dl (10.1-14.3) 07/03/18 13:15 Hct 40.2 % (30.3-42.9) 07/03/18 13:15 MCV 88 fl (79-97) 07/03/18 13:15 MCH 29 pg (28-32) 07/03/18 13:15 MCHC 33 % (30-34) 07/03/18 13:15 RDW 17.4 % (13.2-15.2) H 07/03/18 13:15 Plt Count 230 K/mm3 (140-440) 07/03/18 13:15 Lymph % (Auto) 35.8 % (13.4-35.0) H 07/03/18 13:15 [place] % (Auto) 8.5 % (0.0-7.3) H 07/03/18 13:15 Eos % (Auto) 1.2 % (0.0-4.3) 07/03/18 13:15 Baso % (Auto) 1.7 % (0.0-1.8) 07/03/18 13:15 Lymph # 1.8 K/mm3 (1.2-5.4) 07/03/18 13:15 [place] # 0.4 K/mm3 (0.0-0.8) 07/03/18 13:15 Eos # 0.1 K/mm3 (0.0-0.4) 07/03/18 13:15 Baso # 0.1 K/mm3 (0.0-0.1) 07/03/18 13:15 Seg Neutrophils % 52.8 % (40.0-70.0) 07/03/18 13:15 Seg Neutrophils # 2.6 K/mm3 (1.8-7.7) 07/03/18 13:15 D-Dimer 135.00 ng/mlDDU (0-234) 07/03/18 13:42 Sodium 142 mmol/L (137-145) 07/05/18 05:19 Potassium 3.9 mmol/L (3.6-5.0) 07/05/18 05:19 Chloride 104.7 mmol/L (98-107) 07/05/18 05:19 Carbon Dioxide 23 mmol/L (22-30) 07/05/18 05:19 Anion Gap 18 mmol/L 07/05/18 05:19 BUN 14 mg/dL (7-17) 07/05/18 05:19 Creatinine 1.4 mg/dL (0.7-1.2) H 07/05/18 05:19 Estimated GFR 46 ml/min 07/05/18 05:19 BUN/Creatinine Ratio 10 % 07/05/18 05:19 Glucose 68 mg/dL (65-100) 07/05/18 05:19 Calcium 9.1 mg/dL (8.4-10.2) 07/05/18 05:19 Total Creatine Kinase 78 units/L (30-135) 07/03/18 13:35 CK-MB (CK-2) 1.9 ng/mL (0.0-4.0) 07/03/18 13:35 CK-MB (CK-2) Rel Index 2.4 (0-4) 07/03/18 13:35 Troponin T 0.027 ng/mL (0.00-0.029) 07/04/18 09:31 NT-Pro-B Natriuret Pep 53032 pg/mL (0-900) H 07/03/18 13:35
[2018-07-05] MEDS: PEPCID PO SCH ×2 (11:41→22:00)
[2018-07-05] MEDS: LOPRESSOR PO SCH ×2 (11:41→22:00)
[2018-07-05] MEDS: XARELTO PO SCH (11:41)
[2018-07-05] MEDS: NORVASC PO SCH (11:41)
--- NOTE | 2018-07-05 11:59 | Progress Note ---
Addendum entered and electronically signed by MARILEE CALDERA MD 07/05/18 12:43: Medical therapy for coronary artery disease, ischemic cardiomyopathy and chronic systolic heart failure. Original Note: Assessment and Plan Uncontrolled Hypertension -reason for admission Acute renal failure IV lasix held due to rise in creatinine. Acute on chronic systolic heart failure Ischemic cardiomyopathy, EF 15-20% CAD s/p PCI follows with [facility] S/P CVA DM Hx of LV thrombus on xarelto for oral anticoagulation. Recommend: Continue medical therapy for ischemic cardiomyopathy and coronary artery disease as tolerated. Subjective Date of service: 07/05/18 Interval history: Patient has no complaints. Tolerated morning breakfast. Objective Vital Signs Temp Pulse Pulse Resp BP Pulse Ox 07/05/18 07:40 97.4 F L 72 16 136/92 96 07/05/18 05:44 97.8 F 65 20 132/86 99 07/05/18 02:00 84 07/04/18 23:01 98.0 F 65 20 130/57 98 07/04/18 22:00 74 18 98 07/04/18 19:40 98.0 F 84 20 102/55 100 07/04/18 18:00 80 07/04/18 17:32 87 18 99 - Physical Examination General: No Apparent Distress HEENT: Positive: PERRL Neck: Positive: trachea midline Cardiac: Positive: Reg Rate and Rhythm Lungs: Positive: Decreased Breath Sounds Neuro: Positive: Weakness (right sided residual) Extremities: Absent: edema - Labs and Meds Comprehensive Metabolic Panel 07/05/18 Range/Units 05:19 Sodium 142 (137-145) mmol/L Potassium 3.9 (3.6-5.0) mmol/L Chloride 104.7 (98-107) mmol/L Carbon Dioxide 23 (22-30) mmol/L BUN 14 (7-17) mg/dL Creatinine 1.4 H (0.7-1.2) mg/dL Glucose 68 (65-100) mg/dL Calcium 9.1 (8.4-10.2) mg/dL
[2018-07-05] MEDS: SENOKOT PO SCH (22:00)
[2018-07-05] MEDS: APRESOLINE PO SCH (23:16)
[2018-07-06] MEDS: APRESOLINE PO SCH ×2 (10:59→23:09)
[2018-07-06] MEDS: PEPCID PO SCH ×2 (11:00→23:09)
[2018-07-06] MEDS: LOPRESSOR PO SCH ×2 (11:00→23:09)
[2018-07-06] MEDS: HALFPRIN EC PO SCH (11:00)
[2018-07-06] MEDS: SODIUM CHLORIDE FLUSH SYRINGE 10 ML IV SCH ×2 (11:01→23:10)
[2018-07-06] MEDS: XARELTO PO SCH (11:06)
--- NOTE | 2018-07-06 12:24 | Progress Note ---
Assessment and Plan Assessment and plan: 62-year-old woman who presented with shortness of breath, has been coughing during meals CXR; no acute findings Past medical history includes hypertension, cad: history of [place], CHF, w hx of LV thrombosis, diabetes, history of DVT, history of multiple CVA, most recent was in April 2018, now on xarelto non-adherece to meds her has not been giving her any of her meds, despite her being dc with meds, he claims she was dc from acute rehab with no meds, but on [email or web address], there is a med list and prescriptions for all her meds all her meds were restarted, home health for med mgt to ensure improved adherence as is not reliable, dw Case management- [place] Acute on chronic CHF, EF 10% hypercoaguable state, hx of LV thrombus -on xarelto -cardiology consult, received lasix, now euvolemic, dc iv lasix due to bump in cr Acute respiratory failure, with hypoxia now weaned off oxygen Hyperkalemia Now resolved after receiving lasix Acute kidney injury, due to vasomotor nephropathy monitor cr, dc lasix now Dysphagia; ST consult, awaiting recs DVT prophylaxis; con xarelto History Interval history: unable to articulate how she is feeling due to expressive aphasia has been coughing when eating -no fever, no seizure -no agitation, no vomiting, no obvious discomfort Hospitalist Physical - Physical exam Narrative exam: General appearance: Present: mild distress, cachectic - EENT Eyes: Present: PERRL ENT: hearing intact, clear oral mucosa - Neck Neck: Present: supple, normal ROM - Respiratory Respiratory effort: normal Respiratory: bilateral: basilar crackles - Cardiovascular Heart Sounds: Present: S1 & S2. Absent: rub, click - Extremities Extremities: pulses symmetrical, No edema Peripheral Pulses: within normal limits - Abdominal General gastrointestinal: Present: soft, non-tender, non-distended, normal bowel sounds Female genitourinary: Present: normal - Integumentary Integumentary: Present: clear, warm, dry - Musculoskeletal Musculoskeletal: gait normal, strength equal bilaterally - Psychiatric Psychiatric: calm and cooperative - Neurologic Neurologic: left hemiplegia, expressive aphasia - Constitutional Vitals: Temp Pulse Resp BP Pulse Ox 97.7 F 75 18 118/86 97 07/06/18 12:22 07/06/18 12:21 07/06/18 12:21 07/06/18 12:21 07/06/18 12:21 General appearance: Present: mild distress, cachectic Results - Labs CBC & Chem 7: 07/03/18 13:15 07/06/18 05:25 Labs: Laboratory Last Values WBC 5.0 K/mm3 (4.5-11.0) 07/03/18 13:15 RBC 4.56 M/mm3 (3.65-5.03) 07/03/18 13:15 Hgb 13.1 gm/dl (10.1-14.3) 07/03/18 13:15 Hct 40.2 % (30.3-42.9) 07/03/18 13:15 MCV 88 fl (79-97) 07/03/18 13:15 MCH 29 pg (28-32) 07/03/18 13:15 MCHC 33 % (30-34) 07/03/18 13:15 RDW 17.4 % (13.2-15.2) H 07/03/18 13:15 Plt Count 230 K/mm3 (140-440) 07/03/18 13:15 Lymph % (Auto) 35.8 % (13.4-35.0) H 07/03/18 13:15 [place] % (Auto) 8.5 % (0.0-7.3) H 07/03/18 13:15 Eos % (Auto) 1.2 % (0.0-4.3) 07/03/18 13:15 Baso % (Auto) 1.7 % (0.0-1.8) 07/03/18 13:15 Lymph # 1.8 K/mm3 (1.2-5.4) 07/03/18 13:15 [place] # 0.4 K/mm3 (0.0-0.8) 07/03/18 13:15 Eos # 0.1 K/mm3 (0.0-0.4) 07/03/18 13:15 Baso # 0.1 K/mm3 (0.0-0.1) 07/03/18 13:15 Seg Neutrophils % 52.8 % (40.0-70.0) 07/03/18 13:15 Seg Neutrophils # 2.6 K/mm3 (1.8-7.7) 07/03/18 13:15 D-Dimer 135.00 ng/mlDDU (0-234) 07/03/18 13:42 Sodium 143 mmol/L (137-145) 07/06/18 05:25 Potassium 3.8 mmol/L (3.6-5.0) 07/06/18 05:25 Chloride 105.7 mmol/L (98-107) 07/06/18 05:25 Carbon Dioxide 25 mmol/L (22-30) 07/06/18 05:25 Anion Gap 16 mmol/L 07/06/18 05:25 BUN 19 mg/dL (7-17) H 07/06/18 05:25 Creatinine 1.5 mg/dL (0.7-1.2) H 07/06/18 05:25 Estimated GFR 43 ml/min 07/06/18 05:25 BUN/Creatinine Ratio 13 % 07/06/18 05:25 Glucose 65 mg/dL (65-100) 07/06/18 05:25 POC Glucose 132 (70-105) H 07/05/18 16:05 Calcium 9.0 mg/dL (8.4-10.2) 07/06/18 05:25 Total Creatine Kinase 78 units/L (30-135) 07/03/18 13:35 CK-MB (CK-2) 1.9 ng/mL (0.0-4.0) 07/03/18 13:35 CK-MB (CK-2) Rel Index 2.4 (0-4) 07/03/18 13:35 Troponin T 0.027 ng/mL (0.00-0.029) 07/04/18 09:31 NT-Pro-B Natriuret Pep 52010 pg/mL (0-900) H 07/03/18 13:35 Nutrition/Malnutrition Assess - Dietary Evaluation Nutrition/Malnutrition Findings: Nutrition Notes Start: 07/05/18 16:51 Freq: Status: Active Protocol: Document 07/05/18 16:51 OL (Rec: 07/05/18 16:56 OL [id number]) Nutrition Notes Need for Assessment generated from: Low BMI Initial or Follow up Assessment Current Diagnosis Coronary Artery Disease Diabetes Hypertension Heart Failure Stroke Other Pertinent Diagnosis aphasia Current Diet cardiac Labs/Tests Cr 1.4 Pertinent Medications Reviewed Height 5 ft 5 in Weight 40.9 kg [place] Body Weight (lbs) 125.0 BMI 15.0 Subjective/Other Information RD screen for low BMI. Pt. with oral dysphagia, seen by INTERVENTIONAL TECH. INTERVENTIONAL TECH recommending regular texture/thin liquids. Pt. reports UBW 75-100#. 50% of lunch consumed so far. Pt. believes she has lost wt. but is unsure of time frame. Pt. drinks Glucerna at home. Burn Absent Trauma Absent #1 Nutrition Diagnosis Inadequate oral intake Etiology dysphagia As Evidenced by Signs and Symptoms unintended wt. loss Is patient on ventilator? No Is Patient Ambulatory and/or Out of Bed No REE-([place] [facility]-confined to bed) 1169.316 Kcal/Kg value to use for calculation 35 Approximate Energy Requirements Using 1432 kcal/Kg Calculation Used for Recommendations Kcal/kg Additional Notes protein (1.2-1.5g/kg): 49-61g fluid: 1mL/kcal or per MD Nutrition Intervention Change Diet Order: Continue cardiac Add Supplement/Snack (indicate name/kcal Glucerna BID /protein ) Provides kCal: 440 Provides Protein (gm) 20 Goal #1 PO + ONS intakes to meet 75- 100% of nutrient needs Anticipated Discharge Needs: Cardiac Follow-Up By: 07/07/18 Additional Comments f/u: intakes, glucose trend, switch to Ensure Enlive if glucose remains normal
--- NOTE | 2018-07-06 13:44 | Progress Note ---
Addendum entered and electronically signed by MARILEE CALDERA MD 07/06/18 14:14: The patient has a long-standing, severe ischemic cardiomyopathy. In May 11, left ventricle ejection fraction was 10-15% on echocardiogram, on the most recent echocardiogram April 2018, remains persistently decreased at 15-20%. Recommendations: Aggressive medical therapy for cardiomyopathy, systolic left ventricular dysfunction, coronary artery disease. Xarelto therapy is recorded as indicated for a history of left ventricular thrombus. If so, this is off-label indication. She is a [facility] patient, it is unclear if in the outpatient setting she has had, assessment for ICD therapy for primary prevention. We will recommend outpatient follow-up with Dr. Long in one week post discharge, for further assessment. Original Note: Assessment and Plan Uncontrolled Hypertension -reason for admission Acute renal failure IV lasix held due to rise in creatinine. Acute on chronic systolic heart failure Ischemic cardiomyopathy, EF 15-20% CAD s/p PCI follows with [facility] S/P CVA DM Hx of LV thrombus on xarelto for oral anticoagulation. Recommend: Continue medical therapy for ischemic cardiomyopathy and coronary artery disease as tolerated. Outpatient cardiac evaluation about future cardiac defibrillator. Patient will follow up in our office with Dr Long, August 10 at 1040a. Subjective Date of service: 07/06/18 Interval history: Patient has no complaints. Objective Vital Signs Temp Pulse Resp BP Pulse Ox 07/06/18 12:22 97.7 F 07/06/18 12:21 75 18 118/86 97 07/06/18 11:00 86 07/06/18 10:59 86 07/06/18 09:09 97.5 F L 07/06/18 09:07 79 18 130/101 93 07/06/18 04:28 98.0 F 74 18 111/80 97 07/06/18 02:00 68 07/06/18 00:09 98.0 F 69 18 113/76 99 07/05/18 23:16 84 154/93 07/05/18 22:00 18 99 07/05/18 19:56 98.0 F 84 18 154/93 100 07/05/18 16:02 98.2 F 83 18 125/78 98 - Physical Examination General: No Apparent Distress HEENT: Positive: PERRL Neck: Positive: trachea midline Cardiac: Positive: Reg Rate and Rhythm Lungs: Positive: Decreased Breath Sounds Neuro: Positive: Weakness (right sided residual) Abdomen: Positive: Active Bowel Sounds Extremities: Absent: edema - Labs and Meds Comprehensive Metabolic Panel 07/06/18 Range/Units 05:25 Sodium 143 (137-145) mmol/L Potassium 3.8 (3.6-5.0) mmol/L Chloride 105.7 (98-107) mmol/L Carbon Dioxide 25 (22-30) mmol/L BUN 19 H (7-17) mg/dL Creatinine 1.5 H (0.7-1.2) mg/dL Glucose 65 (65-100) mg/dL Calcium 9.0 (8.4-10.2) mg/dL
[2018-07-06] MEDS ORDERED: HEPARIN/ 0.45% NACL-25,000 UNIT/500 ML 25,000 UNIT/500 ML BAG IV SCH (16:00)
[2018-07-06 16:44] LABS: Hematocrit 43.4 % (30.3-42.9); Hemoglobin 14.1 gm/dl (10.1-14.3)
[2018-07-06 16:49] LABS: Partial Thromboplastin Time 34.3 Sec. (24.2-36.6)
[2018-07-06] MEDS: COUMADIN PO SCH (20:44)
[2018-07-06] MEDS: SENOKOT PO SCH (23:10)
[2018-07-07 07:06] LABS: INR 1.02 (0.87-1.13)
[2018-07-07 07:39] LABS: Calcium 9.2 mg/dL (8.4-10.2)
[2018-07-07] MEDS: APRESOLINE PO SCH ×2 (09:51→21:46)
[2018-07-07] MEDS: PEPCID PO SCH (09:51)
[2018-07-07] MEDS: HALFPRIN EC PO SCH (09:51)
[2018-07-07] MEDS: LOPRESSOR PO SCH ×2 (09:56→21:47)
[2018-07-07] MEDS: SODIUM CHLORIDE FLUSH SYRINGE 10 ML IV SCH ×2 (10:01→21:45)
--- NOTE | 2018-07-07 11:25 | Progress Note ---
Addendum entered and electronically signed by ZION EARL MD 07/07/18 12:14: Patient seen and examined by me Patient refusing to take anticoagulation. No new cardiac recommendations Original Note: Assessment and Plan Uncontrolled Hypertension -reason for admission Acute renal failure IV lasix held due to rise in creatinine. Acute on chronic systolic heart failure Hx of Ischemic cardiomyopathy, EF 15-20% CAD s/p PCI follows with [place] cardiology S/P CVA DM Hx of LV thrombus patient declines oral anticoagulation agents. Recommend: Continue medical therapy for ischemic cardiomyopathy and coronary artery disease as tolerated. Outpatient cardiac evaluation for cardiac defibrillator for primary prevention. Patient will follow up in our office with Dr Long, August 10 at 1040a. Subjective Date of service: 07/07/18 Interval history: Patient has no complaints. Refused to take oral anticoagulation agents. Objective Vital Signs Temp Pulse Pulse Resp BP Pulse Ox 07/07/18 09:56 72 148/99 07/07/18 09:51 56 L 148/99 07/07/18 09:15 97.7 F 56 L 18 148/99 94 07/07/18 04:50 61 07/07/18 03:37 98.4 F 59 L 18 123/84 97 07/06/18 23:54 98.0 F 65 18 107/72 99 07/06/18 23:09 74 121/87 07/06/18 22:45 74 20 93 07/06/18 19:52 98.3 F 74 18 121/87 93 07/06/18 17:00 97.7 F 80 18 130/99 97 07/06/18 12:22 97.7 F 07/06/18 12:21 75 18 118/86 97 - Physical Examination General: No Apparent Distress HEENT: Positive: PERRL Neck: Positive: trachea midline Cardiac: Positive: Reg Rate and Rhythm Lungs: Positive: Decreased Breath Sounds Neuro: Positive: Weakness (right sided residual) Abdomen: Positive: Active Bowel Sounds Extremities: Absent: edema - Labs and Meds Coagulation 07/06/18 07/07/18 Range/Units 16:03 06:32 PT 13.6 13.8 (12.2-14.9) Sec. INR 1.00 1.02 (0.87-1.13) APTT 34.3 (24.2-36.6) Sec. CBC 07/06/18 Range/Units 16:09 Hgb 14.1 (10.1-14.3) gm/dl Hct 43.4 H (30.3-42.9) % Plt Count 246 (140-440) K/mm3 Comprehensive Metabolic Panel 07/07/18 Range/Units 06:32 Sodium 142 (137-145) mmol/L Potassium 4.5 (3.6-5.0) mmol/L Chloride 105.9 (98-107) mmol/L Carbon Dioxide 23 (22-30) mmol/L BUN 25 H (7-17) mg/dL Creatinine 1.6 H (0.7-1.2) mg/dL Glucose 80 (65-100) mg/dL Calcium 9.2 (8.4-10.2) mg/dL
--- NOTE | 2018-07-07 14:27 | Progress Note ---
Assessment and Plan Assessment and plan: 62-year-old woman who presented with shortness of breath, has been coughing during meals CXR; no acute findings Past medical history includes hypertension, cad: history of MO, CHF, w hx of LV thrombosis, diabetes, history of DVT, history of multiple CVA, most recent was in April 2018, now on xarelto non-adherece to meds her has not been giving her any of her meds, despite her being dc with meds, she has had multiple strokes and known LV thrombus and her stopped all her meds, he is refusing heparin ggt, he is very adamant that she does not need meds, unfortunately she is aphasic and unable to speak for herself. dw case management to report to APS all her meds were restarted, home health for med mgt to ensure improved adherence as is not reliable, dw Case management- [place] Acute on chronic CHF, EF 10% hypercoaguable state, hx of LV thrombus -on xarelto -cardiology consult, received lasix, now euvolemic, dc iv lasix due to bump in cr Acute respiratory failure, with hypoxia now weaned off oxygen Hyperkalemia Now resolved after receiving lasix Acute kidney injury, due to vasomotor nephropathy monitor cr, dc lasix now Dysphagia; ST consult, awaiting recs DVT prophylaxis; con xarelto History Interval history: unable to articulate how she is feeling due to expressive aphasia has been coughing when eating -no fever, no seizure -no agitation, no vomiting, no obvious discomfort Hospitalist Physical - Physical exam Narrative exam: General appearance: Present: mild distress, cachectic - EENT Eyes: Present: PERRL ENT: hearing intact, clear oral mucosa - Neck Neck: Present: supple, normal ROM - Respiratory Respiratory effort: normal Respiratory: bilateral: basilar crackles - Cardiovascular Heart Sounds: Present: S1 & S2. Absent: rub, click - Extremities Extremities: pulses symmetrical, No edema Peripheral Pulses: within normal limits - Abdominal General gastrointestinal: Present: soft, non-tender, non-distended, normal bowel sounds Female genitourinary: Present: normal - Integumentary Integumentary: Present: clear, warm, dry - Musculoskeletal Musculoskeletal: gait normal, strength equal bilaterally - Psychiatric Psychiatric: calm and cooperative - Neurologic Neurologic: left hemiplegia, expressive aphasia - Constitutional Vitals: Temp Pulse Resp BP Pulse Ox 97.6 F 77 18 123/90 94 07/07/18 12:44 07/07/18 12:43 07/07/18 12:43 07/07/18 12:43 07/07/18 12:43 General appearance: Present: mild distress, cachectic Results - Labs CBC & Chem 7: 07/06/18 16:09 07/07/18 06:32 Labs: Laboratory Last Values WBC 5.0 K/mm3 (4.5-11.0) 07/03/18 13:15 RBC 4.56 M/mm3 (3.65-5.03) 07/03/18 13:15 Hgb 14.1 gm/dl (10.1-14.3) 07/06/18 16:09 Hct 43.4 % (30.3-42.9) H 07/06/18 16:09 MCV 88 fl (79-97) 07/03/18 13:15 MCH 29 pg (28-32) 07/03/18 13:15 MCHC 33 % (30-34) 07/03/18 13:15 RDW 17.4 % (13.2-15.2) H 07/03/18 13:15 Plt Count 246 K/mm3 (140-440) 07/06/18 16:09 Lymph % (Auto) 35.8 % (13.4-35.0) H 07/03/18 13:15 [place] % (Auto) 8.5 % (0.0-7.3) H 07/03/18 13:15 Eos % (Auto) 1.2 % (0.0-4.3) 07/03/18 13:15 Baso % (Auto) 1.7 % (0.0-1.8) 07/03/18 13:15 Lymph # 1.8 K/mm3 (1.2-5.4) 07/03/18 13:15 [place] # 0.4 K/mm3 (0.0-0.8) 07/03/18 13:15 Eos # 0.1 K/mm3 (0.0-0.4) 07/03/18 13:15 Baso # 0.1 K/mm3 (0.0-0.1) 07/03/18 13:15 Seg Neutrophils % 52.8 % (40.0-70.0) 07/03/18 13:15 Seg Neutrophils # 2.6 K/mm3 (1.8-7.7) 07/03/18 13:15 PT 13.8 Sec. (12.2-14.9) 07/07/18 06:32 INR 1.02 (0.87-1.13) 07/07/18 06:32 APTT 34.3 Sec. (24.2-36.6) 07/06/18 16:03 D-Dimer 135.00 ng/mlDDU (0-234) 07/03/18 13:42 Sodium 142 mmol/L (137-145) 07/07/18 06:32 Potassium 4.5 mmol/L (3.6-5.0) 07/07/18 06:32 Chloride 105.9 mmol/L (98-107) 07/07/18 06:32 Carbon Dioxide 23 mmol/L (22-30) 07/07/18 06:32 Anion Gap 18 mmol/L 07/07/18 06:32 BUN 25 mg/dL (7-17) H 07/07/18 06:32 Creatinine 1.6 mg/dL (0.7-1.2) H 07/07/18 06:32 Estimated GFR 40 ml/min 07/07/18 06:32 BUN/Creatinine Ratio 16 % 07/07/18 06:32 Glucose 80 mg/dL (65-100) 07/07/18 06:32 POC Glucose 132 (70-105) H 07/05/18 16:05 Calcium 9.2 mg/dL (8.4-10.2) 07/07/18 06:32 Total Creatine Kinase 78 units/L (30-135) 07/03/18 13:35 CK-MB (CK-2) 1.9 ng/mL (0.0-4.0) 07/03/18 13:35 CK-MB (CK-2) Rel Index 2.4 (0-4) 07/03/18 13:35 Troponin T 0.027 ng/mL (0.00-0.029) 07/04/18 09:31 NT-Pro-B Natriuret Pep 19930 pg/mL (0-900) H 07/03/18 13:35 Nutrition/Malnutrition Assess - Dietary Evaluation Nutrition/Malnutrition Findings: Nutrition Notes Start: 07/05/18 16:51 Freq: Status: Active Protocol: Document 07/05/18 16:51 OL (Rec: 07/05/18 16:56 OL [facility]-[id number]) Nutrition Notes Need for Assessment generated from: Low BMI Initial or Follow up Assessment Current Diagnosis Coronary Artery Disease Diabetes Hypertension Heart Failure Stroke Other Pertinent Diagnosis aphasia Current Diet cardiac Labs/Tests Cr 1.4 Pertinent Medications Reviewed Height 5 ft 5 in Weight 40.9 kg [place] Body Weight (lbs) 125.0 BMI 15.0 Subjective/Other Information RD screen for low BMI. Pt. with oral dysphagia, seen by [employer] COACH. [employer] COACH recommending regular texture/thin liquids. Pt. reports UBW 75-100#. 50% of lunch consumed so far. Pt. believes she has lost wt. but is unsure of time frame. Pt. drinks Glucerna at home. Burn Absent Trauma Absent #1 Nutrition Diagnosis Inadequate oral intake Etiology dysphagia As Evidenced by Signs and Symptoms unintended wt. loss Is patient on ventilator? No Is Patient Ambulatory and/or Out of Bed No REE-([facility]-confined to bed) 1169.316 Kcal/Kg value to use for calculation 35 Approximate Energy Requirements Using 1432 kcal/Kg Calculation Used for Recommendations Kcal/kg Additional Notes protein (1.2-1.5g/kg): 49-61g fluid: 1mL/kcal or per MD Nutrition Intervention Change Diet Order: Continue cardiac Add Supplement/Snack (indicate name/kcal Glucerna BID /protein ) Provides kCal: 440 Provides Protein (gm) 20 Goal #1 PO + ONS intakes to meet 75- 100% of nutrient needs Anticipated Discharge Needs: Cardiac Follow-Up By: 07/07/18 Additional Comments f/u: intakes, glucose trend, switch to Ensure Enlive if glucose remains normal
[2018-07-07] MEDS: COUMADIN PO SCH (17:43)
[2018-07-07] MEDS: SENOKOT PO SCH (21:46)
[2018-07-07] MEDS ORDERED: COUMADIN PO ONE (22:00)
[2018-07-08 09:05] VITALS: BP 150/105
[2018-07-08] MEDS: APRESOLINE PO SCH (09:37)
[2018-07-08] MEDS: LOPRESSOR PO SCH (09:37)
[2018-07-08] MEDS: HALFPRIN EC PO SCH (09:40)
[2018-07-08] MEDS: SODIUM CHLORIDE FLUSH SYRINGE 10 ML IV SCH (09:40)
[2018-07-08] MEDS ORDERED: PEPCID PO SCH (10:00)
--- NOTE | 2018-07-08 10:37 | Consultation ---
History of Present Illness - Reason for Consult acute renal failure - History of Present Illness 62-year-old -[place] female with a past medical history significant for hypertension, ischemic dilated cardiomyopathy, coronary artery disease, previous ejection fraction of 15-20% who presented to the emergency department secondary to worsening shortness of breath and dyspnea on exertion. This was noted by her who brought her into the emergency room for further evaluation. She has been treated for likely CHF exacerbation while here in the hospital. She was previously on Lasix 20 mg IV twice a day. In the setting of slightly elevated creatinine of the last 24-48 hours her Lasix therapy has been discontinued at this time. Nephrology is being consulted for further evaluation of her acute renal injury. Looking back at previous laboratory studies it seems that her baseline creatinine runs between 1.2-1.5. Patient does not follow up with the welcome desk agent as an outpatient. Her overall respiratory status is stable at this time and she is satting well on room air. Patient does have residual right- sided weakness and dysarthria from her previous CVA. Family was not at bedside during evaluation. Past History Past Medical History: acute AL, CAD, diabetes, DVT, heart failure, hypertension, stroke Past Surgical History: PTCA, Other (Stent, G tube) Social history: , lives with family. denies: smoking Family history: diabetes, hypertension Medications and Allergies Allergies Allergy/AdvReac Type Severity Reaction Status Date / Time No Known Allergies Allergy Verified 03/26/17 07:39 Home Medications Medication Instructions Recorded Confirmed Last Taken Type Atorvastatin Calcium [Lipitor] 40 mg PO DAILY 07/04/18 07/04/18 Unknown History Metoprolol [Lopressor] 25 mg PO DAILY 07/04/18 07/04/18 Unknown History Rivaroxaban [Xarelto] 10 mg PO QDAY 07/04/18 07/04/18 Unknown History Sennosides [Senokot] 8.6 mg PO QHS 07/04/18 07/04/18 Unknown History amLODIPine [Norvasc] 5 mg PO DAILY 07/04/18 07/04/18 Unknown History Active Meds: Active Medications Acetaminophen (Tylenol) 650 mg PO Q4H PRN PRN Reason: Pain MILD(1-3)/Fever >100.5/BURGESS Albuterol (Proventil) 2.5 mg IH Q4H PRN PRN Reason: Shortness Of Breath Aspirin (Halfprin Ec) 81 mg PO QDAY [facility] Last Admin: 07/08/18 09:40 Dose: 81 mg Documented by: Atorvastatin Calcium (Lipitor) 40 mg PO HS [facility] Last Admin: 07/07/18 21:45 Dose: 40 mg Documented by: Famotidine (Pepcid) 20 mg PO DAILY [facility] Last Admin: 07/08/18 09:37 Dose: 20 mg Documented by: Hydralazine HCl (Apresoline) 10 mg IV Q4HR PRN PRN Reason: BP >160/100 Last Admin: 07/04/18 18:51 Dose: 10 mg Documented by: Hydralazine HCl (Apresoline) 25 mg PO BID [facility] Last Admin: 07/08/18 09:37 Dose: 25 mg Documented by: Metoprolol Tartrate (Lopressor) 12.5 mg PO BID [facility] Last Admin: 07/08/18 09:37 Dose: 12.5 mg Documented by: Ondansetron HCl (Zofran) 4 mg IV Q8H PRN PRN Reason: Nausea And Vomiting Senna (Senokot) 8.6 mg PO QHS [facility] Last Admin: 07/07/18 21:46 Dose: Not Given Documented by: Sodium Chloride (Sodium Chloride Flush Syringe 10 Ml) 10 ml IV BID [facility] Last Admin: 07/08/18 09:40 Dose: 10 ml Documented by: Sodium Chloride (Sodium Chloride Flush Syringe 10 Ml) 10 ml IV PRN PRN PRN Reason: LINE FLUSH Review of Systems All systems: negative Constitutional: weakness Cardiovascular: orthopnea, dyspnea on exertion Exam - Vital Signs Vital signs: Vital Signs Temp Pulse BP Pulse Ox 98.1 F 108 H 179/125 96 07/03/18 12:34 07/03/18 12:34 07/03/18 12:34 07/03/18 12:34 - General Appearance General appearance: well-nourished, appears stated age EENT: ATNC, PERRL Neck: Present: neck supple, trachea midline Respiratory: Clear to Ascultation Heart: regular, S1S2 Gastrointestinal: Present: normal, normoactive bowel sounds Integumentary: no rash, warm and dry Neurologic: no focal deficit, no asterixis, alert and oriented x3 Musculoskeletal: Present: other (-edema) Psychiatric: mood/affect appropriate Results - Lab Results 07/06/18 16:09 07/07/18 06:32 Most recent lab results Calcium 9.2 mg/dL (8.4-10.2) 07/07/18 06:32 Assessment and Plan - Patient Problems (1) DENISE (acute kidney injury) Current Visit: No Status: Acute Plan to address problem: Possible in the setting of acute congestive heart failure exacerbation, cardiorenal syndrome. Continue to monitor renal function daily. Will obtain a renal ultrasound as well as urinalysis and urine electrolytes. IV diuretics have been discontinued at this time. Can restart at a lower dose of Lasix. Would recommend possibly Lasix 20 mg daily by mouth. Avoid all nephrotoxins. (2) Acute on chronic systolic heart failure Current Visit: Yes Status: Acute Plan to address problem: Most recent echocardiogram indicating ejection fraction of 15-20%. Patient is being followed by cardiology. IV diuretic regimen has been discontinued. Her overall volume status seems to be stable. She may benefit from small daily dose of Lasix at 20 mg by mouth once a day to prevent any fluid overload and CHF exacerbations. Counseled patient on importance of appropriate fluid and salt restriction. She will be closely monitored and followed up by cardiology in the outpatient [facility]. (3) Hypertensive chronic kidney disease with stage 1 through stage 4 chronic kidney disease, or unspecified chronic kidney disease Current Visit: Yes Status: Acute Plan to address problem: Continue current regimen at this time. We'll closely monitor. Would recommend we go up on hydralazine to 50 mg twice a day if needed for better control. (4) Type 2 diabetes mellitus with diabetic chronic kidney disease Current Visit: Yes Status: Acute Plan to address problem: Diabetes management per primary team (5) CVA (cerebral vascular accident) Current Visit: No Status: Acute Qualifiers: CVA mechanism: stenosis Precerebral and cerebral artery: middle cerebral artery Laterality of affected vessel: right Qualified Code(s): I63.511 - Cerebral infarction due to unspecified occlusion or stenosis of right middle cerebral artery Plan to address problem: Patient continues to have residual right-sided weakness and dysarthria. Further management per primary team. Patient also has history of DVT and is on chronic anticoagulation therapy. (6) Hyperlipidemia Current Visit: No Status: Chronic Qualifiers: Hyperlipidemia type: mixed hyperlipidemia Qualified Code(s): E78.2 - Mixed hyperlipidemia Plan to address problem: Continue current statin therapy at this time.
--- NOTE | 2018-07-08 11:43 | Progress Note ---
Addendum entered and electronically signed by MARILEE CALDERA MD 07/08/18 16:59: Medical therapy for severe ischemic cardiomyopathy on chronic systolic heart evens marshall. She is recommended for further outpatient electrophysiologic assessment for primary ICD implant. Original Note: Assessment and Plan Uncontrolled Hypertension -reason for admission Acute renal failure IV lasix held due to rise in creatinine. Acute on chronic systolic heart failure Hx of Ischemic cardiomyopathy, EF 15-20% CAD s/p PCI follows with [place] cardiology S/P CVA DM Hx of LV thrombus patient declines oral anticoagulation agents. Recommend: Continue medical therapy for ischemic cardiomyopathy and coronary artery disease as tolerated. Outpatient cardiac evaluation for cardiac defibrillator for primary prevention. Patient will follow up in our office with Dr Long, August 10 at 1040a. Subjective Date of service: 07/08/18 Interval history: Patient has no complaints. Objective Vital Signs Temp Pulse Resp BP BP Pulse Ox 07/08/18 09:37 70 150/105 07/08/18 09:04 97.5 F L 07/08/18 09:03 69 18 150/105 100 07/08/18 04:35 98.0 F 77 18 136/98 92 07/08/18 04:00 75 07/07/18 23:40 98.0 F 75 18 140/105 91 07/07/18 22:00 18 98 07/07/18 21:47 69 116/87 07/07/18 21:46 69 116/87 07/07/18 20:00 67 07/07/18 19:49 98.0 F 69 18 116/87 98 07/07/18 17:20 97.6 F 67 18 129/96 93 07/07/18 17:19 97.6 F 18 129/96 78 L 07/07/18 12:44 97.6 F 07/07/18 12:43 77 18 123/90 94 - Physical Examination General: No Apparent Distress HEENT: Positive: PERRL Neck: Positive: trachea midline Cardiac: Positive: Reg Rate and Rhythm Lungs: Positive: Decreased Breath Sounds Neuro: Positive: Weakness (right sided residual) Abdomen: Positive: Active Bowel Sounds Extremities: Absent: edema
--- NOTE | 2018-07-08 14:47 | Ultrasound Report ---
ULTRASOUND RENAL BILATERAL HISTORY: Acute renal insufficiency. TECHNIQUE: transabdominal ultrasound with color Doppler interrogation. FINDINGS: The right kidney measures 6.4 x 2.1 x 2.5cm. Right renal cortex: 0.6cm. The left kidney measures 8.4 x 4.7 x 4.8cm. Left renal cortex: 1.3cm. The right kidney is atrophic and markedly echogenic with poor corticomedullary differentiation. The left kidney is borderline atrophic with minimal increased echotexture. There is no evidence for shadowing calculus, cystic disease, mass or hydronephrosis. The bladder is empty. IMPRESSION: Atrophic and echogenic right kidney consistent with chronic renal disease. Slightly echogenic left kidney consistent with nonspecific renal parenchymal disease. No evidence for obstructive uropathy
--- NOTE | 2018-07-08 14:52 | Discharge Summary ---
Providers - Providers Date of Admission: 07/03/18 16:32 Attending physician: NIRMAL ROCHA MD 07/03/18 15:29 Consult to Cardiology [CONS] Routine Consulting Provider: MARILEE CALDERA Reason For Exam: chf 07/04/18 10:49 Speech Therapy Evaluation and Treat [CONS] Routine Reason For Exam: dysphagia 07/07/18 14:27 Consult to Physician [CONS] Routine Comment: Consulting Provider: LADY LOMAX Physician Instructions: Reason For Exam: roseanna Primary care physician: GOVERNMENT RELATIONS ANALYST Hospitalization Condition: Fair Hospital course: 62-year-old woman who presented with shortness of breath, has been coughing during meals CXR; no acute findings Past medical history includes hypertension, cad: history of DC, CHF, w hx of LV thrombosis, diabetes, history of DVT, history of multiple CVA, most recent was in April 2018, now on xarelto -The patient's states that he stopped all her meds, because he did not think she needed them. However the patient is aphasic and unable to speak for herself. All her medications were restarted. The patient's was adamant that he is not going to continue them once she is discharged from the hospital. He was offered home health, he refused it was also offered home hospice he also refused. The patient's was not a reliable historian, he said she did not had a stroke in over a year, but she had a stroke as recent as April 2 months ago. The risks of not taking the medications which include worsening of her condition, recurrent strokes and possibly were explained to the , but to no avail. -Discussed the case management, APS referral was put in, because we do not believe that he is acting in her best interest. * She also suffered from dysphagia, speech therapy was working with her, and they recommended ongoing speech therapy at home upon discharge. Per the patient's is refusing home health. * -She was diuresed, she was restarted on all her medications, which included blood thinners as the patient has a history of LV thrombus. The refused heparin drip, she was started on warfarin. All prescriptions were given to the patient's at the time of discharge. * Hyperkalemia resolved with diuresis, she was treated with oxygen and weaned off oxygen prior to discharge Diagnoses non adherence to medications, due to patient's refusal Acute on chronic CHF, systolic, EF 10% LV thrombus Acute respiratory failure with hypoxia Hyperkalemia Acute kidney injury due to vasomotor nephropathy Dysphasia History of multiple strokes in the past Disposition: DC-01 TO HOME OR SELFCARE Time spent for discharge: 33 mins Core Measure Documentation - Palliative Care Palliative Care/ Comfort Measures: Not Applicable - Core Measures Any of the following diagnoses?: heart failure - Heart Failure Discharge Requirements AMBER/ARB for LVSD if EF <40%: Yes Beta ojy at discharge: Yes Exam - Physical Exam Narrative exam: General appearance: Present: mild distress, cachectic - EENT Eyes: Present: PERRL ENT: hearing intact, clear oral mucosa - Neck Neck: Present: supple, normal ROM - Respiratory Respiratory effort: normal Respiratory: bilateral: basilar crackles - Cardiovascular Heart Sounds: Present: S1 & S2. Absent: rub, click - Extremities Extremities: pulses symmetrical, No edema Peripheral Pulses: within normal limits - Abdominal General gastrointestinal: Present: soft, non-tender, non-distended, normal bowel sounds Female genitourinary: Present: normal - Integumentary Integumentary: Present: clear, warm, dry - Musculoskeletal Musculoskeletal: gait normal, strength equal bilaterally - Psychiatric Psychiatric: calm and cooperative - Neurologic Neurologic: left hemiplegia, expressive aphasia - Constitutional Vitals: Temp Pulse Resp BP Pulse Ox 97.5 F L 77 18 150/105 100 07/08/18 09:04 07/08/18 12:00 07/08/18 09:03 07/08/18 09:37 07/08/18 09:03 Plan Additional Instructions: please follow up with your PCP in 3-4 days to have your INR, warfarin (blood thinner levels) checked. Follow up with: PRIMARY CARE, [Primary Care Provider] - 3-5 Days Forms: Warfarin Discharge Instruction Prescriptions: Aspirin EC [Aspirin Enteric Coated TAB] 81 mg PO QDAY #30 tablet Atorvastatin Calcium [Lipitor] 40 mg PO DAILY #30 tablet hydrALAZINE [Apresoline TAB] 25 mg PO BID #60 tablet Metoprolol Succinate [Toprol Xl] 25 mg PO DAILY #30 tab.er.24h Warfarin [Coumadin] 5 mg PO QDAY #30 tablet
== END 2018-07-08 21:41 | disposition home or self-care (01) | DRG 682 ==
LOC: ED 11:58 → 4A 16:32
PROVIDERS: ADMIT Internal Medicine; ATTEND Internal Medicine
DX: N17.0 Acute kidney failure with tubular necrosis (principal); J96.01 Acute respiratory failure with hypoxia; I50.41 Acute combined systolic (congestive) and diastolic (congestive) heart failure; D68.59 Other primary thrombophilia; I42.0 Dilated cardiomyopathy; I13.0 Hypertensive heart and chronic kidney disease with heart failure and stage 1 through stage 4 chronic kidney disease, or unspecified chronic kidney disease; I69.354 Hemiplegia and hemiparesis following cerebral infarction affecting left non-dominant side; I25.10 Atherosclerotic heart disease of native coronary artery without angina pectoris; E87.5 Hyperkalemia; R13.10 Dysphagia, unspecified; N18.9 Chronic kidney disease, unspecified; E11.22 Type 2 diabetes mellitus with diabetic chronic kidney disease; R47.1 Dysarthria and anarthria; E78.2 Mixed hyperlipidemia; I25.5 Ischemic cardiomyopathy; I25.2 Old myocardial infarction; Z82.49 Family history of ischemic heart disease and other diseases of the circulatory system; Z86.718 Personal history of other venous thrombosis and embolism; Z83.3 Family history of diabetes mellitus; Z79.899 Other long term (current) drug therapy; Z95.5 Presence of coronary angioplasty implant and graft
CPT/HCPCS: 36415; 71045; 76770; 80048; 82550; 82553; 82962; 83880; 84132; 84484; 85014; 85018; 85025; 85049; 85379; 85610; 85730; 93005; 93010; 94640; G0378; A9270-GY; J0360; J1940